=== PATIENT | female | born 1940 | race Caucasian/White ===

== ENCOUNTER → 2017-03-01 09:43 | Outpatient (CLI) | payer MEDICARE ==
[2017-03-01 10:14] LABS: BASOPHILS 0.3 % (0-2); EOSINOPHILS 1.4 % (0-7); HEMATOCRIT 44.2 % (36.0-48.0); HEMOGLOBIN 14.4 g/dL (12-16); IMMATURE GRANULOCYTES 0.2 % (0-5); LYMPHOCYTES 27.2 % (15-50); MCHC 32.6 g/dL (31.0-37.0); MEAN PLATELET VOLUME 9.7 fL (7.4-10.4); MONOCYTES 5.2 % (2-11); NEUTROPHILS 65.7 % (40-80); PLATELET COUNT 162 10x3/uL (130-400); RBC 5.14 10x6/uL (4.00-5.40); WBC 5.9 10x3/uL (4.8-10.8)
[2017-03-01 10:21] LABS: APPEARANCE CLEAR (CLEAR); BILIRUBIN NEGATIVE (NEGATIVE); COLOR YELLOW (YELLOW); GLUCOSE NEGATIVE (NEGATIVE); KETONE NEGATIVE (NEGATIVE); LEUKOCYTE ESTERASE NEGATIVE (NEGATIVE); NITRITE NEGATIVE (NEGATIVE); PROTEIN NEGATIVE (NEGATIVE); SPECIFIC GRAVITY 1.005 (1.005-1.020); UROBILINOGEN NORMAL (NORMAL)
[2017-03-01 10:32] LABS: ALT (SGPT) 22 U/L (10-68); C-REACTIVE PROTEIN < 0.2 mg/dL (0.0-0.9); CREATININE - SERUM 0.8 mg/dL (0.6-1.3); UREA NITROGEN 17 mg/dL (7-18)
[2017-03-01 12:27] LABS: ERYTHROCYTE SEDIMENTATION RATE 8 mm/hr (0-30)
== END | disposition home or self-care (01) ==
LOC: D.LAB 09:43
PROVIDERS: Internal Medicine Rheumatology
DX: M35.01 Sjogren syndrome with keratoconjunctivitis (principal)

== ENCOUNTER 2017-03-07 11:19 | Outpatient (CLI) | payer MEDICARE ==
[~2017-03-07] VITALS: Ht 152.4 cm; Wt 51.4 kg
--- NOTE | ~2017-03-07 | OP ---
PATIENT NAME: JADIEL PATINO MEDICAL RECORD: [id number] :40 LOCATION:D.CAT ADMISSION DATE: SURGEON: ELEAZAR BIRD M.D. DATE OF OPERATION: 03/07/2017 REFERRING PHYSICIAN: Dr. Loi Haskins PROCEDURES PERFORMED: 1. Selective coronary angiography. 2. Left heart catheterization with ventriculogram. INDICATION: A 76-year-old woman who presents with symptoms of worsening dyspnea and angina. EQUIPMENT USED: A 5-Bolivian [place] catheter. TECHNIQUE: A 6-Bolivian sheath was inserted in retrograde fashion in the right radial artery. Next, selective coronary angiography was performed in standard views using 5-Bolivian [place] catheter. Left heart catheterization performed using [place] catheter as well. CORONARY ANATOMY: 1. Left main: Left main trunk is large in caliber. It is calcified. It gives rise to the LAD and the circumflex. It has a distal 70-80% stenosis. 2. LAD: This is a moderate caliber vessel extending to the apex. Mid segment has a 70% stenosis. The first diagonal branch has an ostial 70-80% stenosis as well. 3. Circumflex: This vessel is small in caliber. It showed diminutive, but has mild irregularities. 4. Right coronary artery: This vessel is quite large and dominant. The proximal, mid and distal vessels are all calcified. There appears to be a 50-60% stenosis in the far distal PDA. 5. Left ventricle: Left ventricle is normal in size. Systolic function is lower limits of normal around 50%. There appears to be at least moderate mitral regurgitation noted. There is mitral annular calcification noted as well. IMPRESSION: 1. Significant distal left main disease. 2. At least moderate mitral regurgitation. RECOMMENDATIONS: I suspect her symptoms may be a combination of mitral regurgitation as well as ischemia. I will check an echocardiogram to assess her mitral regurgitation. We may need to consider surgical consultation for her left main disease. TRANSINT:[id number] Voice Confirmation ID: [id number] DOCUMENT ID: [id number] OPERATIVE REPORT [id number] JADIEL PATINO ELEAZAR BIRD M.D. CC: [id number] DICTATION DATE: 03/07/17 1412 ROPEMAN: 03/08/17 0001 DEP CLI 03/07/17 [id number] [place] [address]
--- NOTE | ~2017-03-07 | HEMODYNAMI ---
PATIENT:JADIEL PATINO MEDICAL RECORD: [id number] : 40 LOCATION:D.CAT ADMISSION DATE: 03/07/17 Generatedon:03/07/201714:11 Patient name: JADIEL PATINO Patient #: [id number] SSN: : Date of study: 03/07/2017 Page: Of Hemodynamic Procedure Report Patient Data Patient Demographics Procedure consent was obtained First Name: JADIEL Gender: Female Last Name: SUKUMAR : 1940 Middle Initial: MERRILL Age: 76 year(s) Patient #: [id number] Race: Unknown Additional ID: [id number] Contact details [address]: [address] [place] [address] State: [place] City: [place] Zip code: [address] Past Medical History Allergies: No known allergies Admission Admission Data Admission Date: 03/07/2017 Admission Time: 11:19 Lab Results Lab Result Date: 03/07/2017 Lab Result Time: 11:52 Biochemistry Name Units Result Min Max BUN mg/dl 16 --(---*)-- 7 18 Creatinine mg/dl 0.6 --(*---)-- 0.6 1.3 CBC Name Units Result Min Max Hematocrit % 42.9 --(*---)-- 42 54 Hemoglobin g/dl 14.3 --(*---)-- 13.5 17.5 Procedure Procedure Types Cath Procedure Diagnostic Procedure C [facility] w/Coronaries Miscellaneous Procedures Moderate Sedation up to 15 minutes Procedure Description Procedure Date Procedure Date: 03/07/2017 Procedure Start Time: 13:58 Procedure End Time: 14:10 Procedure Staff Name Function Domo Robins MD Performing Physician Jadyn Reed RT Scrub Kwadwo Jensen RT Monitor Jeremías Jamison RN Nurse Procedure Data Cath Procedure Fluoroscopy Diagnostic fluoroscopy Total fluoroscopy Time: 2.5 time: 2.5 min min Diagnostic fluoroscopy Total fluoroscopy dose: 277 dose: 277 mGy mGy Contrast Material Contrast Material Type Amount (ml) Isovue 300 64 Entry Location Entry Primary Successful Side Size Upsize Upsize Entry Closure Antoine ccessful Closure Location (Fr) 1 (Fr) 2 (Fr) Remarks Device Remarks Radial Right 6 Fr Mechanical artery Short Compression Estimated blood loss: 5 ml Diagnostic catheters Device Type Used For End Catheter Placement Diagnostic Terumo 5Fr Procedure [place] 110cm catheter Procedure Complications No complications Procedure Medications Medication Administration Route Dosage Oxygen NC 2 l/min Heparin Flush Bag added to field 2 bags (1000units/500ml NS) 0.9% NaCl I.V. 100 ml/hr Radial Cocktail added to field 1 syringe (Verapomil 2mg/Nitro 400mcg/Heparin 1500units) Fentanyl I.V. 50 mcg Versed I.V. 1 mg Radial Cocktail I.A. 1 syringe (Verapomil 2mg/Nitro 400mcg/Heparin 1500units) Fentanyl I.V. 50 mcg Versed I.V. 1 mg Hemodynamics Rest HGB: 14.3 (g/dl) Heart Rate: 65 (bpm) Pressure Samples Time Site Value (mmHg) Purpose Heart Use Rate(bpm) 14:00 LV 129/1,15 Snapshot 72 14:01 AO 118/62(86) Pullback 70 14:01 LV 126/-3,11 Pullback 70 Gradients Valve Time Site 1 Site 2 Mean SEP/DFP Peak To Heart Use (mmHg) (sec/min) Peak Rate (mmHg) (bpm) Aortic 14:01 LV AO 13 18 8 70 126/-3,11 118/62(86) Calculations Valve P-P Mean Valve Index Valve Source Name Gradient Area Flow (cm2) Aortic 8 13 8 13 Snapshots Pre Cath Intra NCS Post Cath Vital Signs Time Heart Resp SPO2 NIBP (mmHg) Rhythm Pain Sedation Rate (ipm) (%) Status Level (bpm) 13:40:47 69 19 97 149/83(129) NSR 0 (11) 10(A) , No pain 13:44:57 69 21 97 157/97(131) NSR 0 (11) 10(A) , No pain 13:49:15 64 19 98 142/76(124) NSR 0 (11) 10(A) , No pain 13:53:29 66 19 94 146/74(95) NSR 0 (11) 10(A) , No pain 13:57:45 69 18 95 128/70(92) NSR 0 (11) 9(A) , No pain 14:01:59 70 16 94 113/61(75) NSR 0 (11) 9(A) , No pain 14:06:05 65 17 96 117/64(87) NSR 0 (11) 9(A) , No pain 14:09:40 65 18 96 115/61(87) NSR 0 (11) 10(A) , No pain Medications Time Medication Route Dose Verified Delivered Reason Notes Effectiveness by by 13:41:15 Oxygen NC 2 l/min Jeremías Jeremías Per Shaheen Jamison RN physician RN 13:41:23 Heparin Flush added 2 bags Jeremías Jeremías used for Bag to Shaheen Jamison RN procedure (1000units/500ml field RN NS) 13:41:32 0.9% NaCl I.V. 100 Jeremías Jeremías Per ml/hr Shaheen Jamison RN physician RN 13:41:42 Radial Cocktail added 1 Jeremías Jeremías used for (Verapomil to syringe Shaheen Jamison RN procedure 2mg/Nitro field RN 400mcg/Heparin 1500units) 13:53:14 Fentanyl I.V. 50 mcg Jeremías Jeremías for sedation Shaheen Jamison RN RN 13:53:21 Versed I.V. 1 mg Jeremías Jeremías for sedation Shaheen Jamison RN RN 13:59:13 Radial Cocktail I.A. 1 Jeremías Domo for (Verapomil syringe Shaheen Robins MD vasodilation 2mg/Nitro RN 400mcg/Heparin 1500units) 13:59:18 Fentanyl I.V. 50 mcg Jeremías Jeremías for sedation Shaheen Jamison RN RN 13:59:23 Versed I.V. 1 mg Jeremías Jeremías for sedation Shaheen Jamison RN heavy equipment sales associate Log Time Note 12:57:30 Informed consent obtained and on chart 12:58:16 Diagnostic Cath status Elective 12:58:18 Time tracking: Regular hours 12:58:22 Plan of Care:Hemodynamics will remain stable., Cardiac rhythm will remain stable., Comfort level will be maintained., Respiratory function will remain adequate., Patient/ family verbilizes understanding of procedure., Procedure tolerated without complication., Recovers from procedure without complications.. 13:20:04 Kwadwo BRAMBILA(R) sent for patient. Start room use. 13:34:19 Patient received from Pre/Post Procedure Room to CCL 2 Alert and oriented. Tansferred to table in Supine position. 13:34:20 Warm blankets applied, and kandi hugger turned on for patient comfort. 13:34:21 Correct patient and procedure confirmed by team. 13:34:22 ECG and BP/O2 sat monitors applied to patient. 13:34:24 Full Disclosure recording started 13:39:38 Vital chart was started 13:41:15 Oxygen 2 l/min NC was administered by Jeremías Jamison RN; Per physician; 13:41:23 Heparin Flush Bag (1000units/500ml NS) 2 bags added to field was administered by Jeremías Jamison RN; used for procedure; 13:41:32 0.9% NaCl 100 ml/hr I.V. was administered by Jeremías Jamison RN; Per physician; 13:41:42 Radial Cocktail (Verapomil 2mg/Nitro 400mcg/Heparin 1500units) 1 syringe added to field was administered by Jeremías Jamison RN; used for procedure; 13:49:29 Baseline sample Acquired. 13:49:36 Rhythm: sinus rhythm 13:49:52 H&P Date Dictated: 03/01/2017 Within 30 days and on chart., H&P Addendum completed by physician on day of procedure. (MUST COMPLETE FOR ALL OUTPATIENTS). 13:49:53 Pre-procedure instructions explained to patient. 13:49:54 Pre-op teaching completed and patient verbalized understanding. 13:49:59 Family in waiting room. 13:50:01 Patient NPO since Midnight. 13:50:12 Patient allergic to No known allergies 13:50:14 Is the patient allergic to Iodine/contrast media? No. 13:50:18 Is patient on blood thinner?No 13:50:19 Patient diabetic? No. 13:50:25 Previous problem with sedation/anesthesia? No ? 13:50:27 Snore? No 13:50:28 Sleep apnea? No 13:50:29 Deviated septum? No 13:50:30 Opens mouth fully? Yes 13:50:31 Sticks out tongue? Yes 13:50:32 Airway obstruction? No ? 13:50:35 Dentures? No ? 13:50:37 Modified Osorio's test Ulnar < 7 seconds 13:50:39 Patient pain scale 0/10 ?. 13:50:45 IV patent on arrival in left hand with 0.9% NaCl at [facility]. 13:51:15 Lab results completed and on chart. 13:52:09 Lab Result : BUN 16 mg/dl 13:52:09 Lab Result : Hemoglobin 14.3 g/dl 13:52:09 Lab Result : Creatinine 0.6 mg/dl 13:52:09 Lab Result : Hematocrit 42.9 % 13:52:16 Right Radial & Right Groin area was prepped with chlora-prep and draped in sterile fashion 13:52:16 Alarms reviewed by R. N. 13:52:17 Sharps counted by scrub and verified by R.N. 13:52:26 Use device set Radial Dx 13:52:28 MBrace Wrist Support opened to sterile field. 13:52:30 Acist Syringe opened to sterile field. 13:52:30 Medline Cath Pack opened to sterile field. 13:52:31 Cook 21G 4cm Radial Needle opened to sterile field. 13:52:31 Bag Decanter opened to sterile field. 13:52:32 Tegaderm 4 x 4 opened to sterile field. 13:52:32 Acist Manifold opened to sterile field. 13:52:33 Acist Hand Control opened to sterile field. 13:52:43 Terumo 6Fr Slender Glidesheath opened to sterile field. 13:52:43 St Lakhwinder 260cm J .035 wire opened to sterile field. 13:52:48 Physician arrived 13:52:49 --------ALL STOP TIME OUT------ 13:52:49 Final Timeout: patient, procedure, and site verified with staff and physician. All members of the team are in agreement. 13:52:51 Right Radial & Right Groin site verified by team. 13:52:54 Physical assessment completed. ASA score P 2 - A patient with mild systemic disease as per Domo Robins MD. 13:52:58 Sedation plan: IV Moderate Sedation Versed, Fentanyl 13:53:14 Fentanyl 50 mcg I.V. was administered by Jeremías Jamison RN; for sedation; 13:53:21 Versed 1 mg I.V. was administered by Jeremías Jamison RN; for sedation; 13:55:35 Zero performed for pressure channel P1 13:58:17 Procedure started. 13:58:41 Local anesthetic to right radial artery with Lidocaine 2% by Domo Robins MD.INITIAL ACCESS ONLY 13:58:49 A 6 Fr Short sheath was inserted into the Right Radial artery 13:59:13 Radial Cocktail (Verapomil 2mg/Nitro 400mcg/Heparin 1500units) 1 syringe I.A. was administered by Domo Robins MD; for vasodilation; 13:59:18 Fentanyl 50 mcg I.V. was administered by Jeremías Jamison RN; for sedation; 13:59:18 A Diagnostic Terumo 5Fr [place] 110cm catheter was advanced over the wire and used for Procedure. 13:59:23 Versed 1 mg I.V. was administered by Jeremías Jamison RN; for sedation; 14:01:03 LV gram done using JAEGER 14:01:06 Injector settings: Ml/sec: 10, Volume: 20, 14:01:09 LV hemodynamics recorded. 14:01:37 EF : 50 % 14:02:27 LCA angiography performed. 14:05:34 Catheter removed. 14:07:30 Terumo TR Band Standard opened to sterile field. 14:07:46 Sheath removed intact; hemostasis achieved with Mechanical Compression to the Right Radial artery. 14:07:48 Procedure ended.(Physican Out) 14:07:57 Fluoroscopy time 02.50 minutes. 14:08:01 Flurop Dose total: 277 14:08:01 Fluoroscopy dose: 277 mGy 14:08:05 Contrast amount:Isovue 300 64ml. 14:08:06 Sharps counted by scrub and verified by R.N. 14:08:08 TR band inflated with 12cc of air. 14:08:09 Insertion/operative site no bleeding no hematoma. 14:08:18 Post right radial artery:stable, soft, clean and dry 14:08:20 Post Procedure Pulses reassessed and unchanged 14:08:24 Post-procedure physical assessment completed. ASA score P 2 - A patient with mild systemic disease as per Domo Robins MD. 14:08:26 Post procedure rhythm: unchanged. 14:08:29 Estimated blood loss: 5 ml 14:08:52 Post procedure instruction explained to patient.Patient verbalizes understanding. 14:08:53 Patient needs reinforcement of post procedure teaching. 14:09:07 Procedure type changed to Cath procedure, Diagnostic procedure, LHC, LHC w/Coronaries, Miscellaneous Procedures, Moderate Sedation up to 15 minutes 14:10:07 Procedure and supply charges have been captured, reviewed, submitted and are correct. 14:10:13 Procedure Complication : No complications 14:10:15 Vital chart was stopped 14:10:24 See physician's report for complete and final results. 14:10:28 Report given to Pre/Post Procedure Room. 14:10:32 Patient transfered to Pre/Post Procedure Room with Stretcher. 14:10:35 Procedure ended. 14:10:35 Full Disclosure recording stopped 14:10:39 End room use (Document Last) Device Usage Item Name Manufacture Quantity Catalog Hospital Part Current Minimal Lot# / Number Charge Number Stock Stock Serial# Code [facility] 1 140-0250-00 [id number] 60610 181585 5 Wrist Vascular Support Dynamics Acist Acist 1 03271 855273 598153 872533 20 Syringe [employer] Inc Medline Cardinal 1 [id number] 387938 41074 088457 5 Cath Pack Health Bag Microtek 1 2002S 895386 89778 979987 5 Decanter [employer] Tegaderm 4 3M 1 [id number] 465546 198756 480526 5 x 4 Acist Acist 1 74954 267420 013305 302658 5 Manifold [employer] Inc Acist Hand Acist 1 71580 567702 558058 325684 5 Control [employer] Inc Terumo 6Fr Terumo 1 [id number] 989622 725367 098940 [address] Lakhwinder 1 779162 178958 358332 408304 30 260cm J .035 wire Diagnostic Terumo 1 40-2057 178639 314107 496227 5 Terumo 5Fr [place] 110cm catheter Terumo TR Terumo 1 [id number] 342754 409032 835854 40 Band Standard Cook 21G [employer] 1 [id number] 484641 167994 5 4cm Radial Needle Signature Audit [place] Stage Time Signature Unsigned Intra-Procedure 03/07/2017 Kwadwo Jensen 2:11:32 PM RT(R) Signatures Monitor : Kwadwo Jensen RT Signature : Date : Time : [address] [place] [address]
[2017-03-07] MEDS ORDERED: SALAGEN5 MG PO (11:38)
[2017-03-07] MEDS ORDERED: TIMOPTIC 0.25% O5 M1 LEFT EYE (11:39)
[2017-03-07 11:44] VITALS: BP 168/82; Ht 152.4 cm; Wt 51.4 kg
[2017-03-07 11:56] LABS: BASOPHILS 0.3 % (0-2); EOSINOPHILS 1.5 % (0-7); HEMATOCRIT 42.9 % (36.0-48.0); HEMOGLOBIN 14.3 g/dL (12-16); IMMATURE GRANULOCYTES 0.3 % (0-5); LYMPHOCYTES 32.6 % (15-50); MCH 28.4 pg (26.0-34.0); MCHC 33.3 g/dL (31.0-37.0); MCV 85.1 fL (80.0-100.0); MONOCYTES 5.2 % (2-11); NEUTROPHILS 60.1 % (40-80); PLATELET COUNT 165 10x3/uL (130-400); RBC 5.04 10x6/uL (4.00-5.40); RDW 14.2 % (11.5-14.5); WBC 7.5 10x3/uL (4.8-10.8)
[2017-03-07 12:19] LABS: CALC OSMOLALITY 275 mosm/kg (275-300); CARBON DIOXIDE 25.1 mmol/L (21.0-32.0); CHLORIDE - SERUM 102 mmol/L (98-107); CREATININE - SERUM 0.6 mg/dL (0.6-1.3); GLUCOSE 88 mg/dL (74-106); POTASSIUM - SERUM 4.4 mmol/L (3.5-5.1); SODIUM 138 mmol/L (136-145); UREA NITROGEN 16 mg/dL (7-18); eGFR NON AFRICAN AMERICAN > 90 mL/min (90-120)
--- NOTE | 2017-03-07 14:27 | NUR ---
HR 65 NSR BP 149/53 NO DISTRESS NOTED. TR BAND TO R/WRIST CDI NO BLEEDING NO HEMATOMA NOTED. INSTRUCTED PATIENT TO KEEP RUE STRAIGHT NO BENDING OR FLEXING OF WRIST.
--- NOTE | 2017-03-07 14:50 | NUR ---
DR BIRD AT BEDSIDE TALKING TO AND PATIENT CHEST PAIN DENIED TR BAND REMAINS TO R/WRIST CDI
--- NOTE | 2017-03-07 15:04 | NUR ---
REPOSITIONED TO SITTING WITH HOB UP 30 DEGREES CHEST PAIN IS DENIED VSS TR BAND REMAINS TO R/WRIST CDI. SANDWICH AND SODA TO BEDSIDE WITH ASSISTING
--- NOTE | 2017-03-07 15:32 | NUR ---
VSS WITH CHEST PAIN DENIED. TR BAND REMAINS TO R/WRIST CDI NO BLEEDING NO HEMATOMA NOTED
--- NOTE | 2017-03-07 16:09 | NUR ---
2 CC AIR REMOVED FROM TR BAND WITH NO BLEEDING NOTED. VSS CHEST PAIN DENIED
--- NOTE | 2017-03-07 16:30 | NUR ---
2 CC AIR REMOVED FROM TR BAND WITH NO BLEEDING NO HEMATOMA NOTED
--- NOTE | 2017-03-07 16:41 | NUR ---
2 CC AIR REMOVED FROM TR BAND WITH NO BLEEDING
--- NOTE | 2017-03-07 17:06 | NUR ---
PIV REMOVED WITH DRESSING APPLIED. TR BAND REMOVED WITH NO BLEEDING NO HEMATOMA NOTED. CHEST PAIN IS DENIE WITH VSS. DISCHARGE GONE OVER WITH PATIENT AND LEFT VIA WC TO [facility] FOR TRANSPORT HOME
== END 2017-03-07 17:08 | disposition home or self-care (01) ==
LOC: D.CATH 11:19
PROVIDERS: Internal Medicine Cardiovascular Disease
DX: I25.10 Atherosclerotic heart disease of native coronary artery without angina pectoris (principal); I34.0 Nonrheumatic mitral (valve) insufficiency

== ENCOUNTER → 2017-04-19 11:36 | Outpatient (CLI) | payer MEDICARE ==
[~2017-04-19] VITALS: Ht 149.9 cm; Wt 51.4 kg
--- NOTE | ~2017-04-19 | HEMODYNAMI ---
PATIENT:JADIEL PATINO MEDICAL RECORD: [id number] : 40 LOCATION:D.CAT ADMISSION DATE: 04/19/17 Generatedon:04/19/201714:24 Patient name: JADIEL PATINO Patient #: [id number] SSN: : Date of study: 04/19/2017 Page: Of Hemodynamic Procedure Report Patient Data Patient Demographics Procedure consent was obtained First Name: JADIEL Gender: Female Last Name: SUKUMAR : 1940 Middle Initial: MERRILL Age: 76 year(s) Patient #: [id number] Race: Unknown Additional ID: [id number] Contact details [address]: [address] [place] [address] State: [place] City: [place] Zip code: [address] Past Medical History Allergies: No known allergies Admission Admission Data Admission Date: 04/19/2017 Admission Time: 11:36 Lab Results Lab Result Date: 04/19/2017 Lab Result Time: 0:00 Biochemistry Name Units Result Min Max BUN mg/dl 18 --(---*)-- 7 18 Creatinine mg/dl 0.9 --(-*--)-- 0.6 1.3 CBC Name Units Result Min Max Hemoglobin g/dl 12.8 -*(----)-- 13.5 17.5 Procedure Procedure Types Cath Procedure PCI Procedure Coronary Stent Initial Miscellaneous Procedures Moderate Sedation up to 30 minutes Procedure Description Procedure Date Procedure Date: 04/19/2017 Procedure Start Time: 13:51 Procedure End Time: 14:18 Procedure Staff Name Function Domo Williamson MD Performing Physician Gabriel Malik RT Scrub Jordyn Arrieta RN Nurse Jose Whatley RT Monitor Jan Nunez RT Nut Sifter Procedure Data Cath Procedure Fluoroscopy Diagnostic fluoroscopy Total fluoroscopy Time: 3.5 time: 3.5 min min Diagnostic fluoroscopy Total fluoroscopy dose: 197 dose: 197 mGy mGy Contrast Material Contrast Material Type Amount (ml) Isovue 300 72 Entry Location Entry Primary Successful Side Size Upsize Upsize Entry Closure Succes sful Closure Location (Fr) 1 (Fr) 2 (Fr) Remarks Device Remarks Femoral Right 6 Fr Exoseal artery Short Procedure Complications No complications Procedure Medications Medication Administration Route Dosage Oxygen NC 2 l/min Lidocaine 2% added to field 20 Heparin Flush Bag added to field 2 bags (1000units/500ml NS) Versed I.V. 1 mg Fentanyl I.V. 50 mcg Versed I.V. 1 mg Fentanyl I.V. 50 mcg Heparin Bolus I.V. 5000 units Fentanyl I.V. 25 mcg Plavix P.O. 600 mg Hemodynamics Rest HGB: 12.8 (g/dl) Heart Rate: 58 (bpm) Snapshots Pre Cath Intra NCS Post Cath Vital Signs Time Heart Resp SPO2 etCO2 [id number] NIBP (mmHg) Rhythm Pain Sedation Rate (ipm) (%) (mmHg) (mmHg) Status Level (bpm) 13:34:41 60 16 96 0 0 145/81(126) NSR 0 (11) 10(A) , No pain 13:38:57 55 19 100 0 0 137/71(99) NSR 0 (11) 10(A) , No pain 13:43:09 57 20 100 0 0 132/72(92) NSR 0 (11) 10(A) , No pain 13:47:21 64 16 95 0 0 125/67(91) NSR 0 (11) 10(A) , No pain 13:51:31 63 16 100 0 0 118/65(86) NSR 0 (11) 9(A) , No pain 13:55:41 66 16 100 0 0 115/61(95) NSR 0 (11) 9(A) , No pain 13:59:49 66 16 100 0 0 113/59(79) NSR 0 (11) 9(A) , No pain 14:03:54 67 16 100 0 0 118/67(84) NSR 0 (11) 9(A) , No pain 14:06:05 63 16 100 0 0 119/64(88) NSR 0 (11) 10(A) , No pain 14:10:11 64 16 100 0 0 123/72(91) NSR 0 (11) 10(A) , No pain 14:14:23 60 27 100 0 0 115/58(73) NSR 0 (11) 10(A) , No pain 14:19:27 59 14 100 0 0 128/64(108) NSR 0 (11) 10(A) , No pain Medications Time Medication Route Dose Verified Delivered Reason Notes Effectiveness by by 13:33:45 Oxygen NC 2 Domo Jordyn Per physician l/min Shimon Arrieta RN 13:33:52 Lidocaine 2% added 20ml Domo Domo used for to vial Shimon Williamson MD procedure field 13:33:59 Heparin Flush added 2 Domo Domo used for Bag to bags Shimon Williamson MD procedure (1000units/500ml field NS) 13:46:53 Versed I.V. 1 mg Domo Jordyn for sedation Shimon Arrieta RN 13:47:01 Fentanyl I.V. 50 Domo Jordyn for sedation mcg Shimon Arrieta RN 13:49:06 Versed I.V. 1 mg Domo Jordyn for sedation Shimon Arrieta RN 13:49:11 Fentanyl I.V. 50 Domo Jordyn for sedation mcg Shimon Arrieta RN 13:51:13 Fentanyl I.V. 25 Domo Jordyn for sedation mcg Shimon Arrieta RN 13:53:26 Heparin Bolus I.V. 5000 Domo Jordyn for dose units Shimon Arrieta RN anticoagulation verified with dr williamson 14:06:28 Plavix P.O. 600 Domo Jordyn for mg Shimon Arrieta RN antiplatelet therapy Procedure Log Time Note 13:10:12 Jan Nunez RT(R) (CV) sent for patient. Start room use. 13:25:54 ACC Patient presents with Stable Angina CCS Anginal Class 2--Slight limitation of ordinary activity. 13:25:57 Diagnostic Cath status Elective 13:26:28 Time tracking: Regular hours 13:26:33 Plan of Care:Hemodynamics will remain stable., Cardiac rhythm will remain stable., Comfort level will be maintained., Respiratory function will remain adequate., Patient/ family verbilizes understanding of procedure., Procedure tolerated without complication., Recovers from procedure without complications.. 13:26:39 Patient received from Pre/Post Procedure Room to [facility] 1 Alert and oriented. Tansferred to table in Supine position. 13:26:40 Warm blankets applied, and kandi hugger turned on for patient comfort. 13:26:41 Correct patient and procedure confirmed by team. 13:26:42 Signed procedure consent form obtained from patient. 13:26:43 ECG and BP/O2 sat monitors applied to patient. 13:33:29 Vital chart was started 13:33:45 Oxygen 2 l/min NC was administered by Jordyn Arrieta RN; Per physician; 13:33:52 Lidocaine 2% 20ml vial added to field was administered by Domo Williamson MD; used for procedure; 13:33:59 Heparin Flush Bag (1000units/500ml NS) 2 bags added to field was administered by Domo Williamson MD; used for procedure; 13:36:50 Baseline sample Acquired. 13:36:52 Rhythm: sinus rhythm 13:36:54 Full Disclosure recording started 13:40:09 H&P Date Dictated: 04/12/2017 Within 30 days and on chart., H&P Addendum completed by physician on day of procedure. (MUST COMPLETE FOR ALL OUTPATIENTS). 13:40:10 Pre-procedure instructions explained to patient. 13:40:11 Pre-op teaching completed and patient verbalized understanding. 13:40:34 Family in waiting room. 13:40:37 Patient NPO since Midnight. 13:40:50 Patient allergic to No known allergies 13:40:52 Is the patient allergic to Iodine/contrast media? No. 13:40:56 Is patient on blood thinner?No 13:40:58 Patient diabetic? No. 13:41:38 If diabetic: On Metformin? No 13:41:39 ----Pre-sedation anethsthesia assessment.---- 13:41:41 Previous problem with sedation/anesthesia? No ? 13:44:28 Snore? No 13:44:31 Sleep apnea? No 13:44:34 Deviated septum? No 13:44:35 Opens mouth fully? Yes 13:44:37 Sticks out tongue? Yes 13:44:39 Airway obstruction? No ? 13:44:41 Dentures? No ? 13:44:44 Pre procedure: right dorsailis pedis pulse 1+ Palpable, but thready & weak; easily obliterated 13:44:47 Patient pain scale 0/10 ?. 13:44:54 IV patent on arrival in left antecubital with 0.9% NaCl at 10ml/hr. 13:46:17 Lab Result : BUN 18 mg/dl 13:46:17 Lab Result : Creatinine 0.9 mg/dl 13:46:17 Lab Result : Hemoglobin 12.8 g/dl 13:46:21 Lab results completed and on chart. 13:46:24 Right groin area was prepped with chlora-prep and draped in sterile fashion 13:46:25 Alarms reviewed by R. N. 13:46: Sharps counted by scrub and verified by R.N. 13:46: --------ALL STOP TIME OUT------ 13:46: Final Timeout: patient, procedure, and site verified with staff and physician. All members of the team are in agreement. 13:46:29 Right groin site verified by team. 13:46:32 Physical assessment completed. ASA score P 2 - A patient with mild systemic disease as per Domo Williamson MD. 13:46:36 Sedation plan: IV Moderate Sedation Versed, Fentanyl 13:46:53 Versed 1 mg I.V. was administered by Jordyn Arrieta RN; for sedation; 13:47:01 Fentanyl 50 mcg I.V. was administered by Jordyn Arrieta RN; for sedation; 13:47:04 Use device set Femoral PCI 13:47:05 Acist Syringe opened to sterile field. 13:47:05 Acist Hand Control opened to sterile field. 13:47:06 Bag Decanter opened to sterile field. 13:47:06 Medline Cath Pack opened to sterile field. 13:47:07 Terumo 6Fr Chestnutridge Sheath opened to sterile field. 13:47:07 St Lakhwinder 260cm J .035 wire opened to sterile field. 13:47:08 Merit BasixCompak Inflation Kit opened to sterile field. 13:47:08 Acist Manifold opened to sterile field. 13:47:08 Tegaderm 4 x 4 opened to sterile field. 13:47:25 High Pressure Extension Tubing (Shimon) opened to sterile field. 13:47:25 Cordis 6FR XBLAD 3.5 guide catheter opened to sterile field. 13:47:26 Chaney BMW Fairmount 2 J-tip 300cm 0.014 guide wir opened to sterile field. 13:49:06 Versed 1 mg I.V. was administered by Jordyn Arrieta RN; for sedation; 13:49:11 Fentanyl 50 mcg I.V. was administered by Jordyn Arrieta RN; for sedation; 13:50:57 Procedure started. 13:51:13 Fentanyl 25 mcg I.V. was administered by Jordyn Arrieta RN; for sedation; 13:51:15 Local anesthetic to right femoral artery with Lidocaine 2% by Domo Williamson MD.INITIAL ACCESS ONLY 13:51:22 A 6 Fr Short sheath was inserted into the Right Femoral artery 13:52:46 Baseline sample Acquired. 13:52:57 Baseline sample Acquired. 13:53:26 Heparin Bolus 5000 units I.V. was administered by Jordyn Arrieta RN; for anticoagulation; dose verified with dr williamson 13:54:08 6 Fr XBLAD 3.5 guide catheter was inserted over the wire 13:54:19 ACC PCI Site: LMCA has 80% stenosis. 13:54:21 ACC Pre-intervention NARCISA Flow is 3. 13:55:58 BMW J wire advanced. 13:57:22 Inflation number: 1 A Mozec Rx 3.0 x 14 balloon was prepped and advanced across the LMCA, then inflated to 14 VINAY for 0:14 (min:sec). 13:58:29 Balloon removed over the wire. 14:00:23 Inflation Number: 2 A Bruce OTW 3.5 x 12 stent was prepped and advanced across the LMCA. The stent was deployed at 16 VINAY for 0:14 (min:sec). 14:01:50 Inflation number: 3 The stent balloon was then re-inflated across the LMCA to 20 VINAY for 0:10 (min:sec). 14:02:40 Stent catheter was removed intact over wire. 14:02:41 Wire removed. 14:02:41 Guide catheter removed. 14:03:20 Sheath removed intact; hemostasis achieved with Exoseal to the Right Femoral artery. 14:03:27 Cordis 6Fr Exoseal opened to sterile field. 14:03:30 Procedure ended.(Physican Out) 14:06:28 Plavix 600 mg P.O. was administered by Jordyn Arrieta RN; for antiplatelet therapy; 14:07:02 Fluoroscopy time 03.50 minutes. 14:07:07 Fluoroscopy dose: 197 mGy 14:07:07 Flurop Dose total: 197 14:07:14 Contrast amount:Isovue 300 72ml. 14:07:15 Sharps counted by scrub and verified by R.N. 14:07:16 Insertion/operative site no bleeding no hematoma. 14:07:18 Post-op/insertion site Right Femoral artery dressed using a 4 x 4 and Tegaderm. 14:07:21 Post right femoral artery:stable 14:07:23 Post Procedure Pulses reassessed and unchanged 14:07:25 Post procedure: right dorsailis pedis pulse 1+ Palpable, but thready & weak; easily obliterated. 14:07:28 Post procedure rhythm: sinus rhythm 14:07:30 Post procedure instruction explained to patient.Patient verbalizes understanding. 14:08:00 Procedure type changed to Cath procedure, PCI procedure, Coronary Stent Initial, Miscellaneous Procedures, Moderate Sedation up to 30 minutes 14:08:04 Procedure and supply charges have been captured, reviewed, submitted and are correct. 14:08:23 Procedure Complication : No complications 14:18:30 Vital chart was stopped 14:18:30 See physician's report for complete and final results. 14:18:36 Report given to Pre/Post Procedure Room. 14:18:40 Patient transfered to Pre/Post Procedure Room with Stretcher. 14:18:47 Procedure ended. 14:18:47 Full Disclosure recording stopped 14:18:55 ACC-PCI Only Patient was given prescriptions, or instructed by Domo Williamson MD to start/continue the following medications upon discharge: Plavix 14:19:05 End room use (Document Last) Intervention Summary Intervention Notes Time ActionType Lesion and Equipment Action# Pressure Duration Attributes Used 13:57:22 Inflate LMCA Mozec Rx 1 14 00:14 balloon 3.0 x 14 balloon 14:00:23 Place stent LMCA Wilson OTW 2 16 00:14 3.5 x 12 stent 14:01:50 Reinflate LMCA Bruce OTW 3 20 00:10 stent 3.5 x 12 balloon stent Device Usage Item Name Manufacture Quantity Catalog Hospital Part Current Minima l Lot# / Number Charge Number Stock Stock Serial# Code Acist Acist 1 [id number] [id number] 462083 [id number] 20 Room 8 Studio Acist Hand Acist 1 41700 120135 398868 219843 5 Control [employer] Inc Bag Microtek 1 2002S 932451 61293 010454 5 [employer]an[employer] Medline Cardinal 1 [id number] 233739 61683 482928 5 Cath Pack Health Terumo 6Fr Terumo 1 [id number] 266960 690011 318283 [address] Lakhwinder 1 [id number] 583723 551582 445377 30 260cm J .035 wire Merit Merit 1 [id number] 052641 741922 171525 15 N[employer] Medical Inflation Kit Acist Acist 1 31035 800237 208125 801744 5 Manifold Medical [employer] Inc Tegaderm 4 3M 1 1626W 362996 403159 041166 5 x 4 High Merit 1 [id number] 276937 42276 885410 10 Pressure Medical Extension Tubing (Williamson) Cordis 6FR Cardinal 1 [id number] 699272 158035 029501 10 XBLAD 3.5 Health guide catheter Chaney BMW Chaney 1 [id number] 878588 694571 785086 5 Fairmount 2 Vascular J-tip 300cm 0.014 guide wir Mozec Rx Cardinal 1 [id number] 873924 2640853 370311 5 UMOA71 3.0 x 14 Health balloon Wilson OTW Medtronic 1 [id number] 979296 1195908 795292 5 [id number] 3.5 x 12 stent Cordis 6Fr Cardinal 1 [id number] 231165 487653 773251 10 [facility] Health Signature Audit [place] Stage Time Signature Unsigned Intra-Procedure 04/19/2017 Jose Whatley 2:24:03 PM RT(R) Signatures Monitor : Jose Whatley RT Signature : Date : Time : [facility] [address] [place] [address]
[~2017-04-19 11:36] MED LIST: ISOSORBIDE MONO30 M1 PO; PLAVIX75 MG PO; SALAGEN5 MG PO; TIMOPTIC 0.25% O5 M1 LEFT EYE
[2017-04-19 12:08] VITALS: BP 134/72; Ht 149.9 cm; Wt 51.4 kg
[2017-04-19 12:33] LABS: ANION GAP 9.5 mmol/L (8-16); CALCIUM 8.9 mg/dL (8.5-10.1); CARBON DIOXIDE 30.4 mmol/L (21.0-32.0); CREATININE - SERUM 0.9 mg/dL (0.6-1.3); POTASSIUM - SERUM 3.9 mmol/L (3.5-5.1)
[2017-04-19 12:48] LABS: BASOPHILS 0.4 % (0-2); EOSINOPHILS 2.2 % (0-7); HEMATOCRIT 39.5 % (36.0-48.0); HEMOGLOBIN 12.8 g/dL (12-16); LYMPHOCYTES 42.2 % (15-50); MCH 27.8 pg (26.0-34.0); MCHC 32.4 g/dL (31.0-37.0); MCV 85.7 fL (80.0-100.0); MEAN PLATELET VOLUME 10.1 fL (7.4-10.4); NEUTROPHILS 48.2 % (40-80); PLATELET COUNT 166 10x3/uL (130-400); RBC 4.61 10x6/uL (4.00-5.40)
--- NOTE | 2017-04-19 14:45 | NUR ---
RIGHT GROIN CDI, NO HEMATOMA OR BLEEDING AT SITE, SOFT TO TOUCH, FAMILY AT SIDE
--- NOTE | 2017-04-19 15:13 | NUR ---
RIGHT GROIN CDI, NO BLEEDING OR HEMATOMA AT SITE. RESTING, VSS
== END | disposition home or self-care (01) ==
LOC: D.CATH 11:36
PROVIDERS: Internal Medicine Cardiovascular Disease
DX: I25.119 Atherosclerotic heart disease of native coronary artery with unspecified angina pectoris (principal); Z01.812 Encounter for preprocedural laboratory examination

== ENCOUNTER 2017-04-24 10:10 | Emergency (ER) | payer MEDICARE ==
[2017-04-19 12:08] VITALS: BMI 22.8
[2017-04-24 12:10] LABS: BASOPHILS 0.1 % (0-2); EOSINOPHILS 0.1 % (0-7); HEMATOCRIT 40.7 % (36.0-48.0); HEMOGLOBIN 13.4 g/dL (12-16); IMMATURE GRANULOCYTES 0.2 % (0-5); LYMPHOCYTES 17.2 % (15-50); MCH 27.9 pg (26.0-34.0); MCHC 32.9 g/dL (31.0-37.0); MCV 84.8 fL (80.0-100.0); MONOCYTES 7.4 % (2-11); PLATELET COUNT 166 10x3/uL (130-400); RDW 13.9 % (11.5-14.5); WBC 8.9 10x3/uL (4.8-10.8)
[2017-04-24 12:18] LABS: ANION GAP 14.3 mmol/L (8-16); APTT 24.6 SECONDS (22.8-39.4); CARBON DIOXIDE 25.6 mmol/L (21.0-32.0); CREATININE - SERUM 0.8 mg/dL (0.6-1.3); INR 1.07 (0.85-1.17); POTASSIUM - SERUM 3.9 mmol/L (3.5-5.1); PROTIME 13.8 SECONDS (11.6-15.0)
== END 2017-04-24 13:59 | disposition home or self-care (01) ==
LOC: D.ER 10:10
PROVIDERS: Nurse Practitioner Acute Care
DX: M54.31 Sciatica, right side (principal); M35.00 Sjogren syndrome, unspecified

== ENCOUNTER → 2017-06-06 17:27 | Outpatient (CLI) | payer MEDICARE ==
[2017-04-19 12:08] VITALS: BMI 22.8
[2017-06-06 20:11] LABS: BASOPHILS 0.3 % (0-2); EOSINOPHILS 1.2 % (0-7); HEMATOCRIT 42.1 % (36.0-48.0); HEMOGLOBIN 13.9 g/dL (12-16); IMMATURE GRANULOCYTES 0.2 % (0-5); LYMPHOCYTES 26.4 % (15-50); MCH 28.4 pg (26.0-34.0); MCV 85.9 fL (80.0-100.0); MEAN PLATELET VOLUME 10.5 fL (7.4-10.4); MONOCYTES 7.5 % (2-11); NEUTROPHILS 64.4 % (40-80); PLATELET COUNT 196 10x3/uL (130-400); RDW 15.3 % (11.5-14.5); WBC 6.4 10x3/uL (4.8-10.8)
== END | disposition home or self-care (01) ==
LOC: D.LABREF 17:27
PROVIDERS: Internal Medicine Cardiovascular Disease
DX: I25.10 Atherosclerotic heart disease of native coronary artery without angina pectoris (principal)

== ENCOUNTER → 2017-12-22 10:33 | Outpatient (CLI) | payer MEDICARE ==
[2017-04-19 12:08] VITALS: BMI 22.8
== END | disposition home or self-care (01) ==
LOC: D.CT 10:33
DX: R19.07 Generalized intra-abdominal and pelvic swelling, mass and lump (principal)

== ENCOUNTER → 2018-02-19 13:33 | Outpatient (CLI) | payer MEDICARE ==
[2017-04-19 12:08] VITALS: BMI 22.8
[2018-02-19 14:22] LABS: BASOPHILS 0.3 % (0-2); HEMATOCRIT 40.9 % (36.0-48.0); HEMOGLOBIN 13.7 g/dL (12-16); IMMATURE GRANULOCYTES 0.2 % (0-5); LYMPHOCYTES 29.9 % (15-50); MCH 28.7 pg (26.0-34.0); MCHC 33.5 g/dL (31.0-37.0); MCV 85.6 fL (80.0-100.0); MEAN PLATELET VOLUME 9.2 fL (7.4-10.4); MONOCYTES 3.4 % (2-11); NEUTROPHILS 65.2 % (40-80); RBC 4.78 10x6/uL (4.00-5.40); RDW 13.8 % (11.5-14.5)
[2018-02-19 14:25] LABS: PLATELET COUNT 146 10x3/uL (130-400)
[2018-02-19 14:38] LABS: ALBUMIN 3.4 g/dL (3.4-5.0); ALT (SGPT) 16 U/L (10-68); CREATININE - SERUM 0.8 mg/dL (0.6-1.3); UREA NITROGEN 15 mg/dL (7-18)
[2018-02-19 14:39] LABS: C-REACTIVE PROTEIN < 0.2 mg/dL (0.0-0.9)
[2018-02-19 14:59] LABS: APPEARANCE CLEAR (CLEAR); BILIRUBIN NEGATIVE (NEGATIVE); COLOR YELLOW (YELLOW); EPITHELIAL CELLS 0-5 /hpf (0-5); GLUCOSE NEGATIVE (NEGATIVE); KETONE NEGATIVE (NEGATIVE); NITRITE NEGATIVE (NEGATIVE); PROTEIN NEGATIVE (NEGATIVE); RED CELLS - URINE 0-5 /hpf (0-5); UROBILINOGEN NORMAL (NORMAL)
[2018-02-19 15:00] LABS: BACTERIA FEW /hpf (NONE SEEN)
[2018-02-19 15:26] LABS: ERYTHROCYTE SEDIMENTATION RATE 5 mm/hr (0-30)
== END | disposition home or self-care (01) ==
LOC: D.LAB 13:33
PROVIDERS: Internal Medicine Rheumatology
DX: M35.00 Sjogren syndrome, unspecified (principal)

== ENCOUNTER → 2018-11-28 08:00 | Outpatient (CLI) | payer MEDICARE ==
[2017-04-19 12:08] VITALS: BMI 22.8
== END | disposition home or self-care (01) ==
LOC: D.MAMMO 08:00
PROVIDERS: ATTEND Family Medicine
DX: Z12.31 Encounter for screening mammogram for malignant neoplasm of breast (principal)

== ENCOUNTER 2019-01-16 10:51 | Outpatient (CLI) | payer MEDICARE ==
[~2019-01-16] VITALS: Ht 149.9 cm; Wt 50.0 kg
--- NOTE | ~2019-01-16 | HEMODYNAMI ---
PATIENT:JADIEL PATINO MEDICAL RECORD: [id number] : 40 LOCATION:[facility] ADMISSION DATE: 01/16/19 Generatedon:01/16/201913:32 Patient name: JADIEL PATINO Patient #: [id number] SSN: : Date of study: 01/16/2019 Page: Of Hemodynamic Procedure Report Patient Data Patient Demographics Procedure consent was obtained First Name: JADIEL Gender: Female Last Name: SUKUMAR : 1940 Middle Initial: MERRILL Age: 78 year(s) Patient #: [id number] Race: Unknown Additional ID: [id number] Contact details [address]: [address] [place] [address] State: [place] City: [place] Zip code: [address] Past Medical History Allergies: No known allergies Admission Admission Data Admission Date: 01/16/2019 Admission Time: 10:51 Admit Source: Other Lab Results Lab Result Date: 01/16/2019 Lab Result Time: 11:15 Biochemistry Name Units Result Min Max BUN mg/dl 23 --(----)-* 7 18 Creatinine mg/dl 0.8 --(-*--)-- 0.6 1.3 CBC Name Units Result Min Max Hematocrit % 42.1 --(*---)-- 42 54 Hemoglobin g/dl 14.4 --(*---)-- 13.5 17.5 Procedure Procedure Types Cath Procedure Diagnostic Procedure LHC LH w/Coronaries Sedation Charges Moderate Sedation up to 15 minutes Procedure Description Procedure Date Procedure Date: 01/16/2019 Procedure Start Time: 13:10 Procedure End Time: 13:29 Procedure Staff Name Function Domo Robins MD Performing Physician Kwadwo Jensen RT Monitor Gabriel Malik RT Scrub Goran Peguero RN Nurse Procedure Data Cath Procedure Fluoroscopy Diagnostic fluoroscopy Total fluoroscopy Time: 5.5 time: 5.5 min min Diagnostic fluoroscopy Total fluoroscopy dose: 413 dose: 413 mGy mGy Contrast Material Contrast Material Type Amount (ml) Isovue 300 67 Entry Location Entry Primary Successful Side Size Upsize Upsize Entry Closure Antoine ccessful Closure Location (Fr) 1 (Fr) 2 (Fr) Remarks Device Remarks Radial Right 6 Fr Mechanical artery Short Compression Estimated blood loss: 5 ml Diagnostic catheters Device Type Used For End Catheter Placement DIAGNOSTIC [place] 110cm 5 Procedure Fr catheter ([id number]) DIAGNOSTIC AR MOD 5Fr Procedure Catheter ([id number]) DIAGNOSTIC [place] 4.5 5Fr Procedure catheter (621653) Procedure Complications No complications Procedure Medications Medication Administration Route Dosage 0.9% NaCl I.V. 100 ml/hr Oxygen etCO2 Nasal cannula 2 l/min Heparin Flush Bag added to field 2 bags (1000units/500ml NS) Lidocaine 2% added to field 20 Radial Cocktail added to field 1 syringe (Verapomil 2mg/Nitro 400mcg/Heparin 1500units) Versed I.V. 2 mg Fentanyl I.V. 100 mcg Radial Cocktail I.A. 1 syringe (Verapomil 2mg/Nitro 400mcg/Heparin 1500units) Hemodynamics Rest HGB: 14.4 (g/dl) Heart Rate: 64 (bpm) Pressure Samples Time Site Value (mmHg) Purpose Heart Use Rate(bpm) 13:12 LV 120/-5,8 Snapshot 73 13:13 AO 113/61(84) Pullback 76 13:13 LV 117/-2,12 Pullback 76 Gradients Valve Time Site 1 Site 2 Mean SEP/DFP Peak To Heart Use (mmHg) (sec/min) Peak Rate (mmHg) (bpm) Aortic 13:13 LV AO 12 16 4 76 117/-2,12 113/61(84) Calculations Valve P-P Mean Valve Index Valve Source Name Gradient Area Flow (cm2) Aortic 4 12 4 12 Snapshots Pre Cath Intra NCS Post Cath Vital Signs Time Heart Resp SPO2 etCO2 NIBP (mmHg) Rhythm Pain Sedation Rate (ipm) (%) (mmHg) Status Level (bpm) 12:58:52 63 17 99 0 141/80(99) NSR 0 (11) 10(A) , No pain 13:03:04 62 15 100 32.1 121/71(87) NSR 0 (11) 10(A) , No pain 13:07:08 63 16 100 32.2 137/77(114) NSR 0 (11) 10(A) , No pain 13:11:16 64 11 98 38.1 133/82(101) NSR 0 (11) 10(A) , No pain 13:16:39 67 13 99 33.6 119/64(80) NSR 0 (11) 10(A) , No pain 13:20:45 64 11 98 0 129/64(103) NSR 0 (11) 10(A) , No pain 13:24:55 65 13 96 0 110/65(84) NSR 0 (11) 10(A) , No pain 13:28:59 62 15 96 0 118/65(83) NSR 0 (11) 10(A) , No pain Medications Time Medication Route Dose Verified Delivered Reason Notes Effectiveness by by 13:01:45 0.9% NaCl I.V. 100 Goran Goran Per ml/hr Marielena Peguero physician RN RN 13:01:56 Oxygen etCO2 2 l/min Goran Goran for low 02 Nasal Lorigan Marielena sats cannula RN RN 13:02:10 Heparin Flush added 2 bags Goran Goran used for Bag to Marielena Peguero procedure (1000units/500ml field WALTER RN NS) 13:02:19 Lidocaine 2% added 20ml Goran Goran for local to vial Lorigan Lorigan anesthetic RN RN 13:02:31 Radial Cocktail added 1 Goran Goran used for (Verapomil to syringe Judithigan Marielena procedure 2mg/Nitro field WALTER RN 400mcg/Heparin 1500units) 13:07:35 Versed I.V. 2 mg Goran Goran for sedation Marielena Peguero RN RN 13:07:47 Fentanyl I.V. 100 mcg Goran Goran for sedation Marielena Peguero RN RN 13:12:17 Radial Cocktail I.A. 1 Goran Domo for (Verapomil syringe Marielena figueroa 2mg/Nitro RN 400mcg/Heparin 1500units) Procedure Log Time Note 12:29:42 Informed consent obtained and on chart 12:29:46 Admit Source: Other 12:30:46 Diagnostic Cath status Elective 12:30:48 Time tracking: Regular hours (M-F 7:00 - 5:00) 12:30:51 Plan of Care:Hemodynamics will remain stable., Cardiac rhythm will remain stable., Comfort level will be maintained., Respiratory function will remain adequate., Patient/ family verbilizes understanding of procedure., Procedure tolerated without complication., Recovers from procedure without complications.. 12:31:00 H&P Date Dictated: 01/08/2019 Within 30 days and on chart., H&P Addendum completed by physician on day of procedure. (MUST COMPLETE FOR ALL OUTPATIENTS). 12:33:43 Lab Result : Creatinine 0.8 mg/dl 12:: Lab Result : BUN 23 mg/dl 12:: Lab Result : Hematocrit 42.1 % 12::43 Lab Result : Hemoglobin 14.4 g/dl 12:38:42 Goran Peguero RN sent for patient. Start room use. 12:49:47 Patient received from Pre/Post Procedure Room to [facility] 2 Alert and oriented. Tansferred to table in Supine position. 12:49:49 Warm blankets applied, and kandi hugger turned on for patient comfort. 12:49:49 Correct patient and procedure confirmed by team. 12:49:50 ECG and BP/O2 sat monitors applied to patient. 12:49:50 Vital chart was started 13:01:45 0.9% NaCl 100 ml/hr I.V. was administered by Goran Peguero RN; Per physician; 13:01:56 Oxygen 2 l/min etCO2 Nasal cannula was administered by Goran Peguero RN; for low 02 sats; 13:02:10 Heparin Flush Bag (1000units/500ml NS) 2 bags added to field was administered by Goran Peguero RN; used for procedure; 13:02:19 Lidocaine 2% 20ml vial added to field was administered by Goran Peguero RN; for local anesthetic; 13:02:31 Radial Cocktail (Verapomil 2mg/Nitro 400mcg/Heparin 1500units) 1 syringe added to field was administered by Goran Peguero RN; used for procedure; 13:02:33 Baseline sample Acquired. 13:02:35 Rhythm: sinus rhythm 13:02:37 Full Disclosure recording started 13:02:37 Pre-procedure instructions explained to patient. 13:02:38 Pre-op teaching completed and patient verbalized understanding. 13:02:39 Family in waiting room. 13:02:40 Patient NPO since Midnight. 13:02:47 Patient allergic to No known allergies 13:02:48 Is the patient allergic to Iodine/contrast media? No. 13:02:50 Is patient on blood thinner?Yes 13:02:52 ACC The patient was administered the following blood thiners within the last 24 hours: ACCPlavix 13:02:54 Patient diabetic? No. 13:02:56 Previous problem with sedation/anesthesia? No ? 13:02:58 Snore? No 13:02:59 Sleep apnea? No 13:03:00 Deviated septum? No 13:03:00 Opens mouth fully? Yes 13:03:01 Sticks out tongue? Yes 13:03:02 Airway obstruction? No ? 13:03:05 Dentures? No ? 13:03:07 Pre procedure: right dorsailis pedis pulse 2+ Normal; easily identifiable; not easily obliterated 13:03:09 Modified Osorio's test Ulnar < 7 seconds 13:03:15 Patient pain scale 0/10 ?. 13:03:20 IV patent on arrival in left forearm with 0.9% NaCl at KVO. 13:03:23 Right Radial & Right Groin area was prepped with chlora-prep and draped in sterile fashion 13:03:24 Lab results completed and on chart. 13:03:25 Alarms reviewed by R. N. 13:03:26 Sharps counted by scrub and verified by R.N. 13:03:28 Use device set Radial Dx or PCI 13:03:28 ACIST Syringe (56590) opened to sterile field. 13:03:29 Medline Cath Pack ([id number]) opened to sterile field. 13:03:29 Bag Decanter (2002) opened to sterile field. 13:03:30 ACIST Hand Control (71740) opened to sterile field. 13:03:31 ACIST Manifold (13115) opened to sterile field. 13:03:31 Tegaderm 4 x 4 (1626W) opened to sterile field. 13:03:31 MBrace Wrist Support ([id number]) opened to sterile field. 13:03:33 DIAGNOSTIC WIRE .035 260cm J wire (505523) opened to sterile field. 13:03:34 NEEDLE Cook 21G 4cm Radial (H03576) opened to sterile field. 13:03:35 SHEATH 6FR Slender (80-1060) opened to sterile field. 13:03:41 Physician arrived 13:03:41 --------ALL STOP TIME OUT------ 13::41 Final Timeout: patient, procedure, and site verified with staff and physician. All members of the team are in agreement. 13:03:43 Right Radial & Right Groin site verified by team. 13:03:45 Maximum allowable Isovue 300 dose 300ml. Physician notified. (300ml for normal creatinines. For patients with creatinine of 1.7 or higher multiply weight(kg) x 5 divided by creatinine.) 13:03:48 Fire Safety Assessment: A--An alcohol-based skin anteseptic being used preoperatively., C--Open oxygen or nitrous oxide is being used., D--An ESU, laser, or fiber-optic light is being used. 13:03:51 Physical assessment completed. ASA score P 2 - A patient with mild systemic disease as per Domo Robins MD. 13:03:53 Sedation plan: IV Moderate Sedation Medication:Versed, Fentanyl 13:07:35 Versed 2 mg I.V. was administered by Goran Peguero RN; for sedation; 13:07:47 Fentanyl 100 mcg I.V. was administered by Goran Peguero RN; for sedation; 13:10:24 Procedure started. 13:10:28 Local anesthetic to right radial artery with Lidocaine 2% by Domo Robins MD.INITIAL ACCESS ONLY 13:10:49 A 6 Fr Short sheath was inserted into the Right Radial artery 13:11:01 Zero performed for pressure channel P1 13:11:43 A DIAGNOSTIC [place] 110cm 5 Fr catheter (943002) was advanced over the wire and used for Procedure. 13:12:17 Radial Cocktail (Verapomil 2mg/Nitro 400mcg/Heparin 1500units) 1 syringe I.A. was administered by Domo Robins MD; for vasodilation; 13:13:02 LV gram done using JAEGER 13:13:05 Injector settings: Ml/sec: 5, Volume: 15, 13:13:06 LV hemodynamics recorded. 13:13:15 EF : 55 % 13:13:44 LCA angiography performed. 13:19:05 Catheter exchanged over wire. 13:19:13 A DIAGNOSTIC AR MOD 5Fr Catheter ([id number]) was advanced over the wire and used for Procedure. 13:20:32 RCA angiography performed. 13:22:20 Catheter exchanged over wire. 13:22:24 A DIAGNOSTIC [place] 4.5 5Fr catheter (413273) was advanced over the wire and used for Procedure. 13:22:57 LCA angiography performed. 13:25:53 Catheter removed. 13:25:58 TR BAND Standard ([id number]) opened to sterile field. 13:26:16 Sheath removed intact; hemostasis achieved with Mechanical Compression to the Right Radial artery. 13:26:18 Procedure ended.(Physican Out) 13::28 Fluoroscopy time 05.50 minutes. 13:: Fluoroscopy dose: 413 mGy 13:: Flurop Dose total: 413 13::50 Contrast amount:Isovue 300 67ml. 13:28:52 Sharps counted by scrub and verified by R.N. 13:28:55 TR band inflated with 12cc of air. 13:28:56 Insertion/operative site no bleeding no hematoma. 13:29:00 Post right radial artery:stable, soft, clean and dry 13:29:02 Post Procedure Pulses reassessed and unchanged 13:29:04 Post-procedure physical assessment completed. ASA score P 2 - A patient with mild systemic disease as per Domo Robins MD. 13:29:05 Post procedure rhythm: unchanged. 13:29:07 Estimated blood loss: 5 ml 13:29:08 Post procedure instruction explained to patient.Patient verbalizes understanding. 13:29:08 Patient needs reinforcement of post procedure teaching. 13:29:16 Procedure type changed to Cath procedure, Diagnostic procedure, LHC, LHC w/Coronaries, Sedation Charges, Moderate Sedation up to 15 minutes 13:29:33 Procedure and supply charges have been captured, reviewed, submitted and are correct. 13:29:35 Procedure Complication : No complications 13:29:37 Vital chart was stopped 13::37 See physician's report for complete and final results. 13:29:39 Report given to Pre/Post Procedure Room. 13:29:41 Patient transfered to Pre/Post Procedure Room with Stretcher. 13:29:42 Procedure ended. 13:29:42 Full Disclosure recording stopped 13:29:47 End room use (Document Last) Device Usage Item Name Manufacture Quantity Catalog Hospital Part Current Minimal Lot# / Number Charge Number Stock Stock Serial# Code ACIST Acist 1 73979 341643 531052 294574 20 Syringe Medical (99977) Systems Inc Medline Medline 1 [id number] 041811 47699 130726 5 Cath Pack ([id number]) Bag Microtek 1 2001S 105323 80316 068149 5 Decanter Medical Inc. () ACIST Hand Acist 1 08040 088452 575439 113641 5 Control Medical (42001) Systems Inc ACIST Acist 1 08084 238797 742011 593123 5 Manifold Medical (52114) Systems Inc Tegaderm 4 3M 1 1626W 879636 098104 027046 5 x 4 (1626W) MBrace Advanced 1 140-0250-00 394843 84307 308203 5 Wrist Vascular Support Dynamics ([id number]) DIAGNOSTIC St Lakhwinder 1 433227 524609 958548 112277 30 WIRE .035 260cm J wire (440814) NEEDLE Cook Troy Medical 1 Y05902 035392 769354 360035 5 21G 4cm Radial (H67694) SHEATH 6FR Terumo 1 [id number] 627791 423299 924685 5 Slender (80-1060) DIAGNOSTIC Terumo 1 40-5013 409384 773564 947604 5 [place] 110cm 5 Fr catheter (635657) DIAGNOSTIC Cardinal 1 [id number] 653807 360823 675391 15 AR MOD 5Fr Health Catheter (341267N) DIAGNOSTIC Terumo 1 40-5012 222448 697991 322475 5 [place] 4.5 5Fr catheter (001394) TR BAND Terumo 1 [id number] 773514 344470 452996 40 Standard ([id number]) Signature Audit Downs Stage Time Signature Unsigned Intra-Procedure 01/16/2019 Kwadwo Jensen 1:32:46 PM RT(R) Signatures Monitor : Kwadwo Jensen RT Signature : Date : Time : [facility] [address] [place] [address]
[2019-01-16] MEDS ORDERED: LOPRESSOR25 MG PO (11:06)
[2019-01-16 11:20] VITALS: BP 155/79; Ht 149.9 cm; Wt 50.0 kg
[2019-01-16 11:46] LABS: BASOPHILS 0.2 % (0-2); EOSINOPHILS 1.6 % (0-7); HEMATOCRIT 42.1 % (36.0-48.0); HEMOGLOBIN 14.4 g/dL (12-16); IMMATURE GRANULOCYTES 0.2 % (0-5); LYMPHOCYTES 34.9 % (15-50); MCH 29.3 pg (26.0-34.0); MCHC 34.2 g/dL (31.0-37.0); MCV 85.7 fL (80.0-100.0); MEAN PLATELET VOLUME 9.7 fL (7.4-10.4); MONOCYTES 5.9 % (2-11); NEUTROPHILS 57.2 % (40-80); PLATELET COUNT 181 10x3/uL (130-400); RBC 4.91 10x6/uL (4.00-5.40); RDW 13.4 % (11.5-14.5); WBC 5.8 10x3/uL (4.8-10.8)
[2019-01-16 11:53] LABS: ANION GAP 9.8 mmol/L (8-16); CALCIUM 9.1 mg/dL (8.5-10.1); CREATININE - SERUM 0.8 mg/dL (0.6-1.3); POTASSIUM - SERUM 3.8 mmol/L (3.5-5.1)
--- NOTE | 2019-01-16 13:40 | NUR ---
PT RECEIVED VIA STRETCHER FROM EVENT MANAGEMENT CONSULTANT FOR RECOVERY. PT AWAKE BUT DROWSY. TR BAND AND IMMOBILIZER TO R WRIST, DRESSING CDI NO BLEEDING OR SWELLING NOTED. PT DENIES CHEST PAIN OR ANY DISCOMFORT. HR NSR RATE 65, BP 129/76, 02 SAT 99 ON 2L O2 VIA NC. CALL LIGHT IN REACH, S/O AT BEDSIDE.
--- NOTE | 2019-01-16 14:00 | NUR ---
PT SITTING UP EATING SANDWICH, PT DENIES PAIN OR NEEDS. TR BAND AND IMMOBILIZER IN PLACE, DRESSING CDI NO BLEEDING OR HEMATOMA NOTED. DR BIRD WAS IN AND SPOKE WITH PT AND S/O REGARDING PLAN OF CARE AND PROCEDURE RESULTS. VSS, CALL LIGHT IN REACH.
--- NOTE | 2019-01-16 14:14 | NUR ---
[facility]CO TECH IN TO DO ECHO PER ORDERS.
--- NOTE | 2019-01-16 14:33 | NUR ---
ECHO COMPLETED. 4CC AIR REMOVED FROM TR BAND, NO BLEEDING OR SWELLING NOTED. PT DENIES NEEDS AT THIS TIME. CALL LIGHT IN REACH, S/O REMAINS AT BEDSIDE. VSS.
--- NOTE | 2019-01-16 15:02 | NUR ---
3 ADD'L CC OF AIR REMOVED FROM TRB. NO BLEEDING OR SWELLING NOTED, DRESSING REMAINS CDI. PT DENIES PAIN OR NEEDS. VSS.
--- NOTE | 2019-01-16 15:20 | NUR ---
DISCHARGE INSTRUCTIONS REVIEWED WITH PT AND S/O, BOTH VERBALIZED UNDERSTANDING. IV REMOVED AND CATH INTACT, MONITORS REMOVED. PT UP TO DRESS FOR DISCHARGE.
--- NOTE | 2019-01-16 15:25 | NUR ---
TR BAND AND REMAINING AIR REMOVED, NO BLEEDING OR SWELLING NOTED. 2X2 AND TEGADERM DRESSING APPLIED. PT DISCHARGED VIA WC TO PRIVATE VEHICLE WITH ALL BELONGINGS.
== END 2019-01-16 15:30 | disposition home or self-care (01) ==
LOC: D.CATH 10:51
PROVIDERS: ATTEND Internal Medicine Cardiovascular Disease
DX: I25.119 Atherosclerotic heart disease of native coronary artery with unspecified angina pectoris (principal); Z01.812 Encounter for preprocedural laboratory examination

== ENCOUNTER → 2019-01-28 10:30 | Outpatient (CLI) | payer MEDICARE ==
[2019-01-16 11:20] VITALS: BMI 22.2
[~2019-01-28 10:30] MED LIST changes: +LOPRESSOR25 MG PO
[2019-01-28 12:13] LABS: PLT FUNCT.(P2Y12) PLAVIX 129 PRU (194-418)
== END | disposition home or self-care (01) ==
LOC: D.LAB 10:30
PROVIDERS: ATTEND Thoracic Surgery (Cardiothoracic Vascular Surgery)
DX: Z51.81 Encounter for therapeutic drug level monitoring (principal); Z79.02 Long term (current) use of antithrombotics/antiplatelets

== ENCOUNTER 2019-02-02 09:50 | Inpatient (IN) | payer MEDICARE ==
[2019-02-02] VITALS (12 sets, daily range): BP systolic 107–153; BP diastolic 70–88; BMI 22.2
[2019-02-02 13:18] LABS: HEMATOCRIT 41.7 % (36.0-48.0); HEMOGLOBIN 13.9 g/dL (12-16); MCH 28.7 pg (26.0-34.0); MCHC 33.3 g/dL (31.0-37.0); MCV 86.2 fL (80.0-100.0); MEAN PLATELET VOLUME 9.8 fL (7.4-10.4); RBC 4.84 10x6/uL (4.00-5.40); RDW 13.1 % (11.5-14.5); WBC 5.4 10x3/uL (4.8-10.8)
[2019-02-02 13:28] LABS: APTT 28.7 SECONDS (22.8-39.4); INR 1.02 (0.85-1.17); PROTIME 12.9 SECONDS (11.6-15.0)
[2019-02-02 13:44] LABS: ALBUMIN 3.8 g/dL (3.4-5.0); BILIRUBIN - TOTAL 0.27 mg/dL (0.2-1.3); CALCIUM 9.1 mg/dL (8.5-10.1); CARBON DIOXIDE 31.2 mmol/L (21.0-32.0); CREATININE - SERUM 0.8 mg/dL (0.6-1.3); PHOSPHOROUS 3.7 mg/dL (2.5-4.9); POTASSIUM - SERUM 4.2 mmol/L (3.5-5.1); PROTEIN - SERUM 7.3 g/dL (6.4-8.2); T4 THYROXIN - FREE 1.04 ng/dL (0.76-1.46); THYROID STIMULATING HORMONE 0.62 uIU/mL (0.36-3.74); URIC ACID 4.2 mg/dL (2.6-7.2)
--- NOTE | 2019-02-02 14:57 | NUR ---
DR. OLSON NOTIFIED OF PATIENTS ARRIVAL.
--- NOTE | 2019-02-02 15:44 | MORECARE ---
CASE MANAGEMENT DISCHARGE SUMMARY PATIENT: JADIEL PATINO UNIT: [id number] ADM DATE: 02/02/19 AGE: 78 : 40 SEX: F ROOM/BED: [facility] AUTHOR: MARIA LUISA MOSS PHYSICIAN: REFERRING PHYSICIAN: NILS OLSON MD DATE OF SERVICE: 02/02/19 Discharge Plan Patient Name[facility]EL [facility]INO [facility] [facility] 1940 Planned Disposition: Home Anticipated Discharge Date: Discharge Date: Expected LOS: Initial Reviewer: [email or web address] Initial Review Date: 02/02/2019 Generated: 02/02/19 4:44 pm Patient Name: JADIEL PATINO Page 58570 at 1544 All edits/amendments must be made on the electronic document DICTATION DATE: 02/02/19 1543 JEWEL GRINDER: JAYCE 02/02/19 1543 RPT#: [id number] DC DATE: STATUS: ADM IN [facility] [address] [place] [address] END OF REPORT
--- NOTE | 2019-02-02 15:51 | MORECARE ---
CASE MANAGEMENT DISCHARGE SUMMARY PATIENT: JADIEL PATINO UNIT: [id number] ADM DATE: 02/02/19 AGE: 78 : 40 SEX: F ROOM/BED: [facility] AUTHOR: MARIA LUISA MOSS PHYSICIAN: REFERRING PHYSICIAN: NILS OLSON MD DATE OF SERVICE: 02/02/19 Discharge Plan Patient Name: [facility]ADIEL PATINO [facility] [facility] 1940 Planned Disposition: Home Anticipated Discharge Date: Discharge Date: Expected LOS: Initial Reviewer: [email or web address] Initial Review Date: 02/02/2019 Generated: 02/02/19 4:50 pm DCPIA - Discharge Planning Initial Assessment Updated by [email or web address]: Cher Balderas on 02/02/19 3:44 pm * Is the patient Alert and Oriented? Yes * How many steps to enter\exit or inside your home? none * PCP DR JED CULLEN * Pharmacy [facility] IN [facility] * Preadmission Environment Home Alone * ADLs Independent * Equipment None * Other Equipment DENIES ANY DME * List name and contact numbers for known caregivers / representatives who currently or will assist patient after discharge: [place] [facility] [phone] * Verbal permission to speak to the caregivers and representatives has been obtained from the patient. No * Community resources currently utilized None * Please name any agencies selected above. N/A * Additional services required to return to the preadmission environment? No * Can the patient safely return to the preadmission environment? Yes * Has this patient been hospitalized within the prior 30 days at any hospital? No Last DP export: 02/02/19 2:44 pm Patient Name: JADIEL PATINO Page 08816 at 1551 All edits/amendments must be made on the electronic document DICTATION DATE: 02/02/191549 PUBLIC ADDRESS SERVICER: JAYCE 02/02/19 155 RPT#: [id number] DC DATE: STATUS: ADM IN [facility] [address] [place] [address] END OF REPORT
--- NOTE | 2019-02-02 15:59 | MORECARE ---
CASE MANAGEMENT DISCHARGE SUMMARY PATIENT: JADIEL PATINO UNIT: [id number] ADM DATE: 02/02/19 AGE: 78 : 40 SEX: F [facility] AUTHOR: ISA,DOC PHYSICIAN: REFERRING PHYSICIAN: NILS OLSON MD DATE OF SERVICE: 02/02/19 Discharge Plan Patient Name: JADIEL PATINO Facility: [facility]:[place] : 1940 Planned Disposition: Home Anticipated Discharge Date: Discharge Date: Expected LOS: Initial Reviewer: [email or web address] Initial Review Date: 02/02/2019 Generated: 02/02/19 4:59 pm Comments DCP- Discharge Planning Updated by [email or web address]: Cher Balderas on 02/02/19 2:[address] CM MET WITH THE PATIENT IN HER ROOM. SHE WAS ADMITTED FOR HEPARIN BRID[place]ING FROM [place] PREOPERATIVELY. ADMITTING MD- DR CALDWELL PCP- DR Bryan CULLEN [facility] MA[facility] ORDER DME- NONE HAS [facility] AND [facility]- COMMUNITY SERVICES - DENIES ANY SERVICES CM INTRODUCED SELF AND EXPLAINED MY ROLE. PATIENT GRANTED PERMISSION TO CONTINUE WITH ASSESSMENT. SHE WILL BE RETURNING HOME AT DISCHARGE. 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 SHE HAS A DAUGHTER, APARNA- [phone] SHE HAS A SON- IVELISSE- [phone] PATIENT IS INDEPENDENT IN HER CARE. DOES NOT FEEL SHE WILL REQUIRE SERVICES AT DISCHARGE. CM EXPLAINED CASE MANGEMENT IS AVAILABLE TO ASSIST WITH HOME HEALTH OR REHAB SERVICES IF NEEDED AT DISCHARGE. EXPLAINED CM WILL FOLLOW TO ASSIST APPROPRIATE. SHE WILL HAVE TRANSPORTATION TO HOME AT DISCHARGE. DCPIA - Discharge Planning Initial Assessment Updated by [email or web address]: Cher Balderas on 02/02/19 3:44 pm * Is the patient Alert and Oriented? Yes * How many steps to enter\exit or inside your home? none * PCP DR JED CULLEN * Pharmacy [facility] [place] [facility] * Preadmission Environment Home Alone * ADLs Independent * Equipment None * Other Equipment DENIES ANY DME * List name and contact numbers for known caregivers / representatives who currently or will assist patient after discharge: [place]- [place] NEIGHBOR [phone] * Verbal permission to speak to the caregivers and representatives has been obtained from the patient. No * Community resources currently utilized None * Please name any agencies selected above. N/A * Additional services required to return to the preadmission environment? No * Can the patient safely return to the preadmission environment? Yes * Has this patient been hospitalized within the prior 30 days at any hospital? No Last DP export: 02/02/19 2:51 pm Patient Name: JADIEL PATINO Page 81177 at 1559 All edits/amendments must be made on the electronic document DICTATION DATE: 02/02/191558 GAMMA FACILITIES OPERATOR: JAYCE 02/02/191558 RPT#: [id number] DC DATE: STATUS: ADM IN [facility] [address] [place] [address] END OF REPORT
[2019-02-02 16:42] LABS: APPEARANCE CLEAR (CLEAR); BILIRUBIN NEGATIVE (NEGATIVE); COLOR YELLOW (YELLOW); GLUCOSE NEGATIVE (NEGATIVE); KETONE NEGATIVE (NEGATIVE); NITRITE NEGATIVE (NEGATIVE); PROTEIN NEGATIVE (NEGATIVE); SPECIFIC GRAVITY 1.015 (1.005-1.020); UROBILINOGEN NORMAL (NORMAL); WHITE CELLS - URINE NSEEN /hpf (0-5)
[2019-02-02 16:43] LABS: RED CELLS - URINE RARE /hpf (0-5)
--- NOTE | 2019-02-02 19:00 | NUR ---
REPORT RECEIVED CARE ASSUMED. ASSESSMENT DONE SEE FLOW SHEET VSS. [place] ANSWERED TEACHING PROVIDED WILL CONTINUE TO MONITOR.
--- NOTE | 2019-02-02 20:30 | NUR ---
LABS REVIEWED. HEPARIN DRIP NO ADJUSTMENT NEEDED PER PROTOCOL. WILL CONITNUE TO MONITOR.
--- NOTE | 2019-02-02 22:57 | NUR ---
REASSESSMENT DONE SEE FLOW SHEET VSS NO SIGNS OF ACUTE DISTRESS NOTED WILL CONTINUE TO MONITOR.
[2019-02-03] VITALS (22 sets, daily range): BP systolic 110–159; BP diastolic 53–85
--- NOTE | 2019-02-03 01:00 | NUR ---
PT AMBULATED TO BATHROOM NO ASSISTANCE REQUIRED. VSS WILL CONTINUE TO MONITOR.
--- NOTE | 2019-02-03 02:55 | NUR ---
REASSESSMENT DONE SEE FLOW SHEET VSS WILL CONINTUE TO MONITOR.
[2019-02-03 05:59] LABS: BASOPHILS 0.2 % (0-2); EOSINOPHILS 1.8 % (0-7); HEMATOCRIT 40.4 % (36.0-48.0); HEMOGLOBIN 13.5 g/dL (12-16); IMMATURE GRANULOCYTES 0.2 % (0-5); LYMPHOCYTES 36.5 % (15-50); MCH 28.6 pg (26.0-34.0); MCHC 33.4 g/dL (31.0-37.0); MCV 85.6 fL (80.0-100.0); MEAN PLATELET VOLUME 10.1 fL (7.4-10.4); MONOCYTES 8.2 % (2-11); NEUTROPHILS 53.1 % (40-80); PLATELET COUNT 164 10x3/uL (130-400); RBC 4.72 10x6/uL (4.00-5.40); RDW 13.2 % (11.5-14.5); WBC 6.5 10x3/uL (4.8-10.8)
[2019-02-03 06:28] LABS: CALC OSMOLALITY 279 mosm/kg (275-300); CALCIUM 8.8 mg/dL (8.5-10.1); CARBON DIOXIDE 24.5 mmol/L (21.0-32.0); CHLORIDE - SERUM 105 mmol/L (98-107); CREATININE - SERUM 0.7 mg/dL (0.6-1.3); GLUCOSE 97 mg/dL (74-106); POTASSIUM - SERUM 3.6 mmol/L (3.5-5.1); SODIUM 139 mmol/L (136-145); THYROID STIMULATING HORMONE 0.69 uIU/mL (0.36-3.74); UREA NITROGEN 18 mg/dL (7-18); eGFR NON AFRICAN AMERICAN 86 mL/min (90-120)
--- NOTE | 2019-02-03 09:57 | NUR ---
AMBULATING AD ESPERANZA IN -STRESSED TO PRACTICE INCENTIVE SPIROMETRY AND BECOME PROFICIENT AT IT PRIOR TO SURGERY
--- NOTE | 2019-02-03 15:52 | NUR ---
1130-DR OLSON AT [facility]-SPOKE WITH PT AND FAMILY-ADDRESSED CONCERNS AND PRODECURE- 1200-LAB DRAWN ORDERED 1230 HEP GTT ADJUSTMENT MADE-SEE FLOW SHEET 1300-AMBULATING IN HALLWAY
--- NOTE | 2019-02-03 17:16 | NUR ---
NOTED INCREASED FRUSTRATION VOICED REGARDING FREQUENT ALARMS TO ROOM MONITOR-REMOVED O2 SAT-STRESSED EKG CABLE REQUIRED-ALARMS TO RANDOM BODY MOVEMENTS-NOT ABLE TO TURN ALARM OFF-NIBP OFF PT -
--- NOTE | 2019-02-03 18:29 | NUR ---
0-LAB DRAWN FOR PTT-FAMILY AT [facility]-AND SPOKE WITH DR SUE
--- NOTE | 2019-02-03 18:45 | NUR ---
C/O MIDSTERNAL CHEST VRAKRCHROE-[id number] TO REST AND O2 PLACED AT 2L-FOMAILY AT BEDSDIE
--- NOTE | 2019-02-03 18:58 | NUR ---
NOTIFIED DR OLSON OF COMPLAINT OF MIDSTERNAL CHEST PAIN-NIBP 168/79-83 SR WITH OCC PAC-ORDER RECIVED AND NOTED
--- NOTE | 2019-02-03 19:18 | NUR ---
REPORT RECEIVED, SHIFT ASSESSMENT COMPLETED PER FLOW SHEET. AAOX4. PPP. LT FOREARM PIV PATENT, NO SIGNS OF INFECTION OR INFILTRATION. SITTING UP IN CHAIR. DENIES NEEDS AT THIS TIME. CALL LIGHT WITHIN REACH. SEE FLOW SHEET FOR COMPLETE ASSESSMENT. WILL CONTINUE TO MONITOR.
--- NOTE | 2019-02-03 21:03 | NUR ---
SCHEDULED MEDS GIVEN, SEE EMAR FOR DETAILS. ASSISSTED TO BR, X1 BM. ASSISSTED BACK IN BED. DENIES OTHER NEEDS. CALL LIGHT WITHIN REACH.
--- NOTE | 2019-02-03 23:01 | NUR ---
REASSESSMENT COMPLETED PER FLOW SHEET, SEE FOR DETAILS. NO ACUTE CHANGES NOTED. DENIES NEEDS. CALL LIGHT WITHIN REACH. WILL CONTINUE TO MONITOR.
[2019-02-04] VITALS (50 sets, daily range): BP systolic 103–143; BP diastolic 53–79; BMI 23.1
--- NOTE | 2019-02-04 00:31 | NUR ---
CALL LIGHT ANSWERED, BLANKET PROVIDED PER PATIENT'S REQUEST. DENIES OTHER NEEDS. CALL LIGHT WITHIN REACH.
--- NOTE | 2019-02-04 02:11 | NUR ---
CALL LIGHT ANSWERED, ASSISSTED OOB TO USE BR, VOIDED X1. ASSISSTED BACK IN BED. DENIES OTHER NEEDS. CALL LIGHT WITHIN REACH.
--- NOTE | 2019-02-04 03:02 | NUR ---
REASSESSMENT COMPLETED PER FLOW SHEET, SEE FOR DETAILS. NO ACUTE CHANGES NOTED. DENIES NEEDS AT THIS TIME. CALL LIGHT WITHIN REACH. WILL CONTINUE TO MONITOR.
--- NOTE | 2019-02-04 04:00 | NUR ---
HEPARIN DRIP TURNED OFF PER DOCTOR'S ORDERS.
[2019-02-04 04:33] LABS: BASOPHILS 0.5 % (0-2); EOSINOPHILS 2.4 % (0-7); HEMATOCRIT 38.5 % (36.0-48.0); HEMOGLOBIN 12.8 g/dL (12-16); IMMATURE GRANULOCYTES 0.2 % (0-5); LYMPHOCYTES 37.7 % (15-50); MCH 28.3 pg (26.0-34.0); MCHC 33.2 g/dL (31.0-37.0); MEAN PLATELET VOLUME 9.9 fL (7.4-10.4); MONOCYTES 7.1 % (2-11); NEUTROPHILS 52.1 % (40-80); PLATELET COUNT 163 10x3/uL (130-400); RBC 4.53 10x6/uL (4.00-5.40); RDW 13.2 % (11.5-14.5); WBC 5.8 10x3/uL (4.8-10.8)
[2019-02-04 04:48] LABS: CALC OSMOLALITY 278 mosm/kg (275-300); CALCIUM 8.5 mg/dL (8.5-10.1); CARBON DIOXIDE 24.7 mmol/L (21.0-32.0); CHLORIDE - SERUM 104 mmol/L (98-107); CREATININE - SERUM 0.7 mg/dL (0.6-1.3); GLUCOSE 101 mg/dL (74-106); POTASSIUM - SERUM 3.6 mmol/L (3.5-5.1); SODIUM 139 mmol/L (136-145); UREA NITROGEN 15 mg/dL (7-18); eGFR NON AFRICAN AMERICAN 86 mL/min (90-120)
--- NOTE | 2019-02-04 05:00 | NUR ---
RESTING, NO ACUTE CHANGES NOTED, DENIES NEEDS. WILL CONTINUE TO MONITOR.
--- NOTE | 2019-02-04 05:35 | NUR ---
DR. LARIOS CALLED AND GAVE OK TO GIVE PREOP MEDS. PREOP MEDS GIVEN, SEE EMAR FOR DETAILS. FAMILY AT BEDSIDE, QUESTIONS ANSWERED, UPDATE GIVEN.
--- NOTE | 2019-02-04 06:32 | NUR ---
DR. LARIOS AT BEDSIDE TO TAKE PATIENT DOWN TO OR. FAMILY AT BEDSIDE, STATES THAT THEY WILL BE OUT IN THE WAITING AREA.
--- NOTE | 2019-02-04 12:27 | NUR ---
NOTIFIED CARDIOLOGY OFFICE OF COURTESY CONSULT.
--- NOTE | 2019-02-04 13:12 | NUR ---
TRIPLE LUMEN SITED RIGHT UPPER SUBCLAVIAN, NO CORDIS OR SWANS.
--- NOTE | 2019-02-04 13:15 | NUR ---
PT ARRIVED TO UNIT AT 1305 VIA BED. ON VENT A/C R-14 TV 500, FIO2 60%, PEEP 5. ETT 8.0 22 AT THE LIP LEFT. R-SUB CVL WITH PLASMOLYTE AT 100ML/HR, AMIODARONE AT 16.7. NITRO INITIATED AT 3ML/HR. HAS MIDSTERNAL INCISION DRESSING CDI. CT X 2 SUBSTERNAL CONNECTED TO 20CC H2O SUCTION. SOMERS IN PLACE WITH CLER YELLOW URINE NOTED. RIGHT LEG HARVEST WITH COBAN DRESSING FROM GROIN TO ANKLE. SCD AND SERENA HOSE ON LEFT LEG. L-RADIAL KOTA ZEROED ON ARRIVAL. PT CONNECTED TO ICU MASS SPECTROSCOPIST. WILL CONTINUE TO MONITOR.
--- NOTE | 2019-02-04 13:30 | NUR ---
NITRO INCREASED TO 5ML/HR TO MANAGE BP PER ORDERS.
--- NOTE | 2019-02-04 14:04 | NUR ---
20MEQ KCL INFUSING PER DR. OLSON TO TREAT K+ 3.5.
--- NOTE | 2019-02-04 14:05 | NUR ---
NITRO DECREASED TO 2ML/HR.
--- NOTE | 2019-02-04 14:33 | NUR ---
OPENING EYES ON COMMAND.
--- NOTE | 2019-02-04 16:22 | NUR ---
AMP OF BICARB GIVEN AT [address] OLSON. WILL RECHECK AGAIN IN 30MINUTES. NITRO INCREASED TO 7ML/HR AT THIS TIME. WILL CONTINUE TO MONITOR.
--- NOTE | 2019-02-04 17:11 | NUR ---
GS REPORTED TO DR. OLSON. ORDERED 20MEQ OF KCL TO BE GIVEN. OKAY TO EXTUBATE PER DR. OLSON.
--- NOTE | 2019-02-04 17:31 | NUR ---
EXTUBATED AT [address] OLSON'S ORDERS. PLACED ON 3L OF O2 VIA NC. NITRO DRIP CURRENTLY INFUSING AT 7ML/HR. WILL CONTINUE TO MONITOR.
--- NOTE | 2019-02-04 17:47 | NUR ---
FAMILY AT BEDSIDE. MORPHINE GIVEN FOR PAIN. WILL CONTINUE TO MONITOR.
--- NOTE | 2019-02-04 19:07 | NUR ---
REPORT RECEIVED, SHIFT ASSESSMENT COMPLETED PER FLOW SHEET. AAOX4. PPP. CVP AND LT RADIAL A-LINE ZEROED AND LEVELED WITH GOOD WAVEFORM. RT SUBCLAVIAN CVL PATENT, SEE IV FLOW SHEET FOR IV DRIPS, DRESSING C/D/I. X2 SUBSTERNAL CT TO 20 CM SUCTION, NO AIR LEAK, BLOODY OUTPUT. COUGH/DEEP BREATHING AND USE OF IS ENCOURAGED. COUGH WEAK AND NON-PRODUCTIVE. PULLING 500 X10 ON IS. RT LEG HARVEST SITES, COBAN DRESSING C/D/I. OSMERS CATHETER TO GRAVITY, SECURED, CLEAR YELLOW UOP. SEE FLOW SHEET FOR COMPLETE ASSESSMENT. WILL CONTINUE TO MONITOR.
--- NOTE | 2019-02-04 20:07 | NUR ---
FAMILY AT BEDSIDE, UPDATE GIVEN, QUESTIONS ANSWERED. WATER PROVIDED TO PATIENT, DENIES OTHER NEEDS. WILL CONTINUE TO MONITOR.
--- NOTE | 2019-02-04 21:11 | NUR ---
PATIENT AWAKE, SCHEDULED MEDS GIVEN, WATER PROVIDED. TOLERATED WELL, NO DYSPHAGIA. DENIES NEEDS. WILL CONTINUE TO MONITOR.
--- NOTE | 2019-02-04 23:01 | NUR ---
REASSESSMENT COMPLETED PER FLOW SHEET, SEE FOR DETAILS. AAOX4. NO ACUTE CHANGES NOTED. WATER PROVIDED, TOLERATING WELL. PULLING 500 ON IS, COUGH WEAK AND NON-PRODUCTIVE. WILL CONTINUE TO MONITOR. CALL LIGHT WITHIN REACH.
--- NOTE | 2019-02-04 23:26 | NUR ---
LAB RESULTS AVAILABLE, 5 MEQ KCL GIVEN PER PROTOCOL, SEE EMAR FOR DETAILS. WILL CONTINUE TO MONITOR.
[2019-02-05] VITALS (54 sets, daily range): BP systolic 102–139; BP diastolic 54–72
--- NOTE | 2019-02-05 00:29 | NUR ---
CALL LIGHT ANSWERED. PT C/O PAIN, PRN PERCOCET GIVEN, SEE EMAR FOR DETAILS. WATER PROVIDED, DENIES OTHER NEEDS. CALL LIGHT WITHIN REACH. WILL CONTINUE TO MONITOR.
--- NOTE | 2019-02-05 01:00 | NUR ---
RESTING, NO ACUTE DISTRESS NOTED. WILL CONTINUE TO MONITOR.
--- NOTE | 2019-02-05 03:01 | NUR ---
REASSESSMENT COMPLETED PER FLOW SHEET, SEE FOR DETAILS. NO ACUTE CHANGES NOTED. WATER PROVIDED. DENIES OTHER NEEDS. CALL LIGHT WITHIN REACH. WILL CONTINUE TO MONITOR.
--- NOTE | 2019-02-05 05:00 | NUR ---
RESTING, DENIES NEEDS AT THIS TIME. CALL LIGHT WITHIN REACH. WILL CONTINUE TO MONITOR.
[2019-02-05 06:28] LABS: BASOPHILS 0.1 % (0-2); EOSINOPHILS 0 % (0-7); HEMATOCRIT 33.5 % (36.0-48.0); HEMOGLOBIN 10.9 g/dL (12-16); IMMATURE GRANULOCYTES 0.4 % (0-5); LYMPHOCYTES 12.5 % (15-50); MCHC 32.5 g/dL (31.0-37.0); MCV 86.1 fL (80.0-100.0); MEAN PLATELET VOLUME 9.8 fL (7.4-10.4); MONOCYTES 8.1 % (2-11); NEUTROPHILS 78.9 % (40-80); PLATELET COUNT 150 10x3/uL (130-400); RBC 3.89 10x6/uL (4.00-5.40); RDW 13.9 % (11.5-14.5)
--- NOTE | 2019-02-05 06:30 | NUR ---
ASSISSTED PATIENT OOB TO CHAIR, TOLERATED WELL. CALL LIGHT WITHIN REACH. WILL CONTINUE TO MONITOR.
[2019-02-05 06:53] LABS: ALBUMIN 2.6 g/dL (3.4-5.0); ALKALINE PHOSPHATASE 45 U/L (46-116); ALT (SGPT) 15 U/L (10-68); BILIRUBIN - TOTAL 0.35 mg/dL (0.2-1.3); CALC OSMOLALITY 282 mosm/kg (275-300); CALCIUM 7.7 mg/dL (8.5-10.1); CARBON DIOXIDE 25.7 mmol/L (21.0-32.0); CHLORIDE - SERUM 107 mmol/L (98-107); CREATININE - SERUM 0.7 mg/dL (0.6-1.3); GLUCOSE 146 mg/dL (74-106); POTASSIUM - SERUM 4.1 mmol/L (3.5-5.1); PROTEIN - SERUM 5.3 g/dL (6.4-8.2); SODIUM 140 mmol/L (136-145); UREA NITROGEN 14 mg/dL (7-18); eGFR NON AFRICAN AMERICAN 86 mL/min (90-120)
[2019-02-05 06:58] LABS: WBC 9.4 10x3/uL (4.8-10.8)
--- NOTE | 2019-02-05 07:37 | OP ---
PATIENT NAME: JADIEL PATINO MEDICAL RECORD: [id number] :40 LOCATION:[facility] ADMISSION DATE:02/02/19 SURGEON: VALENTIN OLSON MD DATE OF OPERATION: 02/04/2019 OPERATIONS PERFORMED: Coronary artery bypass graft times 4 (left internal mammary artery to LAD, reverse saphenous vein graft from aorta to second diagonal, aorta to posterior descending artery sequenced on to posterolateral branch of right coronary artery). Endoscopic saphenous vein harvest. SURGEON: Valentin Olson MD BURIAL VAULT DELIVERER AND INSTALLER: Tomasz Veloz ANESTHESIA: General endotracheal anesthesia. ESTIMATED BLOOD LOSS: Total cardiopulmonary bypass with Cell Saver retransfusion, one packed red blood cells, and one platelets. COMPLICATIONS: None. SPECIMENS: None. CONDITION: Stable. DISPOSITION: CV ICU. OPERATIVE FINDINGS: 1. Small vein appropriate for the patient's size, but good quality. The smaller caliber portion was used for the diagonal graft. 2. Good quality internal mammary artery. The LAD was a severely diseased 2.0-mm vessel. 3. Second diagonal was 1.5 mm. There were no sizable obtuse marginal targets. 4. Posterior descending artery 1.5 mm [id number] sequential and posterolateral 2.0 mm with severe disease extending down to near the distal end of the vessel. 5. Transesophageal echocardiography with 1+ mitral regurgitation in a patient with known severe mitral annular calcification. OPERATIVE INDICATION: Coronary artery disease. PROCEDURE IN DETAIL: The patient was brought to the operating suite. General anesthesia was obtained. The patient was prepped and draped. Greater saphenous vein was harvested from the right lower extremity utilizing endoscopic technique. Side branches were divided by electrocautery. Vessel was ligated proximally and was removed. Side branches were clipped. Leg was irrigated and closed in 2 layers. Median sternotomy incision was made. Subcutaneous tissue was divided with electrocautery. Sternum was divided with a saw. Left hemisternum was elevated. Left pleural cavity was entered. Left internal mammary artery and vein were taken down as pedicle graft. Sterile retractor was placed. Pericardium was opened. Heparin was given. Aorta was cannulated. Dual stage venous cannula was inserted. Internal mammary OPERATIVE REPORT [id number] JADIEL PATINO was clipped distally and made ready for anastomosis. Activated clotting time was appropriately elevated. The patient was placed on cardiopulmonary bypass. Sites for distal anastomoses were selected. Antegrade cardioplegic cannula was inserted. The patient was cooled. Cross-clamp was placed. Cardioplegia was given antegrade and this was repeated at 15- to 20-minute intervals including down the completed vein grafts. Distal anastomoses were performed in standard technique and proximal anastomosis with single cross-clamp technique utilizing 7-0 Prolene due to the thin-walled vein. Proximal anastomosis was tied down. Cross-clamp was removed. Vein graft was de-aired. Proximal and distal anastomotic sites were inspected for bleeding. The patient resumed spontaneous rhythm, fully rewarmed, weaned from cardiopulmonary bypass, and was stable. The patient was decannulated. Cannula sites were oversewn. Protamine was given. Thorough irrigation was undertaken. Grafts lay appropriately. Hemostasis was assured. A drain was placed in the mediastinum and one with tip in the left pleural cavity. The internal mammary harvest site was inspected for bleeding. Pericardial fat was loosely reapproximated. The sternum was closed with wires. Fascia was closed. Subcutaneous tissue was closed. Skin was closed. Ventricular pacing wires had been placed earlier. Dermabond was used on the skin. Needle, sponge, and instrument counts were correct. The patient was taken to the ICU in stable condition. TRANSINT:[id number] Voice Confirmation ID: [id number] DOCUMENT ID: [id number] VALENTIN OLSON MD at 0737 CC: LEEAZAR BIRD M.D. and JED CULLEN MD [id number] DICTATION DATE: 02/04/19 173 COMPUTING SERVICES DIRECTOR: 02/04/19 1950 ADM IN [place] [id number] [place] [id number]
--- NOTE | 2019-02-05 10:26 | NUR ---
A-LINE DC'D PER ORDERS. PT SITTING UP IN CHAIR. RESTING COMFORTABLY. REPORTS PAIN 2/10 AT THIS TIME. TOLERATED CLEAR LIQUID DIET. NO FURTHER NEEDS AT THIS TIME. WILL CONTINUE TO MONITOR.
--- NOTE | 2019-02-05 12:00 | NUR ---
CHEST TUBES REMOVED BY DR. OLSON. PT RESTING COMFORTABLY IN BED. MEAL TRAY DELIVERED TO ROOM. FAMILY AT BEDSIDE. WILL COTNINUE TO MONITOR.
--- NOTE | 2019-02-05 14:00 | NUR ---
YONIS WATKINS'Dain PER DR. OLSON. RESTING COMFORTABLY IN CHAIR.
--- NOTE | 2019-02-05 16:17 | NUR ---
FENTANYL STRUCTURAL SHOP HELPER CONTINUOUS DOSE INCREASED TO 600MCG/HR.
--- NOTE | 2019-02-05 19:20 | NUR ---
REPORT RECEIVED, SHIFT ASSESSMENT COMPLETED PER FLOW SHEET. AAOX4. PPP. NO ACUTE DISTRESS NOTED. DENIES PAIN OR NEEDS. CALL LIGHT WITHIN REACH. SEE FLOW SHEET FOR COMPLETE ASSESSMENT. WILL CONTINUE TO MONITOR.
--- NOTE | 2019-02-05 20:17 | NUR ---
SCHEDULED MEDS GIVEN, WATER PROVIDED. TOLERATED WELL. DENIES OTHER NEEDS. CALL LIGHT WITHIN REACH.
--- NOTE | 2019-02-05 22:11 | NUR ---
CALL LIGHT ANSWERED, C/O PAIN, PRN PERCOCET GIVEN, SEE EMAR FOR DETAILS. DENIES OTHER NEEDS. CALL LIGHT WITHIN REACH. WILL CONTINUE TO MONITOR.
--- NOTE | 2019-02-05 23:01 | NUR ---
REASSESSMENT COMPLETED PER FLOW SHEET, SEE FOR DETAILS. NO ACUTE CHANGES NOTED. DENIES NEEDS. CALL LIGHT WITHIN REACH. WILL CONTINUE TO MONITOR.
[2019-02-06] VITALS (24 sets, daily range): BP systolic 103–151; BP diastolic 57–93
--- NOTE | 2019-02-06 01:00 | NUR ---
RESTING, NO ACUTE DISTRESS NOTED. DENIES NEEDS. WILL CONTINUE TO MONITOR.
--- NOTE | 2019-02-06 03:17 | NUR ---
REASSESSMENT COMPLETED PER FLOW SHEET, SEE FOR DETAILS. NO ACUTE DISTRESS NOTED. DENIES NEEDS AT THIS TIME. CALL LIGHT WITHIN REACH. WILL CONTINUE TO MONITOR.
--- NOTE | 2019-02-06 04:00 | NUR ---
COMPLETE BED BATH GIVEN, COMPLETE BED LINEN CHANGE PROVIDED. SUBSTERNAL DRESSING CHANGED PER DOCTOR'S ORDERS. TOLERATED ALL WELL. CALL LIGHT WITHIN REACH.
--- NOTE | 2019-02-06 06:00 | NUR ---
ASSISSTED OOB TO USE BR, VOIDED X1. ASSISSTED TO CHAIR, GAIT STEADY. CALL LIGHT WITHIN REACH. DENIES NEEDS. WILL CONTINUE TO MONITOR.
[2019-02-06 06:40] LABS: BASOPHILS 0.1 % (0-2); EOSINOPHILS 0.1 % (0-7); HEMATOCRIT 33.8 % (36.0-48.0); HEMOGLOBIN 11.1 g/dL (12-16); IMMATURE GRANULOCYTES 0.5 % (0-5); LYMPHOCYTES 11.2 % (15-50); MCH 28.5 pg (26.0-34.0); MCHC 32.8 g/dL (31.0-37.0); MCV 86.7 fL (80.0-100.0); MEAN PLATELET VOLUME 10.1 fL (7.4-10.4); MONOCYTES 8.8 % (2-11); NEUTROPHILS 79.3 % (40-80); PLATELET COUNT 135 10x3/uL (130-400); RDW 13.9 % (11.5-14.5); WBC 9.8 10x3/uL (4.8-10.8)
[2019-02-06 06:46] LABS: ALBUMIN 2.7 g/dL (3.4-5.0); ALKALINE PHOSPHATASE 49 U/L (46-116); ALT (SGPT) 19 U/L (10-68); BILIRUBIN - TOTAL 0.77 mg/dL (0.2-1.3); CALC OSMOLALITY 269 mosm/kg (275-300); CALCIUM 8.2 mg/dL (8.5-10.1); CARBON DIOXIDE 28.5 mmol/L (21.0-32.0); CHLORIDE - SERUM 101 mmol/L (98-107); CREATININE - SERUM 0.6 mg/dL (0.6-1.3); GLUCOSE 125 mg/dL (74-106); POTASSIUM - SERUM 3.9 mmol/L (3.5-5.1); PROTEIN - SERUM 5.9 g/dL (6.4-8.2); SODIUM 134 mmol/L (136-145); UREA NITROGEN 16 mg/dL (7-18); eGFR NON AFRICAN AMERICAN > 90 mL/min (90-120)
--- NOTE | 2019-02-06 09:16 | NUR ---
Nutrition Follow Up: Regular diet ordered with 10,20,30% intake of meals yesterday Pt reports appetite is poor Custom ordered lunch to improve toleration Weight 117.9lb Encouraged Boost to help improve nutrient intake while healing RD following
--- NOTE | 2019-02-06 10:06 | NUR ---
0700 PT RECIEVED ALERT AND OREINTED VSS ON 1L O2 R SUBCLAVIAN CVL DRESSING CDI, SL, MIDSTERNAL AND SUBSTERNAL DRESSINGS CDI WITH SUBSTERNAL TPM WIRES COILED TO CHEST, CONTIENT, PULLING 500 ON ISM, REQUIRES MUCH ENCOURAGEMENT, WILL CONTNINUE TO MONITOR 0800 REFUSED BREAKFAST, REQUESTED BOOST, BROUGHT BY DIETARY 1000 AMBULATED WITH THERAPY
--- NOTE | 2019-02-06 13:39 | NUR ---
pt pulling 750-1000 on is, denies all needs, family here for visitation pt states she had a bath this am and does not want another
--- NOTE | 2019-02-06 17:34 | NUR ---
1500 PT DENIES ALL NEEDS, VOIDS WITH MINIMAL ASSISTANCE, ATTEMPTED TO WEAN O2, UNABLE AT THIS TIME WITH SPO2 DROPPING TO 85% 1700 PT ABLE TO REPOSITION SELF IN CHAIR THROUGHOUT DAY, ATE 25% DINNER, OFFERED ALTERNATIVES AND BOOST, WILL CONTINUE TO MONITOR
--- NOTE | 2019-02-06 18:00 | NUR ---
PT C/O ROOM BEING TOO COLD. WORK ORDER PLACED TO INCREASE TEMP.
--- NOTE | 2019-02-06 18:24 | NUR ---
ASSISTED BACK TO BED, CVL DRESSING CHANGED
--- NOTE | 2019-02-06 18:40 | NUR ---
ENGINEERING CAME WITH TEMPERATURE GUN TO SEE WHAT TEMP ROOM IS. READING 64. PT HAS FAN AT BEDSIDE ON, WITH SEVERAL BLANKETS COVERING HER. I ASKED HER IF SHE WAS COLD WHY SHE HAD THE FAN ON. SHE SAID IT WAS BECAUSE IT GOT TOO HOT LAST NIGHT. I ASKED HER IF SHE WAS HOT NOW, AND SHE SAID SHE WAS NOT, BUT SHE KNEW IT WAS GOING TO GET HOT IN THE ROOM AGAIN LIKE LAST NIGHT SO SHE WANTED THE FAN ON, BUT THAT I COULD TURN IT OFF FOR NOW AND SHE CAN GET IT TURNED BACK ON LATER IF SHE GETS HOT. SHE THEN WANTED TO KNOW WHY WE ARE CHECKING THE TEMP IN HER ROOM. I TOLD HER BECAUSE SHE HAD C/O IT BEING TOO COLD IN HER ROOM EARLIER. SHE THEN SAID SHE NEVER SAID SHE WAS COLD.
--- NOTE | 2019-02-06 19:00 | NUR ---
SHALLOW RESPIRATIONS, LUNG SOUNDS CLEAR/DIMINISHED. WEAK COUGH. I/S REACHING 500 X10. S1S2 HEARD,
--- NOTE | 2019-02-06 21:17 | NUR ---
HS MEDS GIVEN, FRESH WATER PROVIDED. PT REPOSITIONED FOR COMFORT. VSS, CALL LIGHT WITHIN PT REACH. CPOC.
[2019-02-06 22:11] LABS: MAGNESIUM - SERUM 1.8 mg/dL (1.8-2.4); POTASSIUM - SERUM 3.6 mmol/L (3.5-5.1)
--- NOTE | 2019-02-06 23:00 | NUR ---
REASSESSMENT COMPLETE, NO NEW CHANGES AT THIS TIME. I/S COMPLETED REACHING 500 X10. WEAK COUGH. PT REPOSITIONED FOR COMFORT. VSS, DENIES FURTHER NEEDS. CALL LIGHT AND BEDSIDE TABLE WITHIN PT REACH. CPOC.
[2019-02-07] VITALS (24 sets, daily range): BP systolic 98–228; BP diastolic 58–90
--- NOTE | 2019-02-07 03:00 | NUR ---
REASSESSMENT COMPLETE, NO NEW CHANGES AT THIS TIME. PT REPOSITIONED FOR COMFORT. VSS, NO C/O PAIN AT THIS TIME. I/S COMPLETED REACHING 500 X10. CALL LIGHT AND BEDSIDE TABLE WITHIN PT REACH. CPOC.
--- NOTE | 2019-02-07 03:42 | NUR ---
PT UP TO BATHROOM WITH MINIMAL ASSISTANCE. PARTIAL LINEN CHANGE COMPLETE. VSS, NO C/O PAIN AT THIS TIME. DENIES FURTHER NEEDS. CALL LIGHT AND BEDSIDE TABLE WITHIN PT REACH. CPOC.
[2019-02-07 04:30] LABS: BASOPHILS 0 % (0-2); EOSINOPHILS 0.4 % (0-7); HEMATOCRIT 31.5 % (36.0-48.0); HEMOGLOBIN 10.2 g/dL (12-16); IMMATURE GRANULOCYTES 0.1 % (0-5); LYMPHOCYTES 13.9 % (15-50); MCH 28.1 pg (26.0-34.0); MCHC 32.4 g/dL (31.0-37.0); MCV 86.8 fL (80.0-100.0); MEAN PLATELET VOLUME 9.4 fL (7.4-10.4); MONOCYTES 7.2 % (2-11); NEUTROPHILS 78.4 % (40-80); PLATELET COUNT 122 10x3/uL (130-400); RBC 3.63 10x6/uL (4.00-5.40); RDW 13.7 % (11.5-14.5)
[2019-02-07 04:53] LABS: ALBUMIN 2.5 g/dL (3.4-5.0); ALKALINE PHOSPHATASE 53 U/L (46-116); ALT (SGPT) 16 U/L (10-68); BILIRUBIN - TOTAL 0.61 mg/dL (0.2-1.3); CALC OSMOLALITY 270 mosm/kg (275-300); CALCIUM 8.2 mg/dL (8.5-10.1); CARBON DIOXIDE 29.1 mmol/L (21.0-32.0); CHLORIDE - SERUM 102 mmol/L (98-107); CREATININE - SERUM 0.5 mg/dL (0.6-1.3); GLUCOSE 112 mg/dL (74-106); MAGNESIUM - SERUM 1.9 mg/dL (1.8-2.4); POTASSIUM - SERUM 3.9 mmol/L (3.5-5.1); SODIUM 135 mmol/L (136-145); UREA NITROGEN 13 mg/dL (7-18); eGFR NON AFRICAN AMERICAN > 90 mL/min (90-120)
--- NOTE | 2019-02-07 06:00 | NUR ---
PT UP TO CHAIR, PARTIAL LINEN CHANGE. WEAK COUGH, I/S COMPLETED REACHING 500 X 10. VSS, DENIES NEEDS AT THIS TIME. CALL LIGHT AND BEDSIDE TABLE WITHIN PT REACH. CPOC.
--- NOTE | 2019-02-07 08:48 | NUR ---
0700 PT RECIEVED UP IN CHAIR ALERT AND ORIENTED O2 4L NC DECREASED TO 2 L NC, R SUBCLAVIAN CVL DRESSING CDI, SL, MIDSTERNAL AND SUBSTERNAL DRESSINGS CDI WITH SUBSTERNAL TPM WIRES COILED TO CHEST, RLE HARVEST SITES CDI, PT ASSISTED TO BATHROOM, PASSING GAS BUT UNABLE TO HAVE BM, URINATED, ASSISTED BACK TO CHAIR, ZOFRAN GIVEN PER EMAR FOR NAUSEA, 0840 AM MEDS GIVEN, PT STATED NO LONGER NAUSOUS AND REQUESTED BREAKFAST TRAY, SUBSTERNAL DRESSING CHANGED PER ORDERS, PAIN MEDICATION PER EMAR, DAUGHTER HERE FOR VISITATION, CALL LIGHT WITHIN REACH, NO NEEDS NOTED
--- NOTE | 2019-02-07 12:33 | NUR ---
1100 PT AMBULATED WITH THERAPY 1230 PT HAD BATH AND ATE 50% LUNCH TRAY
--- NOTE | 2019-02-07 17:00 | NUR ---
1500 AMBULATED WITH THERAPY 1700 ATTEMPTED TO WEAN O2 THROUGHOUT DAY, UNABLE DUE TO SPO2, CURRENTLY O2 1L NC, ATE 50% DINNER, ASSISTED TO BATHROOM TO VOID THROUGOUT DAY
--- NOTE | 2019-02-07 19:00 | NUR ---
ASSESSMENT COMPLETED PER FLOWSHEETS. PT SITTING IN CHAIR WATCHING TV, WITHOUT DISTRESS. SR ON CM WITH HR AT 95BPM, LUNG SOUNDS CLEAR TO AUSCULTATION. MIDSTERNAL DRESSING C,D,I. SUBTERNAL TPM DRESSING INTACT C,D,I. RT SC CVL INTACT. RT LOWER EXTREM AT HARVEST SITE BRUISING NOTED. PPP. CALL LIGHT IN REACH. CONT TO MONITOR.
--- NOTE | 2019-02-07 21:00 | NUR ---
ASSISTED TO BATHROOM. PT VOIDS WITHOUT DIFFIC. ABCK TO BED REPOSITIONED SELF FOR COMFORT. HOB UP. CALL LIGHT IN REACH. CPOC.
--- NOTE | 2019-02-07 23:00 | NUR ---
REASSESSMENT COMPLETED PER FLOWSHEETS. NO ACUTE CHANGES NOTED IN PT'S STATUS. VSS. NO NEEDS VOICES AT THIS TIME. CALL LIGHT IN REACH. CPOC.
[2019-02-08] VITALS (21 sets, daily range): BP systolic 102–164; BP diastolic 59–89
--- NOTE | 2019-02-08 01:00 | NUR ---
PT RESTING QUIETLY WITHOUT DISTRESS, VSS. NO NEEDS VOICES AT THIS TIME. CPOC.
--- NOTE | 2019-02-08 02:00 | NUR ---
ASSISTED TO BATHROOM WIHOUT DIFFIC. PT KHLOE WELL. BACK TO BED, STONE CLEANER ATTACHED. REPOSITIONED SELF IN BED. CALL LIGHT IN REACH,
--- NOTE | 2019-02-08 03:00 | NUR ---
REASSESSMENT COMPLETED PER FLOWSHEETS.NO ACUTE CHANGED NOTED IN PT'S CONDITION. VSS. CPOC.
[2019-02-08 05:51] LABS: HEMATOCRIT 30.7 % (36.0-48.0); MCH 28.3 pg (26.0-34.0); MCHC 32.6 g/dL (31.0-37.0); MEAN PLATELET VOLUME 10.1 fL (7.4-10.4); RBC 3.53 10x6/uL (4.00-5.40); RDW 13.6 % (11.5-14.5); WBC 5.4 10x3/uL (4.8-10.8)
[2019-02-08 06:04] LABS: ALBUMIN 2.3 g/dL (3.4-5.0); ALKALINE PHOSPHATASE 55 U/L (46-116); ALT (SGPT) 17 U/L (10-68); BILIRUBIN - TOTAL 0.51 mg/dL (0.2-1.3); CALC OSMOLALITY 277 mosm/kg (275-300); CARBON DIOXIDE 29.1 mmol/L (21.0-32.0); CHLORIDE - SERUM 103 mmol/L (98-107); CREATININE - SERUM 0.6 mg/dL (0.6-1.3); GLUCOSE 103 mg/dL (74-106); POTASSIUM - SERUM 3.6 mmol/L (3.5-5.1); PROTEIN - SERUM 5.9 g/dL (6.4-8.2); SODIUM 139 mmol/L (136-145); UREA NITROGEN 13 mg/dL (7-18); eGFR NON AFRICAN AMERICAN > 90 mL/min (90-120)
--- NOTE | 2019-02-08 09:49 | NUR ---
NUTRITION F//U CHART REVIEWED. PT UP TO CHAIR WITH VISITOR IN ROOM. TOLERATING REG DIET BUT INTAKE RECENT MEALS HAS BEEN POOR. WILL CONTINUE TO HONOR FOOD PREFERENCES, MONITOR PT PROGRESS. RD FOLLOWING
--- NOTE | 2019-02-08 16:41 | TEE ---
PATIENT:JADIEL PATINO MEDICAL RECORD: [id number] LOCATION:[place] [address] AGE OF PATIENT: 78 ADMISSION DATE: 02/02/19 SEX: F REFERRING PHYSICIAN: INTERPRETING PHYSICIAN: DESIRAE ALVAREZ MD TRANSESOPHAGEAL ECHOCARDIOGRAM Date: 02/04/19 ANTON CHARGE Y INDICATIONS: CABG PREMEDICATIONS: PATIENT'S RESPONSE PROCEDURE DOPPLER MEASUREMENTS: LVIT LA PA RA LVOT RVOT Asc. Ao AV Gradient Peak AV Mean AV Area MV Gradient Peak MV Mean MV Area INTERPRETATION: LVd: 3.4 cm LVs: 1.9 cm Doppler: 2-D: COLOR FLOW DOPPLER NORMAL SALINE STUDY: MISCELLANOUS: DIAGNOSIS: PLAN: Overhead Worker:Karen Robins [employer] Fire Fighter: Aspen CURIEL COMMENTS: DATE OF SERVICE: 02/04/2019 PROCEDURE: Transesophageal echo evaluation of valvular structures during bypass surgery. 1. Left ventricular chamber size is within normal limits. Left ventricular systolic function is normal. Overall ejection fraction estimated at 60%. 2. Left atrium, right atrium, and right ventricular chamber sizes are within normal limits. TRANSESOPHAGEAL ECHOCARDIOGRAM REPORT [id number] JADIEL PATINO 3. Valvular structures have normal structure and motion. 4. Doppler interrogation reveals mild mitral regurgitation, [id number] tricuspid regurgitation, no other valvular insufficiency or stenosis. 5. No evidence of pericardial effusion or left ventricular thrombus. TRANSINT:[id number] Voice Confirmation ID: [id number] DOCUMENT ID: [id number] at 1641 CC: [id number] DICTATION DATE: 02/05/19 1212 FREIGHT DELIVERY DRIVER: 02/06/19 0058 ADM IN [place] [id number] [place] [address]
[2019-02-09] VITALS (26 sets, daily range): BP systolic 110–170; BP diastolic 60–91
[2019-02-09 06:23] LABS: HEMATOCRIT 32.3 % (36.0-48.0); HEMOGLOBIN 10.6 g/dL (12-16); MCH 28.3 pg (26.0-34.0); MCHC 32.8 g/dL (31.0-37.0); MCV 86.4 fL (80.0-100.0); MEAN PLATELET VOLUME 9.7 fL (7.4-10.4); RBC 3.74 10x6/uL (4.00-5.40); RDW 13.5 % (11.5-14.5); WBC 4.3 10x3/uL (4.8-10.8)
[2019-02-09 06:36] LABS: ALBUMIN 2.6 g/dL (3.4-5.0); ALKALINE PHOSPHATASE 62 U/L (46-116); BILIRUBIN - TOTAL 0.46 mg/dL (0.2-1.3); CALC OSMOLALITY 275 mosm/kg (275-300); CALCIUM 8.4 mg/dL (8.5-10.1); CARBON DIOXIDE 29.3 mmol/L (21.0-32.0); CHLORIDE - SERUM 102 mmol/L (98-107); CREATININE - SERUM 0.6 mg/dL (0.6-1.3); GLUCOSE 103 mg/dL (74-106); POTASSIUM - SERUM 3.4 mmol/L (3.5-5.1); PROTEIN - SERUM 6.2 g/dL (6.4-8.2); SODIUM 138 mmol/L (136-145); UREA NITROGEN 12 mg/dL (7-18); eGFR NON AFRICAN AMERICAN > 90 mL/min (90-120)
[2019-02-09 06:38] LABS: ALT (SGPT) 26 U/L (10-68)
--- NOTE | 2019-02-09 07:20 | NUR ---
CPAP BY RT-DIPRIVAN OFF-FOUND OGT NOT SECURED AND IN CORRECT POSITION-TURNED OFF TUBE FEEDING- AND REMOVED OGT-IN ORAL CAVITY ONLY-PT ALERT-COUGHING AGAINST VENT-ENCOURAGED DEEP RESPIRATIONS
--- NOTE | 2019-02-09 10:05 | NUR ---
0830-AMBULATED IN HALLWAY WITH PHYSICAL THERAPY
--- NOTE | 2019-02-09 17:08 | NUR ---
1215-DR VALDEZ AT [facility] -REVIEWED WITH PT AND FAMILY CURRENT STATUS AND CONTINUED PLAN OF ACTION-PT STATED PAIN PILL WAS NOT HELPING HER PAIN-ORDER RECIEVED-PERCOCET 10MG PO GIVEN- 1500-ASSISTED PT WITH AM CARE-PT STATED PAIN PILL RESOLVED PAIN COMPLETELY-COMPLAINED TOO STRONG-"MADE ME FEEL WEIRD" 163-REQUESTING PAIN MED FOR 01/09-STATED DO NOT WANT THE STRONG ONE-DR VALDEZ NOTIFIED-
--- NOTE | 2019-02-09 19:51 | NUR ---
REPORT RECEIVED AND ASSESSMENT COMPLETED. SEE FLOWSHEET FOR FULL DETAILS. VSS. WILL MONITOR THROUGHOUT SHIFT. FAMILY AT BEDSIDE.
[2019-02-10] VITALS (21 sets, daily range): BP systolic 101–154; BP diastolic 54–92
--- NOTE | 2019-02-10 02:53 | NUR ---
REASSESSMENT COMPLETED. SEE FLOWSHEET FOR FULL DETAILS. VSS. WILL MONITOR
--- NOTE | 2019-02-10 03:07 | NUR ---
PT RESTING IN ROOM VSS. WILL CONTINUE TO MONITOR
[2019-02-10 06:23] LABS: HEMATOCRIT 32.7 % (36.0-48.0); HEMOGLOBIN 10.7 g/dL (12-16); MCH 28.2 pg (26.0-34.0); MCHC 32.7 g/dL (31.0-37.0); MCV 86.1 fL (80.0-100.0); MEAN PLATELET VOLUME 9.6 fL (7.4-10.4); RBC 3.8 10x6/uL (4.00-5.40); RDW 13.4 % (11.5-14.5); WBC 4.5 10x3/uL (4.8-10.8)
[2019-02-10 06:34] LABS: ALBUMIN 2.6 g/dL (3.4-5.0); ALKALINE PHOSPHATASE 63 U/L (46-116); ALT (SGPT) 18 U/L (10-68); BILIRUBIN - TOTAL 0.45 mg/dL (0.2-1.3); CALC OSMOLALITY 275 mosm/kg (275-300); CALCIUM 8.4 mg/dL (8.5-10.1); CARBON DIOXIDE 27.6 mmol/L (21.0-32.0); CHLORIDE - SERUM 103 mmol/L (98-107); CREATININE - SERUM 0.6 mg/dL (0.6-1.3); GLUCOSE 108 mg/dL (74-106); POTASSIUM - SERUM 3.5 mmol/L (3.5-5.1); PROTEIN - SERUM 6.5 g/dL (6.4-8.2); SODIUM 138 mmol/L (136-145); UREA NITROGEN 11 mg/dL (7-18); eGFR NON AFRICAN AMERICAN > 90 mL/min (90-120)
--- NOTE | 2019-02-10 10:04 | NUR ---
0730-RECIEVED AWAKE AND ALERT UP IN CHAIR-O2 AT 2L DATA COMMUNICATIONS SOFTWARE CONSULTANT-SAT 94-REMOVED O2-ENCOURAGED DB AND COUGHING TO RESOLVE O2 ISSUES-STRESSED NO O2 REQUIRED PRIOR TO SURGERY-GOAL IS FOR BETTER OUTCOME POST OP-PT AGREEABLE 0900[facility]AN: WALK ON PORT O2SAT AND NO O2-MONITOR FOR DROPS IN SAT<90-STOP PT WALK IF OCCURS-STRESS DB X3 AND RESUME WALK-REMAINED ON ROOMAIR O2 SAT CONSISTANT 92% AND SR
--- NOTE | 2019-02-10 14:00 | NUR ---
1100-DR VALDEZ AT BEDSIDE-SPOKE WITH PT AND FAMILY REGARDING CURRENT STATUS, PROGRESS AND OUTLINED CONTINUED PLAN OF CARE-STRESSED FOR PT TO DO INCENTIVE SPIROMETRY WITH MINIMUM 1000ML-FREQUENTLY IN HOSPITAL AND CONTINUE Q 4H AT HOME-PT AND FAMILY APPEARED TO COMPREHEND-QUESTIONS ADDRESSED BY DR VALDEZ 1400-AMBULATING ON ROOM AIR IN HALLWAY WITH FAMILY MEMBER
--- NOTE | 2019-02-10 15:37 | NUR ---
STATES BACK RESOLVES WITH AMBULATION
--- NOTE | 2019-02-10 17:16 | NUR ---
AMBULATING EASILY IN ON PORTABLE TELEMETRY AND OXIMETRY
--- NOTE | 2019-02-10 19:00 | NUR ---
Received walking around room without difficulty, assessment completed per flowsheet. Patient AO x4, answers appropriately/follows instructions. S1/S2 noted NSR on telemetry with HR 85, rythmic and regular. Breathing is even/unlabored on room air with O2 sat 94%, lung sounds clear throughout. Midline sternum incision dressing CDI, Substernal TPM wires x1 coiled/secured. All pulses palpable with cap refill < 3 sec, skin warm/dry with full ROM all extremities. Deneis pain or other needs at this time, see flowsheet for details. All VSS and will continue to monitor.
--- NOTE | 2019-02-10 20:52 | NUR ---
Patient sitting in chair at bedside, ambulates self to bathroom without assist. HS meds given wihtout difficulty, discussed dicharge plans with all questions answered to satisfaction. No further needs at this time, all VSS and will continue to monitor.
--- NOTE | 2019-02-10 23:00 | NUR ---
Reassessment completed per flowsheet, no changes from previous assessment. Patient resting in bed with eyes closed, no s/s of distress. S1/S2 noted NSR on telemetry with HR 89, rythmic and regular. Breathing is even/unlabored on room air with O2 sat 91%, lung sounds clear throughout. All pulses palpable with cap refill < 3 sec, skin warm/dry. C/O back pain 5/10, PRN medication provided and will reassess. No further needs at this time, see flowsheet for details. All VSS and will continue to monitor.
[2019-02-11] VITALS (10 sets, daily range): BP systolic 115–155; BP diastolic 55–84
--- NOTE | 2019-02-11 01:00 | NUR ---
Patient resting in bed with eyes closed, no s/s of distress at this time. No further needs at this time, all VSS and will continue to monitor.
--- NOTE | 2019-02-11 03:00 | NUR ---
Reassessment completed per flowsheet, no changes from previous assessment. S1/S2 noted NSR on telemetry with HR 80, rythmic and regular. Breathing is even/unlabored on room air with O2 sat 91%, lung sounds clear throughout. All pulses palpable with cap refill < 3 sec, skin warm/dry. C/O intermittent back aching /10, repositioned with some stated relief. No further needs at this time, see flowsheet for details. All VSS and will continue to monitor.
--- NOTE | 2019-02-11 05:00 | NUR ---
Patient off unit to radiology for PA/Lat, tolerated well. Returned to CV and placed in chair at bedside, all VSS and will continue to monitor.
[2019-02-11 05:43] LABS: HEMATOCRIT 34.2 % (36.0-48.0); HEMOGLOBIN 11.2 g/dL (12-16); MCH 28.1 pg (26.0-34.0); MCHC 32.7 g/dL (31.0-37.0); MCV 85.9 fL (80.0-100.0); MEAN PLATELET VOLUME 9.5 fL (7.4-10.4); RBC 3.98 10x6/uL (4.00-5.40); RDW 13.4 % (11.5-14.5); WBC 5.1 10x3/uL (4.8-10.8)
[2019-02-11 05:58] LABS: ALBUMIN 2.8 g/dL (3.4-5.0); ANION GAP 11.6 mmol/L (8-16); BILIRUBIN - TOTAL 0.5 mg/dL (0.2-1.3); CALCIUM 8.6 mg/dL (8.5-10.1); CARBON DIOXIDE 26.3 mmol/L (21.0-32.0); POTASSIUM - SERUM 3.9 mmol/L (3.5-5.1); PROTEIN - SERUM 6.7 g/dL (6.4-8.2)
[2019-02-11 06:02] LABS: CREATININE - SERUM 0.8 mg/dL (0.6-1.3)
--- NOTE | 2019-02-11 09:26 | NUR ---
Nutrition Follow Up: Regular diet with 100% intake of some meals based on available documentation Pt reports intake is improved and she likes some of the food Pt is drinking a supplememt from home Weight 115lb Pt reports no nutrition questions about home diet. RD following
[2019-02-11] MEDS ORDERED: AMIODARONE HCL200 MG PO (09:43)
[2019-02-11] MEDS ORDERED: ASPIRIN EC81 M1 PO (09:44)
[2019-02-11] MEDS ORDERED: COLACE100 MG PO (09:45)
[2019-02-11] MEDS ORDERED: PERCOCET 5-3251 TAB PO (09:46)
--- NOTE | 2019-02-11 10:16 | NUR ---
0730 REPORT RECIEVED AND CARE ASSUMED OF PATIENT.. PATIENT IS SITTING IN CHAIR AT BEDSIDE WATCHING TV, DENIES C/O PAIN AT THIS TIME.. THERE IS A TELEMETRY HEART MONITOR ON PATIENT AND PATIENT IS AMBULATING SELF.. SEE FLOW SHEET FOR ALL ASSESMENT FINDINGS.. 0800 CONTINUES IN CHAIR AND BREAKFAST SERVED PT IS FEEDING SELF.. 0830 FAMILY AT BEDSIDE UPDATE IS GIVEN.. 0900 MEDS GIVEN PATIENT IS AMBULATING THE [place] WITH FAMILY. PHYSICAL THERAPY SIGNED OFF 1000 DR VALDEZ AT THE BEDSIDE, JACEK WALTER PULLED TEMPORY PACEMEKER WIRES AND REMOVED MIDLINE CHEST DRESSING.. PT TO REMAIN STILL IN BED X 30 MIN FAMILY REMAINS AT BEDSIDE REMAINS AT
--- NOTE | 2019-02-11 11:26 | NUR ---
1[address] CVL [address] DRESSING IN PLACE. CASE MANAGMENT IN TO SEE PT PRIOR TO DC 1125 JACEK IN DOING DC TEACHING TO PT AND FAMILY AT THE BEDSIDE..
--- NOTE | 2019-02-11 11:44 | MORECARE ---
CASE MANAGEMENT DISCHARGE SUMMARY PATIENT: JADIEL PATINO UNIT: [id number] ADM DATE: 02/02/19 AGE: 78 : 40 SEX: F [facility] AUTHOR: ISA,DOC PHYSICIAN: REFERRING PHYSICIAN: GEORGE VALDEZ MD DATE OF SERVICE: 02/11/19 Discharge Plan Patient Name: JADIEL PATINO Facility: [facility]:[place] : 1940 Planned Disposition: Home Anticipated Discharge Date: Discharge Date: Expected LOS: Initial Reviewer: [id number] Initial Review Date: 02/02/2019 Generated: 02/11/19 12:43 pm Comments DCP- Discharge Planning Updated by [email or web address]: Evelia Guillaume on 02/11/19 10:[address] Patient Name: JADIEL PATINO Encounter No: [id number] : 1940 Primary Insurance: [employer] CHOICE PPO MCR ADVANT Anticipated DC Date: Planned Disposition: Home External Planned Provider: : D/C DREW EXPLAINED AND SIGNED 02/11/19 @ 1125 DCP follow-up note: Patient and family in agreement with discharge plan. No changes to plan. Case management will follow and assist as needed. Evelia Guillaume DCP- Discharge Planning Updated by [email or web address]: Cher Balderas on 02/02/19 2:[address] CM MET WITH THE PATIENT IN HER ROOM. SHE WAS ADMITTED FOR [facility] FROM [facility] PREOPERATIVELY. ADMITTING MD- DR CALDWLEL PCP- DR Bryan [facility]ULLEN [facility] AND [facility] MAIL ORDER DME- NONE HAS GLASSES AND HEARING AIDES HOME HEALTH- COMMUNITY SERVICES - DENIES ANY SERVICES CM INTRODUCED SELF AND EXPLAINED MY ROLE. PATIENT GRANTED PERMISSION TO CONTINUE WITH ASSESSMENT. SHE WILL BE RETURNING HOME AT DISCHARGE. 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 SHE HAS A DAUGHTER, APARNA- [phone] SHE HAS A SON- IVELISSE- [phone] PATIENT IS INDEPENDENT IN HER CARE. DOES NOT FEEL SHE WILL REQUIRE SERVICES AT DISCHARGE. CM EXPLAINED CASE MANGEMENT IS AVAILABLE TO ASSIST WITH HOME HEALTH OR REHAB SERVICES IF NEEDED AT DISCHARGE. EXPLAINED CM WILL FOLLOW TO ASSIST APPROPRIATE. SHE WILL HAVE TRANSPORTATION TO HOME AT DISCHARGE. DCPIA - Discharge Planning Initial Assessment Updated by [email or web address]: Cher Balderas on 02/02/19 3:44 pm * Is the patient Alert and Oriented? Yes * How many steps to enter\exit or inside your home? none * PCP DR JED CULLEN * Pharmacy [facility] [place] [facility] * Preadmission Environment Home Alone * ADLs Independent * Equipment None * Other Equipment DENIES ANY DME * List name and contact numbers for known caregivers / representatives who currently or will assist patient after discharge: [place]- NEXT DOOR NEIGHBOR [phone] * Verbal permission to speak to the caregivers and representatives has been obtained from the patient. No * Community resources currently utilized None * Please name any agencies selected above. N/A * Additional services required to return to the preadmission environment? No * Can the patient safely return to the preadmission environment? Yes * Has this patient been hospitalized within the prior 30 days at any hospital? No Coverage Notice Reviewer: [id number] Rangle Guillaume Notice Issued Date-Time: 02/11/2019 11:33 Notice Type: IM Discharge Notice Notice Delivered To: Patient Relationship to Patient: Self Band Saw Filer Name: Delivery Method: HAND - Hand Delivered Karma Days: Prior Verbal Notification: Recipient Understood Notice: Yes Recipient Signature: Yes Med Rec Note Co-signed by Attending: Coverage Notice Comment: Last DP export: 02/02/19 2:59 pm Patient Name: JADIEL PATINO Page [phone] at 1143 All edits/amendments must be made on the electronic document DICTATION DATE: 02/11/19 1143 PNEUMATIC DRUM SANDER: JAYCE 02/11/19 1143 RPT#: [id number] DC DATE: STATUS: ADM IN [facility] [address] [place] [address] END OF REPORT
--- NOTE | 2019-02-11 13:40 | NUR ---
1544 PATIENT TO FRONT DOOR VIA WHEELCHAIR TO PVT CAR
--- NOTE | 2019-02-11 17:35 | MORECARE ---
CASE MANAGEMENT DISCHARGE SUMMARY PATIENT: JADIEL PATINO UNIT: [id number] ADM DATE: 02/02/19 AGE: 78 : 40 SEX: F [facility] AUTHOR: ISA,DOC PHYSICIAN: REFERRING PHYSICIAN: GEORGE VALDEZ MD DATE OF SERVICE: 02/11/19 Discharge Plan Patient Name: JADEIL PATINO Facility: [facility]:[place] : 1940 Planned Disposition: Home Anticipated Discharge Date: Discharge Date: 02/11/2019 Expected LOS: Initial Reviewer: [email or web address] Initial Review Date: 02/02/2019 Generated: 02/11/19 6:35 pm Comments DCP- Discharge Planning Updated by [id number]: Evelia Guillaume on 02/11/19 10:[address] Patient Name: JADIEL PATINO Encounter No: [id number] : 1940 Primary Insurance: [employer] CHOICE PPO MCR ADVANT Anticipated DC Date: Planned Disposition: Home External Planned Provider: : D/C DREW EXPLAINED AND SIGNED 02/11/19 @ 1125 DCP follow-up note: Patient and family in agreement with discharge plan. No changes to plan. Case management will follow and assist as needed. Evelia Guillaume DCP- Discharge Planning Updated by [email or web address]: Cher Balderas on 02/02/19 2:[address] CM MET WITH THE PATIENT IN HER ROOM. SHE WAS ADMITTED FOR [facility] FROM [facility]. ADMITTING MD- DR CALDWELL PCP- DR Bryan [facility] AND [facility] MAIL ORDER DME- NONE HAS GLASSES AND HEARING AIDES HOME HEALTH- COMMUNITY SERVICES - DENIES ANY SERVICES CM INTRODUCED SELF AND EXPLAINED MY ROLE. PATIENT GRANTED PERMISSION TO CONTINUE WITH ASSESSMENT. SHE WILL BE RETURNING HOME AT DISCHARGE. 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 SHE HAS A DAUGHTER, APARNA- [phone] SHE HAS A SON- IVELISSE- [phone] PATIENT IS INDEPENDENT IN HER CARE. DOES NOT FEEL SHE WILL REQUIRE SERVICES AT DISCHARGE. CM EXPLAINED CASE MANGEMENT IS AVAILABLE TO ASSIST WITH HOME HEALTH OR REHAB SERVICES IF NEEDED AT DISCHARGE. EXPLAINED CM WILL FOLLOW TO ASSIST APPROPRIATE. SHE WILL HAVE TRANSPORTATION TO HOME AT DISCHARGE. DCPIA - Discharge Planning Initial Assessment Updated by [id number]: Cher Sehrrie on 02/02/19 3:44 pm * Is the patient Alert and Oriented? Yes * How many steps to enter\exit or inside your home? none * PCP DR JED CULLEN * Pharmacy [facility] [place] [facility] * Preadmission Environment Home Alone * ADLs Independent * Equipment None * Other Equipment DENIES ANY DME * List name and contact numbers for known caregivers / representatives who currently or will assist patient after discharge: [place]- NEXT DOOR NEIGHBOR [phone] * Verbal permission to speak to the caregivers and representatives has been obtained from the patient. No * Community resources currently utilized None * Please name any agencies selected above. N/A * Additional services required to return to the preadmission environment? No * Can the patient safely return to the preadmission environment? Yes * Has this patient been hospitalized within the prior 30 days at any hospital? No Coverage Notice Reviewer: [id number] Rangel Guillaume Notice Issued Date-Time: 02/11/2019 11:33 Notice Type: IM Discharge Notice Notice Delivered To: Patient Relationship to Patient: Self Psychiatric Social Worker Supervisor Name: Delivery Method: HAND - Hand Delivered Karma Days: Prior Verbal Notification: Recipient Understood Notice: Yes Recipient Signature: Yes Med Rec Note Co-signed by Attending: Coverage Notice Comment: Last DP export: 02/11/19 10:43 a Patient Name: JADIEL PATINO Page 27795 at 1735 All edits/amendments must be made on the electronic document DICTATION DATE: 02/11/191734 LIAISON PLANNER: JAYCE 02/11/19 173 RPT#: [id number] DC DATE:02/11/19 STATUS: DIS IN [facility] [address] [place] [address] END OF REPORT
== END 2019-02-11 11:50 | disposition home or self-care (01) | DRG 235 ==
LOC: D.CVICU 09:50
PROVIDERS: Family Medicine; Thoracic Surgery (Cardiothoracic Vascular Surgery); ADMIT Internal Medicine Cardiovascular Disease; ATTEND Internal Medicine Cardiovascular Disease
PROC: 021209W Bypass Coronary Artery, Three Arteries from Aorta with Autologous Venous Tissue, Open Approach (ICD-10-PCS; 2019-02-04)
PROC: 06BP4ZZ Excision of Right Saphenous Vein, Percutaneous Endoscopic Approach (ICD-10-PCS; 2019-02-04)
PROC: 5A1221Z Performance of Cardiac Output, Continuous (ICD-10-PCS; 2019-02-04)
PROC: B24BZZ4 Ultrasonography of Heart with Aorta, Transesophageal (ICD-10-PCS; 2019-02-04)
PROC: 02100Z9 Bypass Coronary Artery, One Artery from Left Internal Mammary, Open Approach (ICD-10-PCS; principal; 2019-02-04 07:30)
DX: I25.10 Atherosclerotic heart disease of native coronary artery without angina pectoris (principal); J96.00 Acute respiratory failure, unspecified whether with hypoxia or hypercapnia; J98.11 Atelectasis; I10 Essential (primary) hypertension; H26.9 Unspecified cataract; E78.5 Hyperlipidemia, unspecified; Z87.891 Personal history of nicotine dependence; I48.91 Unspecified atrial fibrillation

== ENCOUNTER 2019-02-13 20:31 | Observation (INO) | payer MEDICARE ==
[~2019-02-13] VITALS: Ht 149.9 cm; Wt 50.9 kg
[~2019-02-13 20:31] MED LIST changes: +AMIODARONE HCL200 MG PO; +ASPIRIN EC81 M1 PO; +COLACE100 MG PO; +PERCOCET 5-3251 TAB PO
--- NOTE | 2019-02-13 20:38 | NUR ---
PT 2 DAYS POST OP BYPASS SURGERY DONE BY DR. OLSON.
[2019-02-13 20:45] VITALS: BP 156/91
[2019-02-13 21:29] LABS: BASOPHILS 0.2 % (0-2); EOSINOPHILS 2.6 % (0-7); HEMOGLOBIN 11.5 g/dL (12-16); IMMATURE GRANULOCYTES 0.2 % (0-5); LYMPHOCYTES 19.3 % (15-50); MCH 28.3 pg (26.0-34.0); MCHC 32.9 g/dL (31.0-37.0); MEAN PLATELET VOLUME 9.2 fL (7.4-10.4); MONOCYTES 8.6 % (2-11); NEUTROPHILS 69.1 % (40-80); RBC 4.07 10x6/uL (4.00-5.40); RDW 13.4 % (11.5-14.5); WBC 5.3 10x3/uL (4.8-10.8)
[2019-02-13 21:37] LABS: APTT 28.3 SECONDS (22.8-39.4); INR 1.13 (0.85-1.17)
[2019-02-13 21:44] LABS: ALBUMIN 3.2 g/dL (3.4-5.0); ALKALINE PHOSPHATASE 77 U/L (46-116); ALT (SGPT) 23 U/L (10-68); BILIRUBIN - TOTAL 0.33 mg/dL (0.2-1.3); CALC OSMOLALITY 273 mosm/kg (275-300); CALCIUM 8.7 mg/dL (8.5-10.1); CARBON DIOXIDE 28.1 mmol/L (21.0-32.0); CHLORIDE - SERUM 100 mmol/L (98-107); CREATININE - SERUM 0.9 mg/dL (0.6-1.3); POTASSIUM - SERUM 3.9 mmol/L (3.5-5.1); PROTEIN - SERUM 7.2 g/dL (6.4-8.2); SODIUM 137 mmol/L (136-145); UREA NITROGEN 11 mg/dL (7-18); eGFR NON AFRICAN AMERICAN 64 mL/min (90-120)
[2019-02-13 21:47] LABS: GLUCOSE 109 mg/dL (74-106); PLATELET COUNT 266 10x3/uL (130-400)
[2019-02-13 22:00] VITALS: BP 156/91
[2019-02-13 22:00] LABS: CKMB 0.8 U/L (0.0-3.6); CREATINE KINASE 33 UL (21-215); MAGNESIUM - SERUM 2.2 mg/dL (1.8-2.4); THYROID STIMULATING HORMONE 1.84 uIU/mL (0.36-3.74)
[2019-02-13 22:06] LABS: TROPONIN-I 0.088 ng/mL (0.000-0.060)
[2019-02-13 22:36] VITALS: BP 148/76
[2019-02-13 23:28] VITALS: BP 145/79; BMI 22.8
[2019-02-14 00:03] VITALS: BP 145/79
[2019-02-14 04:00] VITALS: BP 142/78
[2019-02-14 04:41] LABS: BASOPHILS 0.2 % (0-2); EOSINOPHILS 2.7 % (0-7); HEMATOCRIT 33.4 % (36.0-48.0); HEMOGLOBIN 10.9 g/dL (12-16); IMMATURE GRANULOCYTES 0.5 % (0-5); LYMPHOCYTES 27.5 % (15-50); MCH 27.9 pg (26.0-34.0); MCHC 32.6 g/dL (31.0-37.0); MCV 85.4 fL (80.0-100.0); MEAN PLATELET VOLUME 9.4 fL (7.4-10.4); MONOCYTES 11.3 % (2-11); NEUTROPHILS 57.8 % (40-80); PLATELET COUNT 252 10x3/uL (130-400); RBC 3.91 10x6/uL (4.00-5.40); RDW 13.6 % (11.5-14.5); WBC 4.1 10x3/uL (4.8-10.8)
[2019-02-14 05:12] LABS: ANION GAP 12.8 mmol/L (8-16); CALCIUM 8.4 mg/dL (8.5-10.1); CARBON DIOXIDE 26.8 mmol/L (21.0-32.0); CREATININE - SERUM 0.8 mg/dL (0.6-1.3); MAGNESIUM - SERUM 2.1 mg/dL (1.8-2.4); PHOSPHOROUS 3.6 mg/dL (2.5-4.9); POTASSIUM - SERUM 3.6 mmol/L (3.5-5.1)
[2019-02-14 05:21] LABS: TROPONIN-I 0.064 ng/mL (0.000-0.060)
--- NOTE | 2019-02-14 08:00 | NUR ---
PT ALERT AND ORIENTED X4 SITTING UP IN BED. PT HAND CHIEF ULTRASOUND TECHNOLOGIST EQUAL NO WEAKNESS NOTED. PT DUAGHTERCALLED TO CHECK IN. PT DENIES ANY PAIN OR NEEDS AT THIS TIME. STANDBY ASSISTED PT TO BATHROOM. PT STEADY OF GAIT. BED LOW CALL LIGH WITHIN REACH. WILL CONTINUE TO MONITOR.
[2019-02-14 09:37] VITALS: BP 157/86
[2019-02-14 09:56] VITALS: BMI 22.8
--- NOTE | 2019-02-14 10:25 | NUR ---
PT AMBULATORY DOESNT WANT TO WEAR SCDS.
--- NOTE | 2019-02-14 11:15 | NUR ---
PT COMPLAINS OF 8/10 PAIN IN LOWER MID BACK. PRN PAIN MEDICATION GIVEN. SEE NOV. BED LOW CALL LIGHT WITHIN REACH. WILL CONTINE TO MONITOR.
--- NOTE | 2019-02-14 11:50 | NUR ---
Rehab Note- Acute Inpatient Rehab prescreen order received. The patient has [employer] insurance and will require a PreAuth prior to an inpatient acute rehab stay. She has a pending Press Offbearer consult d/t increased Troponin, & also a PT & OT Eval- will need for the PreAuth process. Will continue to follow at this time. Thank you for this referral! Maria R Winters RN Clinical Liaison, [facility] Rehab
[2019-02-14 11:54] LABS: % SATURATION 12 % (15-55); IRON 27 ug/dl (35-150); TOTAL IRON BIND CAPACITY 215 ug/dl (260-445); UNSAT IRON BIND CAPACITY 188 ug/dl (150-375)
[2019-02-14 12:25] VITALS: BP 141/85
--- NOTE | 2019-02-14 15:05 | NUR ---
I have reviewed this patient and I concur with the Shift Assessment completed by the Licensed Practical Nurse today this shift.
[2019-02-14 15:13] LABS: CHOL - HDL RATIO 2.8 ratio (2.3-4.1); LDL-HDL RATIO 1.5 ratio (1.5-3.5)
--- NOTE | 2019-02-14 15:17 | NUR ---
JCARLOS CALLED DR. CULLEN STATING THAT NO DR HAS BEEN IN TO SEE THEM. PT ASKED FOR CHARGE NURSE. FALGUNI PAGED.
[2019-02-14 15:52] VITALS: Ht 149.9 cm; Wt 50.9 kg
--- NOTE | 2019-02-14 17:58 | NUR ---
PT HAD CDS ORDERED BY DR PALACIOS THROUGHT ER THIS AM. I WENT TO DO PT AT 1800. SHE REQUESTS TO CANCEL UNTIL SHE CAN TALK TO HER OWN DR WHEN SHE SEES HIM. SAID LENNY FROM DR OFFICE TOLD HER IT WAS NOT NEEDED. GCATES,RDMS
--- NOTE | 2019-02-14 19:06 | NUR ---
PT IN BED. AT BEDSIDE. PT DENIES NEEDS AT THIS TIME.
[2019-02-14 20:00] VITALS: BP 131/78
[2019-02-15] VITALS: BP 141/86
[2019-02-15 04:00] VITALS: BP 128/77
[2019-02-15 06:11] LABS: BASOPHILS 0.4 % (0-2); EOSINOPHILS 1.5 % (0-7); HEMATOCRIT 34.5 % (36.0-48.0); HEMOGLOBIN 11.2 g/dL (12-16); IMMATURE GRANULOCYTES 0.2 % (0-5); LYMPHOCYTES 24.4 % (15-50); MCHC 32.5 g/dL (31.0-37.0); MCV 86.3 fL (80.0-100.0); MEAN PLATELET VOLUME 9.3 fL (7.4-10.4); MONOCYTES 8.6 % (2-11); NEUTROPHILS 64.9 % (40-80); PLATELET COUNT 259 10x3/uL (130-400); RDW 13.7 % (11.5-14.5)
[2019-02-15 06:22] LABS: WBC 5.5 10x3/uL (4.8-10.8)
[2019-02-15 06:31] LABS: ALKALINE PHOSPHATASE 79 U/L (46-116); ALT (SGPT) 15 U/L (10-68); CALC OSMOLALITY 271 mosm/kg (275-300); CALCIUM 8.5 mg/dL (8.5-10.1); CARBON DIOXIDE 24.3 mmol/L (21.0-32.0); CHLORIDE - SERUM 101 mmol/L (98-107); CREATININE - SERUM 0.7 mg/dL (0.6-1.3); GLUCOSE 97 mg/dL (74-106); POTASSIUM - SERUM 3.5 mmol/L (3.5-5.1); PROTEIN - SERUM 6.7 g/dL (6.4-8.2); SODIUM 136 mmol/L (136-145); UREA NITROGEN 12 mg/dL (7-18); eGFR NON AFRICAN AMERICAN 86 mL/min (90-120)
[2019-02-15 07:46] VITALS: BP 145/93
--- NOTE | 2019-02-15 08:19 | NUR ---
PT SITTING UP IN BED ALERT AND ORIENTED. PT STATES SHE FEELS LIKE HER HEART IS RACING. CHECKED TELEMETRY 83 SINUS RYTHEM PER MANAGER DIALYSIS, JUDY. BP 165/93 RR-18 O2-95%. PT STATES SHE HAS HISTORY OF ANXIETY. PT STATES SHE FEELS PREESURE IN UPPER ABDOMINAL AREA. PT STATES, "MAYBE GAS?" BED LOW CALL LIGHT WITHIN REACH WILL CONTINUE TO MONITOR.
[2019-02-15] MEDS ORDERED: ELIQUIS2.5 MG PO (10:11)
[2019-02-15] MEDS ORDERED: LISINOPRIL10 MG PO (10:13)
[2019-02-15] MEDS ORDERED: LOPRESSOR25 MG PO (10:13)
[2019-02-15 11:33] VITALS: BP 116/70
[2019-02-16 06:12] LABS: FOLATE (FOLIC ACID) - SERUM 12.3 ng/mL (>3.0)
--- NOTE | 2019-02-18 08:26 | MORECARE ---
CASE MANAGEMENT DISCHARGE SUMMARY PATIENT: JADIEL PATINO UNIT: [id number] ADM DATE: 02/13/19 AGE: 78 : 40 SEX: F ROOM/BED: D.2111 AUTHOR: MARIA LUISA MOSS PHYSICIAN: REFERRING PHYSICIAN: BERENICE GOYAL MD DATE OF SERVICE: 02/18/19 Discharge Plan Patient Name: JADIEL PATINO Facility: [facility]:[place] : 1940 Planned Disposition: Home Anticipated Discharge Date: 02/15/19 Discharge Date: 02/15/2019 Expected LOS: 2 Initial Reviewer: [email or web address] Initial Review Date: 02/18/2019 Generated: 02/18/19 9:26 am Patient Name: JADIEL PATINO Page 35628 at 0826 All edits/amendments must be made on the electronic document DICTATION DATE: 02/18/19824 ASSISTANT OCEANOGRAPHER: JAYCE 02/18/1925 RPT#: [id number] DC DATE:02/15/19 STATUS: DIS IN [facility] [address] [facility] [place] [address] END OF REPORT
== END 2019-02-15 12:32 | disposition home or self-care (01) ==
LOC: D.ER 20:31 → D.M2 22:43 → OBSVTIME 22:43 → D.M2 22:43
PROVIDERS: Family Medicine; ADMIT Emergency Medicine; ATTEND Emergency Medicine
DX: G45.9 Transient cerebral ischemic attack, unspecified (principal); I10 Essential (primary) hypertension; I25.10 Atherosclerotic heart disease of native coronary artery without angina pectoris; D64.9 Anemia, unspecified; I48.0 Paroxysmal atrial fibrillation

== ENCOUNTER → 2019-02-18 13:47 | Outpatient (CLI) | payer MEDICARE ==
[2019-02-14 15:52] VITALS: BMI 22.8
[~2019-02-18 13:47] MED LIST changes: +ELIQUIS2.5 MG PO; +LISINOPRIL10 MG PO
== END | disposition home or self-care (01) ==
LOC: D.ECHO 13:30
PROVIDERS: ATTEND Thoracic Surgery (Cardiothoracic Vascular Surgery)
DX: R06.00 Dyspnea, unspecified (principal)

== ENCOUNTER → 2019-03-11 11:51 | Outpatient (CLI) | payer MEDICARE ==
[2019-02-14 15:52] VITALS: BMI 22.8
[2019-03-11 12:51] LABS: HEMOGLOBIN 13.4 g/dL (12-16); MCH 28.2 pg (26.0-34.0); MCHC 32.7 g/dL (31.0-37.0); MCV 86.1 fL (80.0-100.0); MEAN PLATELET VOLUME 9.6 fL (7.4-10.4); RBC 4.76 10x6/uL (4.00-5.40); RDW 14.2 % (11.5-14.5); WBC 4.7 10x3/uL (4.8-10.8)
[2019-03-11 13:00] LABS: ALBUMIN 3.8 g/dL (3.4-5.0); BILIRUBIN - TOTAL 0.32 mg/dL (0.2-1.3); CALCIUM 8.9 mg/dL (8.5-10.1); CARBON DIOXIDE 28.5 mmol/L (21.0-32.0); CREATININE - SERUM 0.8 mg/dL (0.6-1.3); POTASSIUM - SERUM 4.5 mmol/L (3.5-5.1); PROTEIN - SERUM 7.7 g/dL (6.4-8.2)
== END | disposition home or self-care (01) ==
LOC: D.RAD 11:51
PROVIDERS: ATTEND Family Medicine
DX: J90 Pleural effusion, not elsewhere classified (principal); D64.9 Anemia, unspecified

== ENCOUNTER 2020-05-03 08:28 | Emergency (ER) | payer MEDICARE ==
[~2020-05-03] VITALS: Ht 149.9 cm; Wt 52.3 kg
[2020-05-03 08:35] VITALS: Ht 149.9 cm; Wt 52.3 kg
[2020-05-03] MEDS ORDERED: ZANAFLEX4 MG PO (08:38)
[2020-05-03] MEDS ORDERED: MOBIC7.5 MG PO (09:56)
[2020-05-03] MEDS ORDERED: MEDROL DOSE PACK4 MG PO (09:56)
[2020-05-03] MEDS ORDERED: CYCLOBENZAPRINE10 MG PO (09:56)
[2020-05-03 10:16] VITALS: BP 155/74
== END 2020-05-03 10:20 | disposition home or self-care (01) ==
LOC: D.ER 08:28
DX: M54.42 Lumbago with sciatica, left side (principal); M48.00 Spinal stenosis, site unspecified; I10 Essential (primary) hypertension; M79.605 Pain in left leg; M54.9 Dorsalgia, unspecified

== ENCOUNTER 2021-02-01 06:46 | Inpatient (IN) | payer MEDICARE ==
[~2021-02-01] VITALS: Ht 149.9 cm; Wt 52.2 kg
[~2021-02-01 06:46] MED LIST changes: +CYCLOBENZAPRINE10 MG PO; +MEDROL DOSE PACK4 MG PO; +MOBIC7.5 MG PO; +ZANAFLEX4 MG PO
[2021-02-01 08:20] LABS: BASOPHILS 0.1 % (0-2); BILIRUBIN NEGATIVE (NEGATIVE); EOSINOPHILS 0.9 % (0-7); HEMATOCRIT 42.4 % (36.0-48.0); HEMOGLOBIN 13.7 g/dL (12-16); IMMATURE GRANULOCYTES 0.3 % (0-5); KETONE NEGATIVE (NEGATIVE); LYMPHOCYTE ABS# 0.87 10x3/uL (1.18-3.74); LYMPHOCYTES 11.3 % (15-50); MCH 27.5 pg (26.0-34.0); MCHC 32.3 g/dL (31.0-37.0); MCV 85.1 fL (80.0-100.0); MEAN PLATELET VOLUME 10.2 fL (7.4-10.4); MONOCYTES 4.8 % (2-11); NEUTROPHIL ABS# 6.36 10x3/uL (1.56-6.13); NEUTROPHILS 82.6 % (40-80); NITRITE NEGATIVE (NEGATIVE); PLATELET COUNT 209 10x3/uL (130-400); RBC 4.98 10x6/uL (4.00-5.40); RDW 13.4 % (11.5-14.5); UROBILINOGEN NORMAL mg/dL (< 2); WBC 7.7 10x3/uL (4.8-10.8)
[2021-02-01 08:22] LABS: BACTERIA FEW HPF (NONE SEEN); SQUAMOUS EPITHELIAL 0-5 HPF (0-4); WHITE CELLS - URINE 0-5 HPF (0-4)
[2021-02-01 08:35] LABS: CALC OSMOLALITY 276 mosm/kg (275-300); CALCIUM 9.2 mg/dL (8.5-10.1); CARBON DIOXIDE 27.5 mmol/L (21.0-32.0); CHLORIDE - SERUM 100 mmol/L (98-107); CREATININE - SERUM 0.8 mg/dL (0.6-1.3); GLUCOSE 119 mg/dL (74-106); POTASSIUM - SERUM 3.8 mmol/L (3.5-5.1); SODIUM 136 mmol/L (136-145); UREA NITROGEN 23 mg/dL (7-18); eGFR NON AFRICAN AMERICAN 73 mL/min (90-120)
[2021-02-01 08:42] LABS: ALBUMIN 3.8 g/dL (3.4-5.0); ALKALINE PHOSPHATASE 96 U/L (30-120); ALT (SGPT) 18 U/L (10-68); BILIRUBIN - TOTAL 0.67 mg/dL (0.2-1.3); PROTEIN - SERUM 7.4 g/dL (6.4-8.2)
[2021-02-01 08:45] LABS: TROPONIN-I < 0.017 ng/mL (0.000-0.060)
[2021-02-01 09:12] LABS: AMYLASE - SERUM 3073 U/L (25-115)
[2021-02-01 09:14] LABS: LIPASE 12694 U/L (73-393)
[2021-02-01 11:40] VITALS: BP 133/76; BMI 23.2
[2021-02-01 13:12] LABS: CHOL - HDL RATIO 2.9 ratio (2.3-4.1); LDL-HDL RATIO 1.8 ratio (1.5-3.5)
[2021-02-01 18:22] VITALS: BP 133/81
[2021-02-01 20:00] VITALS: BP 135/78
[2021-02-02 04:00] VITALS: BP 119/66
[2021-02-02 06:36] LABS: BASOPHILS 0.1 % (0-2); EOSINOPHILS 1.9 % (0-7); HEMOGLOBIN 11.9 g/dL (12-16); IMMATURE GRANULOCYTES 0.1 % (0-5); LYMPHOCYTE ABS# 1.32 10x3/uL (1.18-3.74); LYMPHOCYTES 13.9 % (15-50); MCH 27.5 pg (26.0-34.0); MCHC 32.2 g/dL (31.0-37.0); MCV 85.6 fL (80.0-100.0); MEAN PLATELET VOLUME 10.5 fL (7.4-10.4); MONOCYTES 5.6 % (2-11); NEUTROPHIL ABS# 7.42 10x3/uL (1.56-6.13); NEUTROPHILS 78.4 % (40-80); PLATELET COUNT 175 10x3/uL (130-400); RBC 4.32 10x6/uL (4.00-5.40); RDW 13.6 % (11.5-14.5); WBC 9.5 10x3/uL (4.8-10.8)
[2021-02-02 07:18] LABS: ALBUMIN 2.9 g/dL (3.4-5.0); ALKALINE PHOSPHATASE 73 U/L (30-120); CALCIUM 8.2 mg/dL (8.5-10.1); CARBON DIOXIDE 23.6 mmol/L (21.0-32.0); CHLORIDE - SERUM 106 mmol/L (98-107); CREATININE - SERUM 0.6 mg/dL (0.6-1.3); GLUCOSE 98 mg/dL (74-106); POTASSIUM - SERUM 3.6 mmol/L (3.5-5.1); PROTEIN - SERUM 6.2 g/dL (6.4-8.2); SODIUM 140 mmol/L (136-145); eGFR NON AFRICAN AMERICAN > 90 mL/min (90-120)
[2021-02-02 07:20] LABS: ALT (SGPT) 13 U/L (10-68); CALC OSMOLALITY 280 mosm/kg (275-300); LIPASE 1088 U/L (73-393); UREA NITROGEN 17 mg/dL (7-18)
[2021-02-02 07:21] LABS: AMYLASE - SERUM 685 U/L (25-115)
[2021-02-02 08:17] VITALS: BP 113/63
[2021-02-02 12:48] VITALS: BP 128/69
[2021-02-02 13:11] VITALS: BMI 23.2
--- NOTE | 2021-02-02 13:57 | NUR ---
PATIENT WALKED 250 FEET INDEPENDENTLY IN [place] WITHOUT ASST DEVICE.
[2021-02-02 17:22] VITALS: BP 140/75
[2021-02-02 20:23] VITALS: BP 141/74
[2021-02-03] VITALS: BP 125/70
[2021-02-03 04:00] VITALS: BP 125/65
--- NOTE | 2021-02-03 06:10 | NUR ---
ASSUMED CARE OF PT AFTER REPORT/ROUNDS. PT REMAINS A&OX4. PT DID VERBALIZE THIS AM THAT SHE HAS HOLDED OFF ON TAKING PAIN MEDICATION STATING SHE WAS HOPING TO GO HOME. PT TEACHING AND THERAPEUTIC COMMUNICATION DONE REGARDING PAIN MANAGEMENT AND HEALING PROCESS. PAIN MEDS WERE GIVEN AND EFFECTIVE FOR MANAGING SAME.
[2021-02-03 06:39] LABS: BASOPHILS 0.2 % (0-2); EOSINOPHILS 1.8 % (0-7); HEMATOCRIT 34.2 % (36.0-48.0); HEMOGLOBIN 10.8 g/dL (12-16); IMMATURE GRANULOCYTES 0.2 % (0-5); LYMPHOCYTE ABS# 1.15 10x3/uL (1.18-3.74); LYMPHOCYTES 12.3 % (15-50); MCH 27.6 pg (26.0-34.0); MCHC 31.6 g/dL (31.0-37.0); MCV 87.2 fL (80.0-100.0); MEAN PLATELET VOLUME 10.5 fL (7.4-10.4); MONOCYTES 6.3 % (2-11); NEUTROPHIL ABS# 7.37 10x3/uL (1.56-6.13); NEUTROPHILS 79.2 % (40-80); PLATELET COUNT 157 10x3/uL (130-400); RBC 3.92 10x6/uL (4.00-5.40); RDW 13.9 % (11.5-14.5); WBC 9.3 10x3/uL (4.8-10.8)
[2021-02-03 07:09] LABS: ALBUMIN 2.7 g/dL (3.4-5.0); ALKALINE PHOSPHATASE 69 U/L (30-120); ALT (SGPT) 13 U/L (10-68); BILIRUBIN - TOTAL 0.69 mg/dL (0.2-1.3); CALC OSMOLALITY 274 mosm/kg (275-300); CALCIUM 8.1 mg/dL (8.5-10.1); CARBON DIOXIDE 24.5 mmol/L (21.0-32.0); CHLORIDE - SERUM 105 mmol/L (98-107); CREATININE - SERUM 0.6 mg/dL (0.6-1.3); GLUCOSE 96 mg/dL (74-106); POTASSIUM - SERUM 3.3 mmol/L (3.5-5.1); PROTEIN - SERUM 6.1 g/dL (6.4-8.2); SODIUM 138 mmol/L (136-145); eGFR NON AFRICAN AMERICAN > 90 mL/min (90-120)
[2021-02-03 07:10] LABS: AMYLASE - SERUM 189 U/L (25-115); LIPASE 166 U/L (73-393); UREA NITROGEN 11 mg/dL (7-18)
[2021-02-03 08:00] VITALS: BP 124/65
--- NOTE | 2021-02-03 08:40 | NUR ---
PATIENT IN BED WITH IV INTACT. NO COMPLAINTS OR SIGNS OF DISTRESS. CALL LIGHT WITHIN REACH.
[2021-02-03 09:10] LABS: INR 1.36 (0.85-1.17); PROTIME 15.5 SECONDS (11.6-15.0)
--- NOTE | 2021-02-03 09:50 | NUR ---
NOTIFIED NURSE GALLO THAT PT WOULD BE PUT ON TOMORROW SCHEDULE FOR LUNG BX. UNABLE TO DO TODAY BECAUSE OF ASPIRIN AND ELIQUIS RECENTLY. DR ACEVEDO OK'D GIVING MORNING DOSE OF LOVENOX, BUT TO HOLD NIGHT AND 5/6 AM DOSE. ALSO STATED THAT PT COULD EAT/DRINK UNTIL MIDNIGHT FAR OUR CONCERN BUT WOULD NEED TO CLARIFY WITH PRIMARY CARE. NURSE GALLO VERBALIZED UNDERSTANDING.
--- NOTE | 2021-02-03 13:30 | NUR ---
PATIENT IV REMOVED WITH CATH TIP INTACT DUE TO LEAKING. RESTARTED IN RIGHT HAND X 2 STICKS. PATIENT TOLERATED WITH SMALL AMOUNT OF PAIN. CALL LIGHT WITHIN REACH.
--- NOTE | 2021-02-03 16:10 | NUR ---
PATIENT COMPLAINING OF GAS PAIN. HAS BEEN UP AMBULATING IN ROOM AND HAD A SHOWER TODAY. HAS BEEN MOVING AROUND A LOT TODAY. SPOKE WITH CHYNA VELASQUEZ AND EXPLAINED THAT SHE IS COMPLAINING OF GAS PAINS. STATED SHE WOULD PUT IN AN ORDER.
--- NOTE | 2021-02-03 16:30 | NUR ---
GAVE PATIENT SIMETHICONE FOR GAS PAIN. CALL LIGHT WITHIN REACH.
--- NOTE | 2021-02-03 18:00 | NUR ---
PATIENT STATED HER STOMACH ISNT FEELING MUCH BETTER BUT SHE WAS ABLE TO EAT MORE TONIGHT. GAVE HER A CAN OF PRUNE JUICE REQUESTED. ALSO EXPLAINED THAT SHE CAN GET UP AND WALK IN HALLWAY IF SHE WANTS. STATED SHE WOULD AFTER HER IV ABX ARE DONE SO SHE CAN BE SALINED LOCKED.
[2021-02-03 20:00] VITALS: BP 160/87
[2021-02-04] VITALS (13 sets, daily range): BP systolic 110–185; BP diastolic 64–99
--- NOTE | 2021-02-04 00:51 | NUR ---
PT UP WALKING AROUND ROOM. PT COMPLAINED OF DISCOMFORT IN STOMACH. NO OTHER COMPLAINTS AT THIS TIME. PT TAKES GASX FOR RELIEF. ABLE TO MAKE AND WANTS KNOWN CLEARLY. ALERT AND ORIENTED. NPO AT THIS TIME. BED IN LOW POSITION WITH CALL LIGHT IN REACH.
[2021-02-04 06:19] LABS: BASOPHILS 0.1 % (0-2); EOSINOPHILS 2.2 % (0-7); HEMOGLOBIN 9.9 g/dL (12-16); IMMATURE GRANULOCYTES 0.1 % (0-5); LYMPHOCYTE ABS# 1.36 10x3/uL (1.18-3.74); LYMPHOCYTES 17.4 % (15-50); MCH 27.5 pg (26.0-34.0); MCHC 31.9 g/dL (31.0-37.0); MCV 86.1 fL (80.0-100.0); MEAN PLATELET VOLUME 10.4 fL (7.4-10.4); MONOCYTES 6.3 % (2-11); NEUTROPHIL ABS# 5.76 10x3/uL (1.56-6.13); NEUTROPHILS 73.9 % (40-80); PLATELET COUNT 148 10x3/uL (130-400); RDW 13.5 % (11.5-14.5); WBC 7.8 10x3/uL (4.8-10.8)
[2021-02-04 06:47] LABS: ALBUMIN 2.5 g/dL (3.4-5.0); ALKALINE PHOSPHATASE 77 U/L (30-120); ALT (SGPT) 18 U/L (10-68); AMYLASE - SERUM 85 U/L (25-115); APTT 37.4 SECONDS (22.8-39.4); BILIRUBIN - TOTAL 0.66 mg/dL (0.2-1.3); CALC OSMOLALITY 275 mosm/kg (275-300); CHLORIDE - SERUM 105 mmol/L (98-107); CREATININE - SERUM 0.5 mg/dL (0.6-1.3); GLUCOSE 97 mg/dL (74-106); INR 1.43 (0.85-1.17); LIPASE 103 U/L (73-393); POTASSIUM - SERUM 3.5 mmol/L (3.5-5.1); PROTEIN - SERUM 5.6 g/dL (6.4-8.2); PROTIME 16.2 SECONDS (11.6-15.0); SODIUM 139 mmol/L (136-145); UREA NITROGEN 7 mg/dL (7-18); eGFR NON AFRICAN AMERICAN > 90 mL/min (90-120)
--- NOTE | 2021-02-04 08:00 | NUR ---
ASSESSMENT PER FLOW SHEET. PATIENT IS WITHOUT DISTRESS.MONITOR FOR NEEDS. NPO FOR POSS PROCEDURE.
--- NOTE | 2021-02-04 09:30 | NUR ---
Nutrition follow-up: Pt currently NPO for TF guided lung biopsy today PO intake of full liquid diet 92% x 2 meals Labs reviewed Wt: 114# RDN will monitor patients diet advancement and tolerance Reassessment: 02/08/21
--- NOTE | 2021-02-04 10:25 | NUR ---
TO IR VIA BED
--- NOTE | 2021-02-04 13:55 | NUR ---
hold for surg
--- NOTE | 2021-02-04 14:55 | NUR ---
PATIENT HAS BEEN UP MULTIPLE TIMES AFTER BX. SHE KEEPS UNHOOKING VITAL SIGN MACHINE AND PULLING HER SIMPLE MASK OFF. O2 AT 40% PER RT. VSS, SEE GRAPHICS.
--- NOTE | 2021-02-04 15:14 | NUR ---
CALL TO FAMILY TO INFORM THEM OF NEEDED CHEST TUBE PLACEMENT. MESSAGE LEFT FOR HARLEEN TO CALL OUR UNIT.
--- NOTE | 2021-02-04 15:51 | NUR ---
UPDATE GIVEN TO HARLEEN CAICEDO PATIENTS DAUGHTER [phone]. PATIENT AGREES FOR ME TO UPDATE HER DAUGHTER AND WANTS TO KEEP HER INFORMED OF PATIENTS CAREPLAN. PASSWORD TO DAUGHTER FROM PATIENT [id number].
--- NOTE | 2021-02-04 15:57 | NUR ---
PATIENT WENT TO IR VIA BED
[2021-02-05] VITALS: BP 110/65
--- NOTE | 2021-02-05 04:33 | NUR ---
PT WAS ON THE EDGE OF THE BED CRYING AND HAVING SOME ANXIETY. PT REQUEST STRONGER MED FOR PAIN AND IS COMPLAINING OF MED GIVEN NOT WORKING AT ALL. PT STATED MD INFORMED HER NURSE PRACTITIONER WAS COMING TO VISIT HER TO GIVE HER MORPHINE IV, NO INFORMATION WAS GIVEN IN BEDSIDE REPORT. PT CONSTANTLY WAS ATTEMPTING TO GET UP AND WAS RESTLESS THRU THE NIGHT. FALGUNI APPROVED HIGHER DOSE OF PAIN MED TO BE GIVEN, VITALS STABLE AND PT STATES IS FEELING MUCH BETTER. WILL CONT TO MONITOR.
[2021-02-05 07:08] LABS: BASOPHILS 0.1 % (0-2); EOSINOPHILS 1.3 % (0-7); HEMOGLOBIN 10.5 g/dL (12-16); IMMATURE GRANULOCYTES 0.1 % (0-5); LYMPHOCYTES 9.4 % (15-50); MCH 27.3 pg (26.0-34.0); MCHC 31.8 g/dL (31.0-37.0); MCV 85.9 fL (80.0-100.0); MEAN PLATELET VOLUME 10.5 fL (7.4-10.4); MONOCYTES 6.7 % (2-11); NEUTROPHIL ABS# 6.14 10x3/uL (1.56-6.13); NEUTROPHILS 82.4 % (40-80); PLATELET COUNT 175 10x3/uL (130-400); RBC 3.84 10x6/uL (4.00-5.40); RDW 13.4 % (11.5-14.5); WBC 7.5 10x3/uL (4.8-10.8)
[2021-02-05 07:25] LABS: ALBUMIN 2.7 g/dL (3.4-5.0); ALKALINE PHOSPHATASE 76 U/L (30-120); ALT (SGPT) 18 U/L (10-68); BILIRUBIN - TOTAL 0.67 mg/dL (0.2-1.3); CALC OSMOLALITY 272 mosm/kg (275-300); CALCIUM 8.4 mg/dL (8.5-10.1); CARBON DIOXIDE 24.9 mmol/L (21.0-32.0); CHLORIDE - SERUM 102 mmol/L (98-107); CREATININE - SERUM 0.6 mg/dL (0.6-1.3); GLUCOSE 98 mg/dL (74-106); POTASSIUM - SERUM 3.1 mmol/L (3.5-5.1); PROTEIN - SERUM 6.4 g/dL (6.4-8.2); SODIUM 137 mmol/L (136-145); eGFR NON AFRICAN AMERICAN > 90 mL/min (90-120)
[2021-02-05 07:29] LABS: UREA NITROGEN 9 mg/dL (7-18)
[2021-02-05 09:31] VITALS: BP 130/86
[2021-02-05 13:19] VITALS: BP 151/82
[2021-02-05 17:25] VITALS: BP 138/60
--- NOTE | 2021-02-06 02:27 | NUR ---
PT WAS UP STANDING NEXT TO BED SHE WAS VERY ANXIOUS AND WAS HELPED TO SIT IN THE CHAIR IN HER ROOM, DOMINIQUE ALARM SET. PT HAS BEEN MONITORED AND INSTRUCTED TO USE CALL LIGHT IF ANYTHING IS NEEDED AND NOT TO STAND ON HER OWN SHE IS ON PAIN MEDICATION AND IS DROWSY. WILL CONT TO MONITOR.
--- NOTE | 2021-02-06 03:08 | NUR ---
I have reviewed this patient and I concur with the Shift Assessment completed by the Licensed Practical Nurse today this shift.
[2021-02-06 05:54] LABS: BASOPHILS 0.2 % (0-2); EOSINOPHILS 3.6 % (0-7); HEMATOCRIT 31.6 % (36.0-48.0); HEMOGLOBIN 10.5 g/dL (12-16); IMMATURE GRANULOCYTES 0.4 % (0-5); LYMPHOCYTE ABS# 0.83 10x3/uL (1.18-3.74); LYMPHOCYTES 15.6 % (15-50); MCH 28.7 pg (26.0-34.0); MCHC 33.2 g/dL (31.0-37.0); MCV 86.3 fL (80.0-100.0); MEAN PLATELET VOLUME 10.4 fL (7.4-10.4); MONOCYTES 12.4 % (2-11); NEUTROPHIL ABS# 3.62 10x3/uL (1.56-6.13); NEUTROPHILS 67.8 % (40-80); PLATELET COUNT 173 10x3/uL (130-400); RBC 3.66 10x6/uL (4.00-5.40); RDW 13.2 % (11.5-14.5)
[2021-02-06 06:01] LABS: WBC 5.3 10x3/uL (4.8-10.8)
[2021-02-06 06:24] VITALS: BP 120/80
[2021-02-06 06:33] LABS: ALBUMIN 2.4 g/dL (3.4-5.0); ALKALINE PHOSPHATASE 74 U/L (30-120); ALT (SGPT) 16 U/L (10-68); BILIRUBIN - TOTAL 0.51 mg/dL (0.2-1.3); CALC OSMOLALITY 271 mosm/kg (275-300); CALCIUM 8.3 mg/dL (8.5-10.1); CARBON DIOXIDE 26.6 mmol/L (21.0-32.0); CHLORIDE - SERUM 103 mmol/L (98-107); CREATININE - SERUM 0.5 mg/dL (0.6-1.3); GLUCOSE 94 mg/dL (74-106); POTASSIUM - SERUM 3.3 mmol/L (3.5-5.1); PROTEIN - SERUM 6.2 g/dL (6.4-8.2); SODIUM 137 mmol/L (136-145); UREA NITROGEN 7 mg/dL (7-18); eGFR NON AFRICAN AMERICAN > 90 mL/min (90-120)
[2021-02-06 08:22] VITALS: BP 152/102
--- NOTE | 2021-02-06 09:09 | NUR ---
PT VERY INSECURE ABOUT HER CARE, TEARFUL, IV INFUSING, STATES THAT SHE HAS NO ADVOCATE
[2021-02-06 12:20] VITALS: BP 154/75
--- NOTE | 2021-02-06 16:37 | NUR ---
TAKEN TO MRI PER W/C, KHLOE WELL
--- NOTE | 2021-02-06 20:10 | NUR ---
STANDING AT BEDSIDE. NO DISTRESS NOTED. O2 @ 4L PER NC ON. CHEST TUBE PATENT TO LEFT CHEST WITH DRESSING DRY/INTACT.ASSIST BACK TO BED.SET UP TABLE FOR ORAL CARE PER REQUEST.CL IN REACH
--- NOTE | 2021-02-07 00:13 | NUR ---
I have reviewed this patient and I concur with the Shift Assessment completed by the Licensed Practical Nurse today this shift.
[2021-02-07 00:40] VITALS: BP 130/70
[2021-02-07 07:54] LABS: BASOPHILS 0.2 % (0-2); EOSINOPHILS 5.8 % (0-7); HEMATOCRIT 32.8 % (36.0-48.0); HEMOGLOBIN 10.5 g/dL (12-16); IMMATURE GRANULOCYTES 0.2 % (0-5); LYMPHOCYTE ABS# 0.86 10x3/uL (1.18-3.74); LYMPHOCYTES 18.5 % (15-50); MCH 27.5 pg (26.0-34.0); MCV 85.9 fL (80.0-100.0); MEAN PLATELET VOLUME 10.4 fL (7.4-10.4); MONOCYTES 10.1 % (2-11); NEUTROPHIL ABS# 3.03 10x3/uL (1.56-6.13); NEUTROPHILS 65.2 % (40-80); PLATELET COUNT 192 10x3/uL (130-400); RBC 3.82 10x6/uL (4.00-5.40); RDW 13.2 % (11.5-14.5); WBC 4.7 10x3/uL (4.8-10.8)
[2021-02-07 08:14] VITALS: BP 166/106
[2021-02-07 08:24] LABS: ALBUMIN 2.3 g/dL (3.4-5.0); ALKALINE PHOSPHATASE 69 U/L (30-120); ALT (SGPT) 18 U/L (10-68); BILIRUBIN - TOTAL 0.32 mg/dL (0.2-1.3); CALC OSMOLALITY 276 mosm/kg (275-300); CALCIUM 8.1 mg/dL (8.5-10.1); CHLORIDE - SERUM 103 mmol/L (98-107); CREATININE - SERUM 0.6 mg/dL (0.6-1.3); GLUCOSE 98 mg/dL (74-106); POTASSIUM - SERUM 3.9 mmol/L (3.5-5.1); PROTEIN - SERUM 5.7 g/dL (6.4-8.2); SODIUM 139 mmol/L (136-145); UREA NITROGEN 10 mg/dL (7-18); eGFR NON AFRICAN AMERICAN > 90 mL/min (90-120)
--- NOTE | 2021-02-07 09:57 | NUR ---
RESTING IN BED, NO DISTRESS NOTED, IV INFUSING PER RFA, CONT TO MONITOR PAIN
--- NOTE | 2021-02-07 10:21 | NUR ---
PATIENT ABLE TO GET UP TO BEDSIDE AND STAND BY HERSELF. PATIENT WALKED IN [place] 130 FEET WITH MIN ASST WHILE HOLDING ON TO THERAPIST.
[2021-02-07 13:42] VITALS: BP 152/80
[2021-02-07 16:35] VITALS: BP 142/74
--- NOTE | 2021-02-07 16:38 | NUR ---
ATTEMPTED MRI CERVICAL WITH AND WITHOUT CONTRAST. NURSE ALFORD ACCOMPANIED MARINE PIPEFITTER HELPER AND PATIENT BECAUSE PATIENT HAD A CHEST TUBE. PATIENT WAS PRE-MEDICATED. RIGHT AFTER STARTING MRI SCAN, PATIENT STATED SHE WANTED OUT OF THE MRI SCANNER AND STATED THAT SHE DID NOT UNDERSTAND WHY HER DR ORDER ANOTHER MRI INSTEAD OF JUST GETTING THE PET SCAN. TRIED TO EXPLAIN TO PATIENT THAT THE MRI IMAGES WERE DIFFERENT, BUT PATIENT INSISTED THAT SHE DID NOT WANT THE MRI.
--- NOTE | 2021-02-07 16:53 | NUR ---
TAKEN TO MRI AFTER MEDICATING WITH ATIVAN 1MG IV, PT STARTED BUT REFUSED TO COMPLETE MRI, STATES IM THE PT AND I HAVE THE RIGHT TO REFUSE, PAGED DR NUNEZ TO NOTIFY
--- NOTE | 2021-02-07 20:44 | NUR ---
PT C/O SEVERE SOB AND IV WAS LEAKING ON REPORT/ROUNDS. IV RESITED TO LFA WITH 22G. PT'S CT WAS CHANGED TO LOW INTERMITTENT SUCTION AND KIKI MONTES DE OCA NOTIFIED WELL WITH NEW ORDERS REC'D FROM BOTH PROVIDERS, PLEASE REFER TO JACQUELINE RE:SAME. PT IS RESTING IN BED.
--- NOTE | 2021-02-08 06:25 | NUR ---
PT WAS VERY WEEPY LAST NIGHT ON AND OFF. THERAPEUTIC COMMUNICATION DONE. PT DID TAKE PRN MS/XANAX WITH GOOD EFFECT. PT BREATHING DID BECOME LESS DIFFICULT WHEN CALMED AND PT REQUESTED TO HAVE THE NASAL CANULA REPLACED FOR THE MASK. THIS NURSE DID DO EDUCATION AND PT STILL INSISTED STATING SHE COULDN'T SLEEP WITH THE MASK. RESP THERAPY NOTIFIED AND SAME DONE. PT HAS SLEPT WELL AFTER CALMING AND DYSPNEA RESOLVED. UTILIZING CALL LIGHT TO REQUEST ASSIST. IN BED RESTING AT THIS TIME.
[2021-02-08 06:51] LABS: BASOPHILS 0.2 % (0-2); EOSINOPHILS 5.6 % (0-7); HEMATOCRIT 32.7 % (36.0-48.0); HEMOGLOBIN 10.4 g/dL (12-16); IMMATURE GRANULOCYTES 0.2 % (0-5); LYMPHOCYTES 19.4 % (15-50); MCH 27.1 pg (26.0-34.0); MCHC 31.8 g/dL (31.0-37.0); MCV 85.2 fL (80.0-100.0); MEAN PLATELET VOLUME 10.3 fL (7.4-10.4); MONOCYTES 8.3 % (2-11); NEUTROPHIL ABS# 3.41 10x3/uL (1.56-6.13); NEUTROPHILS 66.3 % (40-80); RBC 3.84 10x6/uL (4.00-5.40); RDW 13.2 % (11.5-14.5); WBC 5.2 10x3/uL (4.8-10.8)
[2021-02-08 06:57] LABS: PLATELET COUNT 236 10x3/uL (130-400)
[2021-02-08 07:15] LABS: ALBUMIN 2.5 g/dL (3.4-5.0); ALKALINE PHOSPHATASE 73 U/L (30-120); ALT (SGPT) 16 U/L (10-68); BILIRUBIN - TOTAL 0.35 mg/dL (0.2-1.3); CALC OSMOLALITY 273 mosm/kg (275-300); CALCIUM 8.6 mg/dL (8.5-10.1); CARBON DIOXIDE 29.5 mmol/L (21.0-32.0); CHLORIDE - SERUM 102 mmol/L (98-107); CREATININE - SERUM 0.7 mg/dL (0.6-1.3); GLUCOSE 106 mg/dL (74-106); POTASSIUM - SERUM 3.4 mmol/L (3.5-5.1); PROTEIN - SERUM 6.6 g/dL (6.4-8.2); SODIUM 138 mmol/L (136-145); UREA NITROGEN 7 mg/dL (7-18); eGFR NON AFRICAN AMERICAN 85 mL/min (90-120)
--- NOTE | 2021-02-08 07:43 | NUR ---
patient k+ is 3.4, will administer kdur with morning medications. continue with plan of care
--- NOTE | 2021-02-08 09:06 | NUR ---
PATIENT SPEAKING WITH IR JOSE ANGEL HARP, SHE IS UPSET THAT DR NUNEZ CAME IN THIS MORNING AND TOLD HER SHE HAD STAGE 1 CANCER WHEN PATIENT THOUGHT PATHOLOGY WAS NOT BACK YET, WANTED TO KNOW IF DOCTOR WAS JUMPING THE GUN. EXPLAINED TO PATIENT THAT WE UNDERSTOOD HER FRUSTRATIONS AND CONCERN BUT ARE TAKING PRECAUTIONS AND GIVING THE BEST CARE WE CAN WITH INFORMATION WE HAVE. EDUCATED AND ENCOURAGED PATIENT TO GET BACK IN BED THE SAME WAY SHE GOT OUT OF BED TO AVOID KINKING CHEST TUBE. NO OTHER NEEDS AT THIS TIME. CONTINUE WITH PLAN OF CARE. ADMINISTERED PRN MEDICATIONS WELL SCHEDULED
[2021-02-08 10:02] VITALS: BP 143/84
[2021-02-08 14:07] VITALS: BP 110/71
--- NOTE | 2021-02-08 14:30 | NUR ---
Nutrition reassessment: Diet order: Regular PO Intake ~25% of some meals due to pt with increased SOB. Labs reviewed CT in place Wt: 115# +BM Estimated needs based on actual BW: 1263-9737 kcal (25-35 kcal/kg) 52-68 gm protein ( 1.0-1.3 mg/kg) 0984-7242 ml fluid or per MD Nutrition diagnosis: Inadequate oral intake R/T SOB AEB noted po intake < 75% of meals at this time due to worsening SOB. Nutrition goals: - PO intake =/> 75% of meals, snacks - Meet est fluid needs - Stable wt Interventions: Will continue to provide food choices with selective menus and honor food preferences. Recommendations: If po intake remains poor, start an appetite stimulant. Also recommend ProcalAmine PPN @ 50 ml/hr for short-term nutrition support. RDN follow-up: 02/11/21
--- NOTE | 2021-02-08 14:45 | NUR ---
IV IN LEFT ARM IS RED AND SWOLLEN AT SITE, DC IV WITH CATHETER INTACT, PATIENT REQUEST TO DELAY RESITING IV AT THIS TIME. NO OTHER ENEDS VOICED, CONTINUE WITH PLAN OF CARE
[2021-02-08 15:58] VITALS: Ht 149.9 cm; Wt 52.2 kg
--- NOTE | 2021-02-08 18:58 | NUR ---
I have reviewed this patient and I concur with the Shift Assessment completed by the Licensed Practical Nurse today this shift.
[2021-02-08 18:59] VITALS: BP 110/79
--- NOTE | 2021-02-08 19:18 | NUR ---
ASSUMED CARE OF PT AFTER REPORT/ROUNDS. PT REMAINS A&OX4 AND VERBALIZES WANTS/NEEDS CLEARLY AND WITHOUT DIFFICULTY. PT VERBALIZED FAMILY WILL BE HERE TOMORROW. PT ALSO VERBALIZED NOT BEING EXCITED TO SEE DAUGHTER. REASSURANCE PROVIDED TO PT. PT ALSO REQUEST XANAX AGAIN FOR HS. PT SITTING AT BEDSIDE DRINKING FLUIDS.
[2021-02-08 20:00] VITALS: BP 122/61
--- NOTE | 2021-02-09 03:13 | NUR ---
PT C/O CHEST PAIN/DISCOMFORT HORIZONTALLY ACROSS MID CHEST AREA. LS REMAIN UNCHANGED AND HR UNCHANGED TO AUSCULTATION. VSS. EKG OBTAINED AND PROVIDER O/C NOTIFIED WITH PRIOR EKG AND CURRENT REVIEWED. NEW ORDER FOR TELE AND CARDIAC ENZYMES. PT STATED CHEST PAIN LASTED [address] IS INSITU AND FUNCTIONING APPROPRIATELY. PT VERBALIZED PAIN HAD DISIPATED DURING ASSESSMENT.
[2021-02-09 04:00] VITALS: BP 142/80
[2021-02-09 04:08] LABS: BASOPHILS 0.4 % (0-2); EOSINOPHILS 8.4 % (0-7); HEMATOCRIT 32.9 % (36.0-48.0); HEMOGLOBIN 10.5 g/dL (12-16); IMMATURE GRANULOCYTES 0.2 % (0-5); LYMPHOCYTE ABS# 1.14 10x3/uL (1.18-3.74); LYMPHOCYTES 24.4 % (15-50); MCH 27.4 pg (26.0-34.0); MCHC 31.9 g/dL (31.0-37.0); MCV 85.9 fL (80.0-100.0); MEAN PLATELET VOLUME 10.2 fL (7.4-10.4); MONOCYTES 8.1 % (2-11); NEUTROPHIL ABS# 2.73 10x3/uL (1.56-6.13); NEUTROPHILS 58.5 % (40-80); PLATELET COUNT 244 10x3/uL (130-400); RBC 3.83 10x6/uL (4.00-5.40); WBC 4.7 10x3/uL (4.8-10.8)
[2021-02-09 04:22] LABS: ALBUMIN 2.5 g/dL (3.4-5.0); ALKALINE PHOSPHATASE 72 U/L (30-120); ALT (SGPT) 14 U/L (10-68); BILIRUBIN - TOTAL 0.32 mg/dL (0.2-1.3); CALCIUM 8.7 mg/dL (8.5-10.1); CARBON DIOXIDE 28.6 mmol/L (21.0-32.0); CHLORIDE - SERUM 103 mmol/L (98-107); CKMB 0.4 U/L (0.0-3.6); CREATINE KINASE 33 UL (21-215); CREATININE - SERUM 0.6 mg/dL (0.6-1.3); GLUCOSE 102 mg/dL (74-106); POTASSIUM - SERUM 3.9 mmol/L (3.5-5.1); PROTEIN - SERUM 6.2 g/dL (6.4-8.2); SODIUM 138 mmol/L (136-145); eGFR NON AFRICAN AMERICAN > 90 mL/min (90-120)
[2021-02-09 04:29] LABS: CALC OSMOLALITY 274 mosm/kg (275-300); TROPONIN-I < 0.017 ng/mL (0.000-0.060); UREA NITROGEN 11 mg/dL (7-18)
--- NOTE | 2021-02-09 06:39 | NUR ---
PT SITTING AT BEDSIDE THIS MORNING CRYING AND TRYING TO REMOVE TELE AFTER ALREADY REMOVING DOMINIQUE PRESSURE PAD OFF BED AND REFUSING TO ALLOW IT TO BE PLACED BACK ON. THIS NURSE DID GO SPEAK WITH PT WHO VERBALIZED SHE IS INCREDIBLY ANXIOUS ABOUT HER DAUGHTER COMING. 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 PT DID REQUEST SOMETHING FURTHER FOR ANXIETY AND SAME GIVEN. PT HAS A PLAN TO CALL NURSES FOR ASSIST IF SHE FEELS DAUGHTER IS TO ABRASSIVE WITH HER. THIS NURSE WILL PASS SAME ONTO DAY NURSE IN WALKING ROUND REPORT.
--- NOTE | 2021-02-09 07:30 | NUR ---
REC'D IN BED DURING WALKING ROUNDS AWAKE AND ALERT. RESP EVEN AND UNLABOREDW WITH NO DISTRESS NOTED. CAN EXPRESS NEEDS AND WANTS.NO C/O NOTED OR VOICED AT THIS TIME. ASSESSMENT COMPLETED. C/L IN REACH AT BEDSIDE.
[2021-02-09 08:50] VITALS: BP 167/72
[2021-02-09 10:00] LABS: CKMB 0.3 U/L (0.0-3.6); CREATINE KINASE 24 UL (21-215)
[2021-02-09 10:01] LABS: TROPONIN-I < 0.017 ng/mL (0.000-0.060)
--- NOTE | 2021-02-09 12:00 | NUR ---
CHEST TUBE WAS REMOVED AT THIS TIME BY NURSE FROM IR. TOLERATED WELL. NO C/O NOTED AT THIS TIME. C/L IN REACH AT BEDSIDE.
--- NOTE | 2021-02-09 14:02 | NUR ---
PATIENT REFUSED PT VERY EMOTIONAL AFTER NEWS FROM SHELL
[2021-02-09 14:48] VITALS: BP 160/70
[2021-02-09 15:51] LABS: CKMB 0.6 U/L (0.0-3.6); CREATINE KINASE 29 UL (21-215); TROPONIN-I < 0.017 ng/mL (0.000-0.060)
[2021-02-09 17:51] VITALS: BP 162/73
[2021-02-09 20:00] VITALS: BP 122/71
--- NOTE | 2021-02-09 23:09 | NUR ---
PT REFUSING TELE. SAME D/C'D BY PROVIDER O/C KIKI HAMILTON.
[2021-02-10] VITALS: BP 107/71
[2021-02-10 04:00] VITALS: BP 115/64
--- NOTE | 2021-02-10 06:09 | NUR ---
PT DID VERBALIZE SOME ANXIETY THIS AM ABOUT GOING HOME. DID STATE THAT SHE IS EXCITED BUT, IT WAS CAUSING HER A PANICK ATTACK AND REQUESTED PRN XANAX. THIS NURSE DID REVIEW SIDE EFFECTS OF GROGGINESS AND UNSTEADY GAIT WITH PT AND SHE VERBALIZED SHE UNDERSTANDS AND WANTED SAME. ADMINISTERED AND PT REPORTS GOOD EFFECT. PT IS IN BED RESTING AGAIN.
[2021-02-10 07:16] LABS: BASOPHILS 0.4 % (0-2); EOSINOPHILS 8.2 % (0-7); HEMATOCRIT 35.1 % (36.0-48.0); HEMOGLOBIN 11.3 g/dL (12-16); IMMATURE GRANULOCYTES 0.6 % (0-5); LYMPHOCYTE ABS# 1.28 10x3/uL (1.18-3.74); LYMPHOCYTES 26.4 % (15-50); MCH 27.3 pg (26.0-34.0); MCHC 32.2 g/dL (31.0-37.0); MCV 84.8 fL (80.0-100.0); MEAN PLATELET VOLUME 10.4 fL (7.4-10.4); MONOCYTES 8.7 % (2-11); NEUTROPHILS 55.7 % (40-80); RBC 4.14 10x6/uL (4.00-5.40); WBC 4.9 10x3/uL (4.8-10.8)
--- NOTE | 2021-02-10 07:25 | NUR ---
RECIEVED BEDSIDE RPEORT. IN BED SLEEPING, FREE FROM SIGNS OF DISTRESS. BED LOW POSITION, CALL LIGHT IN REACH. NASAL CANNULA IN PLACE. WILL CONTINUE TO MONITOR.
[2021-02-10 07:28] LABS: PLATELET COUNT 316 10x3/uL (130-400)
[2021-02-10 07:30] LABS: ALKALINE PHOSPHATASE 82 U/L (30-120); ALT (SGPT) 17 U/L (10-68); BILIRUBIN - TOTAL 0.42 mg/dL (0.2-1.3); CALCIUM 9.3 mg/dL (8.5-10.1); CARBON DIOXIDE 28.3 mmol/L (21.0-32.0); CHLORIDE - SERUM 102 mmol/L (98-107); CREATININE - SERUM 0.7 mg/dL (0.6-1.3); GLUCOSE 101 mg/dL (74-106); POTASSIUM - SERUM 3.4 mmol/L (3.5-5.1); PROTEIN - SERUM 7.4 g/dL (6.4-8.2); SODIUM 139 mmol/L (136-145); eGFR NON AFRICAN AMERICAN 85 mL/min (90-120)
[2021-02-10 07:35] LABS: CALC OSMOLALITY 278 mosm/kg (275-300); UREA NITROGEN 15 mg/dL (7-18)
[2021-02-10 10:11] VITALS: BP 110/50
[2021-02-10] MEDS ORDERED: IPRAT-ALBUT 0.5-3 ML UPD (12:34)
[2021-02-10] MEDS ORDERED: FLUTICASONE PRO16 GM NASAL (12:35)
[2021-02-10] MEDS ORDERED: Mylicon / Gas-X Che PO (12:35)
[2021-02-10] MEDS ORDERED: PROTONIX40 MG PO (12:35)
--- NOTE | 2021-02-10 14:03 | NUR ---
WALKED 100FT WITH MIN ASSIT A BIT UNBALANCE BUT WILL DO WELL WITH A WALKER
[2021-02-10 14:48] VITALS: BP 118/56
--- NOTE | 2021-02-10 15:46 | NUR ---
SPOKE TO MRI AND THEY SAID THE MACHINE SHOULD BE UP AND RUNNING ABOUT 7PM TONIGHT. SPOKE TO NEIL PEREZ APRN ABOUT A VALIUM DOSE BEFOR ETHE PROCEDURE. ORDERS IN NOV. SPOKE TO THE PATIENT AND FAMILY ABOUT THE PLAN AND THEY ARE IN AGREEANCE
[2021-02-10 17:11] VITALS: BP 132/77
--- NOTE | 2021-02-10 17:25 | MORECARE ---
CASE MANAGEMENT DISCHARGE SUMMARY PATIENT: JADIEL PATINO UNIT: [id number] ADM DATE: 02/01/21 AGE: 80 : 40 SEX: F ROOM/BED: D.2209 AUTHOR: ISA,DOC PHYSICIAN: REFERRING PHYSICIAN: LETHA SAMSON MD DATE OF SERVICE: 02/10/21 Case Management Discharge Planning Summary COMMENTS ENTERED DATE: 02/10/21 17:16 CT COMMENT TYPE: Discharge Planning REVIEWER: Phylicia Hunt CM met with patient to complete initial dc planning assessment. CM educated patient on the CM role and verbal consent given by patient to complete assessment. Patient lives at home independently where she plans on returning tonight after her MRI. At discharge patient plans to return home and feels this is a safe discharge. CM discussed availability of home health, rehab services, and medical equipment. She denies any needs. They did order a nebulizer for her to go home with and it was delivered to her room. Her medications will be delivered to her home by [facility], but she will have to purchase a box of meds till those can ship out. She stated she understood. DAQUAN signed for whoever took her insurance. Her son Dread will be her grab driver home tonight. Patient denied known discharge needs at this time. CM will continue to follow and will assist as needed with dc plans/needs. DCP REVIEW SUMMARY ANTICIPATED D/C DATE: EXPECTED LOS : CASE STATUS: DCP Initiated INITIAL REVIEW: 02/01/2021 INITIAL REVIEWER: Phylicia Hunt FINAL DISCHARGE DISPOSITION: : FINAL REVIEWER: FINAL REVIEW DATE: DCP Focus Questions & Answers QUESTION: ANSWER : PATIENT: JADIEL PATINO ENCOUNTER: [id number] MEDICAL RECORD#: [id number] ADMISSION DATE: 02/01/2021 DISCHARGE DATE: ATTENDING MD: MALI SAMSON : AGE: 80 MARITAL STATUS: W DC PLAN ID: [id number] FACILITY: [facility] PRINTED ON: 02/10/21 17:25 CT All edits/amendments must be made on the electronic document DICTATION DATE: 02/10/211724 SENIOR ACCOUNTANT ANALYST: JAYCE 02/10/211724 RPT#: [id number] DC DATE: STATUS: ADM IN [facility] [address] [place] [address] END OF REPORT
[2021-02-10 20:00] VITALS: BP 161/80
--- NOTE | 2021-02-10 20:54 | NUR ---
REMOVED PIV FROM RIGHT AC, NO REDNESS OR SWEELING, TOLERATED WELL. PT ESCORTED TO ER ENTRANCE VIA WHEELCHAIR.
--- NOTE | 2021-02-11 14:08 | MORECARE ---
CASE MANAGEMENT DISCHARGE SUMMARY PATIENT: JADIEL PATINO UNIT: [id number] ADM DATE: 02/01/21 AGE: 80 : 40 SEX: F ROOM/BED: D.2209 AUTHOR: ISA,DOC PHYSICIAN: REFERRING PHYSICIAN: LETHA SAMSON MD DATE OF SERVICE: 02/11/21 Case Management Discharge Planning Summary COMMENTS ENTERED DATE: 02/10/21 17:16 CT COMMENT TYPE: Discharge Planning REVIEWER: Phylicia Hunt CM met with patient to complete initial dc planning assessment. CM educated patient on the CM role and verbal consent given by patient to complete assessment. Patient lives at home independently where she plans on returning tonight after her MRI. At discharge patient plans to return home and feels this is a safe discharge. CM discussed availability of home health, rehab services, and medical equipment. She denies any needs. They did order a nebulizer for her to go home with and it was delivered to her room. Her medications will be delivered to her home by [facility], but she will have to purchase a box of meds till those can ship out. She stated she understood. DAQUAN signed for whoever took her insurance. Her son Dread will be her parts driver home tonight. Patient denied known discharge needs at this time. CM will continue to follow and will assist as needed with dc plans/needs. DCP REVIEW SUMMARY ANTICIPATED D/C DATE: EXPECTED LOS : CASE STATUS: DCP Initiated INITIAL REVIEW: 02/01/2021 INITIAL REVIEWER: Phylicia Hunt FINAL DISCHARGE DISPOSITION: : FINAL REVIEWER: FINAL REVIEW DATE: DCP Focus Questions & Answers QUESTION: ANSWER : PATIENT: JADIEL PATINO ENCOUNTER: [id number] MEDICAL RECORD#: [id number] ADMISSION DATE: 02/01/2021 DISCHARGE DATE: 02/10/2021 ATTENDING MD: MALI SAMSON : AGE: 80 MARITAL STATUS: W DC PLAN ID: [id number] FACILITY: [facility] PRINTED ON: 02/11/21 14:08 CT All edits/amendments must be made on the electronic document DICTATION DATE: 02/11/211407 BLEACH BOILER PULLER: JAYCE 02/11/21 1408 RPT#: [id number] DC DATE:02/10/21 STATUS: DIS IN [facility] [address] [place] [address] END OF REPORT
== END 2021-02-10 20:55 | disposition home or self-care (01) | DRG 439 ==
LOC: D.ER 06:46 → D.MS 10:14
PROVIDERS: Family Medicine; Radiology Diagnostic Radiology; ADMIT Family Medicine; ATTEND Family Medicine
PROC: 0BBG3ZX Excision of Left Upper Lung Lobe, Percutaneous Approach, Diagnostic (ICD-10-PCS; 2021-02-04)
PROC: 0W9B30Z Drainage of Left Pleural Cavity with Drainage Device, Percutaneous Approach (ICD-10-PCS; principal; 2021-02-04 10:00)
DX: K85.30 Drug induced acute pancreatitis without necrosis or infection (principal); N39.0 Urinary tract infection, site not specified; C34.12 Malignant neoplasm of upper lobe, left bronchus or lung; J98.11 Atelectasis; J93.9 Pneumothorax, unspecified; I10 Essential (primary) hypertension; I25.10 Atherosclerotic heart disease of native coronary artery without angina pectoris; H26.9 Unspecified cataract; R91.1 Solitary pulmonary nodule; N28.1 Cyst of kidney, acquired; T46.2X5A Adverse effect of other antidysrhythmic drugs, initial encounter

== ENCOUNTER 2021-02-17 12:03 | Inpatient (IN) | payer MEDICARE ==
[~2021-02-17] VITALS: Ht 149.9 cm; Wt 49.4 kg
[~2021-02-17 12:03] MED LIST changes: +FLUTICASONE PRO16 GM NASAL; +IPRAT-ALBUT 0.5-3 ML UPD; +Mylicon / Gas-X Che PO; +PROTONIX40 MG PO
[2021-02-17 12:34] LABS: BASOPHILS 0.4 % (0-2); EOSINOPHILS 0.9 % (0-7); HEMATOCRIT 40.5 % (36.0-48.0); HEMOGLOBIN 13.2 g/dL (12-16); MCH 27.1 pg (26.0-34.0); MCHC 32.4 g/dL (31.0-37.0); MCV 83.4 fL (80.0-100.0); MEAN PLATELET VOLUME 7.5 fL (7.4-10.4); MONOCYTES 3.9 % (2-11); NEUTROPHILS 81.8 % (40-80); RBC 4.86 10x6/uL (4.00-5.40); RDW 13.6 % (11.5-14.5)
[2021-02-17 12:44] LABS: CALC OSMOLALITY 275 mosm/kg (275-300); CALCIUM 9.4 mg/dL (8.5-10.1); CARBON DIOXIDE 27.8 mmol/L (21.0-32.0); CHLORIDE - SERUM 98 mmol/L (98-107); CREATININE - SERUM 0.9 mg/dL (0.6-1.3); GLUCOSE 120 mg/dL (74-106); POTASSIUM - SERUM 3.8 mmol/L (3.5-5.1); SODIUM 135 mmol/L (136-145); UREA NITROGEN 26 mg/dL (7-18); eGFR NON AFRICAN AMERICAN 64 mL/min (90-120)
[2021-02-17 12:52] LABS: ALBUMIN 3.7 g/dL (3.4-5.0); ALKALINE PHOSPHATASE 94 U/L (30-120); ALT (SGPT) 19 U/L (10-68); BILIRUBIN - TOTAL 0.31 mg/dL (0.2-1.3); TROPONIN-I < 0.017 ng/mL (0.000-0.060)
[2021-02-17 13:00] LABS: PLATELET COUNT 400 10x3/uL (130-400)
[2021-02-17 13:12] LABS: AMYLASE - SERUM 4508 U/L (25-115)
[2021-02-17 13:15] LABS: LIPASE 20003 U/L (73-393)
[2021-02-17 15:25] LABS: INR 1.15 (0.85-1.17); PROTIME 13.6 SECONDS (11.6-15.0)
[2021-02-17 15:36] VITALS: BP 133/76
[2021-02-17 15:41] LABS: LDL-HDL RATIO 1.8 ratio (1.5-3.5)
[2021-02-17 16:00] VITALS: BP 126/78
--- NOTE | 2021-02-17 16:36 | NUR ---
PT ARRIVED AT THIS TIME VIA STRETCHER. PT AMBULATED TO BED WITHOUT ASSISTANCE. SLOW STEADY GAIT. RR EVEN NON LABORED ON ROOM AIR. PT DAUGHTER AT BEDSIDE. PT AWAKE AND ALERT, ANSWERS QUESTIONS APPROP, AAOX3. PAIN REPORTED 05/11. WILL BEGIN [employer] PUMP PER ORDERS.
[2021-02-17 16:57] VITALS: BMI 22.0
--- NOTE | 2021-02-17 17:01 | NUR ---
GEAR SHAPER MORPHINE PUMP INITIATED, 1.9ML USED TO PRIME LINE. INSTRUCTION GIVEN TO PT AT THIS TIME, PT STATES UNDERSTANDING.
[2021-02-17 17:09] VITALS: BP 155/80
--- NOTE | 2021-02-17 17:26 | NUR ---
FALL PRECAUTIONS IN PLACE D/T [place] AND STEEL ERECTING PUSHER PUMP. PT AWARE TO USE CALL LIGHT PRIOR TO EXITING BED. CLWR.
--- NOTE | 2021-02-17 19:33 | NUR ---
RECIEVD UP IN BED WITH EYES OPEN AND TV ON. ALERT AND ORIETNED X4. UP WITH ASSIST. DENIES ANY NEEDS AT THIS TIME.
[2021-02-17 21:32] VITALS: BP 121/74
[2021-02-18 01:21] VITALS: BP 110/63
--- NOTE | 2021-02-18 02:26 | NUR ---
SHE WAS UP SET AND SAID HER BIOPHYSICS PROFESSOR WAS NOT WORKING. PULLED RANDALL FROM PXYSIS AND RESTARTED. C/O MEDICATION NOT WORKING. GAVE HER A 2 MG BOLUS ORDERED. ASKED HER TO TRY AND REST TO LET THE MEDICATION WORK. SHE AGREED.
[2021-02-18 05:06] VITALS: BP 112/60
[2021-02-18 06:26] LABS: BASOPHILS 0.2 % (0-2); EOSINOPHILS 1.3 % (0-7); HEMATOCRIT 36.5 % (36.0-48.0); HEMOGLOBIN 11.8 g/dL (12-16); MCH 26.9 pg (26.0-34.0); MCHC 32.4 g/dL (31.0-37.0); MEAN PLATELET VOLUME 7.6 fL (7.4-10.4); MONOCYTES 3.9 % (2-11); NEUTROPHILS 87.6 % (40-80); PLATELET COUNT 301 10x3/uL (130-400); RDW 13.7 % (11.5-14.5); WBC 9.6 10x3/uL (4.8-10.8)
[2021-02-18 06:42] LABS: ALBUMIN 3.1 g/dL (3.4-5.0); ALKALINE PHOSPHATASE 77 U/L (30-120); ALT (SGPT) 16 U/L (10-68); BILIRUBIN - TOTAL 0.42 mg/dL (0.2-1.3); CALC OSMOLALITY 276 mosm/kg (275-300); CALCIUM 8.2 mg/dL (8.5-10.1); CARBON DIOXIDE 24.5 mmol/L (21.0-32.0); CHLORIDE - SERUM 103 mmol/L (98-107); CREATININE - SERUM 0.7 mg/dL (0.6-1.3); GLUCOSE 95 mg/dL (74-106); POTASSIUM - SERUM 3.7 mmol/L (3.5-5.1); PROTEIN - SERUM 6.4 g/dL (6.4-8.2); SODIUM 137 mmol/L (136-145); UREA NITROGEN 22 mg/dL (7-18); eGFR NON AFRICAN AMERICAN 85 mL/min (90-120)
[2021-02-18 07:01] LABS: LIPASE 5340 U/L (73-393)
[2021-02-18 07:02] LABS: AMYLASE - SERUM 2216 U/L (25-115)
--- NOTE | 2021-02-18 07:53 | NUR ---
PT SITTING AT BEDSIDE. STATES SHE HAS HEART BURN THEN STARTED DRY HEAVING AND WET THE BED. NURSE CHANGED SHEETS AND GAVE MORNING MEDICATION FOR HEART BURN. RR EVEN NONLABORED, IV CDI. ALL NEEDS MET, CLIR.
[2021-02-18 08:17] VITALS: BP 129/48
[2021-02-18 12:11] VITALS: BP 109/67
[2021-02-18 12:23] VITALS: Ht 149.9 cm; Wt 49.4 kg
[2021-02-18 16:00] VITALS: BP 110/58
--- NOTE | 2021-02-18 18:24 | NUR ---
METROLOGY ENGINEER NOTIFIED NURSE OF TEMP OF 101. RECHECKED AND IT WAS 97.2F. PT SITTING AT BEDSIDE. ALL NEEDS MET AT THIS TIME. CLWR.
[2021-02-18 23:18] VITALS: BP 100/47
--- NOTE | 2021-02-19 01:43 | NUR ---
PT C/O ABD PAIN AND BACK PAIN. TEARFUL ON FIRST ROUDNING. ATTEMPTED TO MEET PT NEEDS. FOCUSED ON HOSPITAL UNIT CLERK AND WHEN TO PRESS THE BUTTON, 02 PLACED BY RT FOR SAT OF 88. NO N/V REPROTED. CL IN REACH.
[2021-02-19 05:18] VITALS: BP 93/46
[2021-02-19 07:18] LABS: LIPASE 297 U/L (73-393)
[2021-02-19 07:22] LABS: AMYLASE - SERUM 434 U/L (25-115)
[2021-02-19 09:20] VITALS: BP 100/51
[2021-02-19 12:42] VITALS: BP 95/48
--- NOTE | 2021-02-19 14:40 | NUR ---
REHAB PRESCREENING Rehab referral received and chart reviewed. PT has signed off to [facility] so she does not meet acute inpatient rehab criteria for admission. Thank you for this referral! Clementina Gonzalez, TELEVISION CABINET FINISHER Rehab PD
[2021-02-19 16:57] VITALS: BP 104/48
--- NOTE | 2021-02-19 20:00 | NUR ---
INITIAL ROUNDS AND ASSESSMENT COMPLETED. PT RESTING IN BED WITH NO DISTRESS. MORPHINE BATTERY CHECKER FOR PAIN CONTROL. NS @ 100ML/HR TO LEFT HAND. O2 @ 2L/NC WITH NONLABORED RESPIRATIONS. CALL LIGHT IN REACH.
[2021-02-19 20:45] VITALS: BP 97/80
--- NOTE | 2021-02-19 22:30 | NUR ---
ALL BEDTIME MEDS GIVEN. PT RESTING WITH NO DISTRESS. CALL LIGHT IN REACH.
--- NOTE | 2021-02-20 00:07 | NUR ---
PT RESTING WITH NO DISTRESS. CALL LIGHT IN REACH.
[2021-02-20 00:10] VITALS: BP 103/55
[2021-02-20 05:13] VITALS: BP 105/49
--- NOTE | 2021-02-20 06:41 | NUR ---
PT C/O NAUSEA, SPITTING UP CLEAR PHLEGM. MEDICATED WITH ZOFRAM 4MG SIVP. IVF NS @ 150ML/HR INFUSING. CALL LIGHT IN REACH.
[2021-02-20 07:52] VITALS: BP 136/72
[2021-02-20 08:09] LABS: AMYLASE - SERUM 146 U/L (25-115); LIPASE 67 U/L (73-393)
--- NOTE | 2021-02-20 09:07 | NUR ---
AAOX4 UPON ENTERING. ADMINISTERED MEDICATION, NO DIFFICULTIES. RESTING COMFORTABLY. ASSESSMENT PERFORMED AT THIS TIME. DENIES ANY NEEDS AT THIS TIME. BED IN LOWEST POSITION, BED RAILS X2, CALL LIGHT WITHIN REACH. WILL CONTINUE POC.
--- NOTE | 2021-02-20 09:54 | NUR ---
I have reviewed this patient and I concur with the Shift Assessment completed by the Licensed Practical Nurse today this shift.
--- NOTE | 2021-02-20 11:09 | NUR ---
IV REMOVED FORM LEFT HAND, CATHETER TIP INTACT. COVERD WITH GAUZE AND TAPE. TOLERATED WELL. SIGNED ALL NECESSARY PAPERWORK. WILL D/C HOME WITH FAMILY
[2021-02-20 11:11] VITALS: BP 115/59
--- NOTE | 2021-02-20 14:34 | MORECARE ---
CASE MANAGEMENT DISCHARGE SUMMARY PATIENT: JADIEL PATINO UNIT: [id number] ADM DATE: 02/17/21 AGE: 80 : 40 SEX: F ROOM/BED: D.9177 AUTHOR: ISADOC PHYSICIAN: REFERRING PHYSICIAN: RICCARDO APPIAH MD DATE OF SERVICE: 02/20/21 Case Management Discharge Planning Summary DCP REVIEW SUMMARY ANTICIPATED D/C DATE: 02/20/2021 EXPECTED LOS : 3 CASE STATUS: DCP Initiated INITIAL REVIEW: 02/17/2021 INITIAL REVIEWER: Irineo Leger FINAL DISCHARGE DISPOSITION: : FINAL REVIEWER: FINAL REVIEW DATE: DCP Focus Questions & Answers DCP Evaluation QUESTION: ANSWER Patient and/or caregiver agree upon recommended discharge plan? : Yes Family / Caregiver's ability to cope with chronic illness: : a. Adequate (ability to meet patient's medical needs, ensures patient attends medical appts.) Patient's current cognitive status: : *Oriented to person, place, situation, time and present Patient's ability to cope with chronic illness : d. No chronic illness Patient gives permission to discuss discharge plans with: (name, relationship and number) : daughterLashell, Does the patient have the ability to pay for or attain post discharge needs / services? : Yes Functional screen assessment: : Basic needs can adequately be met by self Family / Caregiver's ability to cope with chronic illness: : a. Adequate (ability to meet patient's medical needs, ensures patient attends medical appts.) Physical Status: : Independent with ADL's Equipment needed for post hospitalization: : None Is there a likelihood that the patient will require additional services to return to the preadmission environment? : Yes Living Arrangements: : Home Alone with Support Patient with capacity for self-care or can be cared for in same environment as prior to hospitalization? : Yes Baseline cognitive status: : *Oriented to person, place, situation, time and present Physical environment modification needed / anticipated for discharge: : No Medication Management: : Patient states can read and understand medication labels Medication Management: : Patient states can afford medications Pharmacy name(s): : [facility] [place] Does Patient have transportation to get home and to follow-up medical appointments when discharged from the hospital? : Yes Would patient like to participate in any Care Coordination programs (if applicable): : Not applicable Does the patient have electricity at home? : Yes Does the patient have running water in their house? : Yes Equipment in use: : Walker - Rolling Mental health screen: : No mental health history DCP Re-evaluation QUESTION: ANSWER Would patient like to participate in any Care Coordination programs (if applicable): : Not applicable PATIENT: JADIEL PATINO ENCOUNTER: [id number] MEDICAL RECORD#: [id number] ADMISSION DATE: 02/17/2021 DISCHARGE DATE: 02/20/2021 ATTENDING MD: RICCARDO DAVIS : AGE: 80 MARITAL STATUS: W DC PLAN ID: [id number] FACILITY: [facility] PRINTED ON: 02/20/21 14:34 CT All edits/amendments must be made on the electronic document DICTATION DATE: 02/20/211433 DIAL BRUSHER: JAYCE 02/20/211433 RPT#: [id number] DC DATE:02/20/21 STATUS: DIS IN [facility] [address] [place] [address] END OF REPORT
--- NOTE | 2021-02-20 14:45 | MORECARE ---
CASE MANAGEMENT DISCHARGE SUMMARY PATIENT: JADIEL PATINO UNIT: [id number] ADM DATE: 02/17/21 AGE: 80 : 40 SEX: F ROOM/BED: D.9990 AUTHOR: MARIA LUISA MOSS PHYSICIAN: REFERRING PHYSICIAN: RICCARDO APPIAH MD DATE OF SERVICE: 02/20/21 Case Management Discharge Planning Summary COMMENTS ENTERED DATE: 02/20/21 14:35 CT COMMENT TYPE: Discharge Planning REVIEWER: Irineo Leger CM met with patient and daughter, Lashell Ureña, to complete DC plan and to evaluate needs. Patient stated that she readmitted because of unbearable stomach pain. Patient stated that she was able to obtain her new medications after last discharge but unfortunately was not able to keep her follow up appointment because it had only been a week since her last DC before she readmitted. Patient stated that she followed the dc instructions given to her. It appears that this readmission was due to an exacerbation of a potential chronic condition of pancreatitis. Patient lives alone with strong family support, however her family lives out of town. Patient stated that her home is safe and has electricity and running water. Patient stated that she has no problems paying for medications and she fills her medications at [facility] in [place]. Patient stated that her primary care physician is Dr. Woods. At discharge, the patient plans to return home and feels this is a safe discharge. CM discussed availability of home health, rehab services, and medical equipment. Patient's daughter stated that they would like HHS with PT. Patient has a walker and cane at home but feels weakened. Patient and daughter declined SNF, IPR, and DME. DAQUAN signed for [facility] and placed on chart. CM spoke with Vipul with [facility]. Vipul stated that SOC can be tomorrow. Patient voiced no other needs at this time and is satisfied with DC plan. Transportation provider at discharge will be with her daughter, Lashell. DC IMM delivered, explained, signed by the patient, and placed in chart. Signed form also left with the patient. CM will continue to follow and will assist as needed with dc plans/needs DCP REVIEW SUMMARY ANTICIPATED D/C DATE: 02/20/2021 EXPECTED LOS : 3 CASE STATUS: DCP Initiated INITIAL REVIEW: 02/17/2021 INITIAL REVIEWER: Irnieo Legre FINAL DISCHARGE DISPOSITION: : FINAL REVIEWER: FINAL REVIEW DATE: DCP Focus Questions & Answers DCP Evaluation QUESTION: ANSWER Patient and/or caregiver agree upon recommended discharge plan? : Yes Family / Caregiver's ability to cope with chronic illness: : a. Adequate (ability to meet patient's medical needs, ensures patient attends medical appts.) Patient's current cognitive status: : *Oriented to person, place, situation, time and present Patient's ability to cope with chronic illness : d. No chronic illness Patient gives permission to discuss discharge plans with: (name, relationship and number) : daughterLashell, Does the patient have the ability to pay for or attain post discharge needs / services? : Yes Functional screen assessment: : Basic needs can adequately be met by self Family / Caregiver's ability to cope with chronic illness: : a. Adequate (ability to meet patient's medical needs, ensures patient attends medical appts.) Physical Status: : Independent with ADL's Equipment needed for post hospitalization: : None Is there a likelihood that the patient will require additional services to return to the preadmission environment? : Yes Living Arrangements: : Home Alone with Support Patient with capacity for self-care or can be cared for in same environment as prior to hospitalization? : Yes Baseline cognitive status: : *Oriented to person, place, situation, time and present Physical environment modification needed / anticipated for discharge: : No Medication Management: : Patient states can read and understand medication labels Medication Management: : Patient states can afford medications Pharmacy name(s): : [facility] Does Patient have transportation to get home and to follow-up medical appointments when discharged from the hospital? : Yes Would patient like to participate in any Care Coordination programs (if applicable): : Not applicable Does the patient have electricity at home? : Yes Does the patient have running water in their house? : Yes Equipment in use: : Walker - [place] Mental health screen: : No mental health history DCP Re-evaluation QUESTION: ANSWER Would patient like to participate in any Care Coordination programs (if applicable): : Not applicable PATIENT: JADIEL PATINO ENCOUNTER: [id number] MEDICAL RECORD#: [id number] ADMISSION DATE: 02/17/2021 DISCHARGE DATE: 02/20/2021 ATTENDING MD: RICCARDO DAVIS DOB: AGE: 80 MARITAL STATUS: W DC PLAN ID: [id number] FACILITY: [facility] PRINTED ON: 02/20/21 14:45 CT All edits/amendments must be made on the electronic document DICTATION DATE: 02/20/211444 CMA OR LPN: JAYCE 02/20/211444 RPT#: [id number] DC DATE:02/20/21 STATUS: DIS IN [facility] [address] [place] [address] END OF REPORT
--- NOTE | 2021-02-22 12:22 | MORECARE ---
CASE MANAGEMENT DISCHARGE SUMMARY PATIENT: JADIEL PATINO UNIT: [id number] ADM DATE: 02/17/21 AGE: 80 : 40 SEX: F ROOM/BED: D.3250 AUTHOR: MARIA LUISA MOSS PHYSICIAN: REFERRING PHYSICIAN: RICCARDO APPIAH MD DATE OF SERVICE: 02/22/21 Case Management Discharge Planning Summary COMMENTS ENTERED DATE: 02/20/21 14:35 CT COMMENT TYPE: Discharge Planning REVIEWER: Irineo Leger CM met with patient and daughter, Lashell Ureña, to complete DC plan and to evaluate needs. Patient stated that she readmitted because of unbearable stomach pain. Patient stated that she was able to obtain her new medications after last discharge but unfortunately was not able to keep her follow up appointment because it had only been a week since her last DC before she readmitted. Patient stated that she followed the dc instructions given to her. It appears that this readmission was due to an exacerbation of a potential chronic condition of pancreatitis. Patient lives alone with strong family support, however her family lives out of town. Patient stated that her home is safe and has electricity and running water. Patient stated that she has no problems paying for medications and she fills her medications at [facility] in [place]. Patient stated that her primary care physician is Dr. Woods. At discharge, the patient plans to return home and feels this is a safe discharge. CM discussed availability of home health, rehab services, and medical equipment. Patient's daughter stated that they would like HHS with PT. Patient has a walker and cane at home but feels weakened. Patient and daughter declined SNF, IPR, and DME. DAQUAN signed for [facility] and placed on chart. CM spoke with Vipul with [facility]. Vipul stated that SOC can be tomorrow. Patient voiced no other needs at this time and is satisfied with DC plan. Transportation provider at discharge will be with her daughter, Lashell. DC IMM delivered, explained, signed by the patient, and placed in chart. Signed form also left with the patient. CM will continue to follow and will assist as needed with dc plans/needs DCP REVIEW SUMMARY ANTICIPATED D/C DATE: 02/20/2021 EXPECTED LOS : 3 CASE STATUS: DCP Initiated INITIAL REVIEW: 02/17/2021 INITIAL REVIEWER: Irineo Leger FINAL DISCHARGE DISPOSITION: : FINAL REVIEWER: FINAL REVIEW DATE: DCP Focus Questions & Answers DCP Evaluation QUESTION: ANSWER Patient and/or caregiver agree upon recommended discharge plan? : Yes Family / Caregiver's ability to cope with chronic illness: : a. Adequate (ability to meet patient's medical needs, ensures patient attends medical appts.) Patient's current cognitive status: : *Oriented to person, place, situation, time and present Patient's ability to cope with chronic illness : d. No chronic illness Patient gives permission to discuss discharge plans with: (name, relationship and number) : daughterLashell, Does the patient have the ability to pay for or attain post discharge needs / services? : Yes Functional screen assessment: : Basic needs can adequately be met by self Family / Caregiver's ability to cope with chronic illness: : a. Adequate (ability to meet patient's medical needs, ensures patient attends medical appts.) Physical Status: : Independent with ADL's Equipment needed for post hospitalization: : None Is there a likelihood that the patient will require additional services to return to the preadmission environment? : Yes Living Arrangements: : Home Alone with Support Patient with capacity for self-care or can be cared for in same environment as prior to hospitalization? : Yes Baseline cognitive status: : *Oriented to person, place, situation, time and present Physical environment modification needed / anticipated for discharge: : No Medication Management: : Patient states can read and understand medication labels Medication Management: : Patient states can afford medications Pharmacy name(s): : [facility] Does Patient have transportation to get home and to follow-up medical appointments when discharged from the hospital? : Yes Would patient like to participate in any Care Coordination programs (if applicable): : Not applicable Does the patient have electricity at home? : Yes Does the patient have running water in their house? : Yes Equipment in use: : Walker - [place] Mental health screen: : No mental health history DCP Re-evaluation QUESTION: ANSWER Would patient like to participate in any Care Coordination programs (if applicable): : Not applicable PATIENT: JADIEL PATINO ENCOUNTER: [id number] MEDICAL RECORD#: [id number] ADMISSION DATE: 02/17/2021 DISCHARGE DATE: 02/20/2021 ATTENDING MD: RICCARDO DAVIS DOB: AGE: 80 MARITAL STATUS: W DC PLAN ID: [id number] FACILITY: [facility] PRINTED ON: 02/22/21 12:22 CT All edits/amendments must be made on the electronic document DICTATION DATE: 02/22/211221 MANAGER HOSPITALITY: JAYCE 02/22/211221 RPT#: [id number] DC DATE:02/20/21 STATUS: DIS IN [facility] [address] [place] [address] END OF REPORT
== END 2021-02-20 12:02 | disposition home health service (06) | DRG 439 ==
LOC: D.ER 12:03 → D.M2 14:30
PROVIDERS: Family Medicine; ADMIT Family Medicine Adult Medicine; ATTEND Family Medicine Adult Medicine
DX: K85.90 Acute pancreatitis without necrosis or infection, unspecified (principal); E87.1 Hypo-osmolality and hyponatremia; I25.10 Atherosclerotic heart disease of native coronary artery without angina pectoris; I10 Essential (primary) hypertension; K86.1 Other chronic pancreatitis; Z95.5 Presence of coronary angioplasty implant and graft